=== PATIENT | male | born 1950 | race Caucasian/White ===

== ENCOUNTER 2016-11-06 16:28 | Inpatient (IN) ==
[2016-11-06] MEDS ORDERED: 0.9 % Sodium Chloride 1,000 ML IVC ONE ×2 (16:34→17:49)
[2016-11-06] MEDS ORDERED: Ondansetron 4 MG/2 ML VIAL IVP ONE (16:34)
[2016-11-06] MEDS ORDERED: 0.9 % Sodium Chloride 1,000 ML ONE (16:36)
[2016-11-06 17:27] LABS: Basophils % 0.2 %; Eosinophils # 0.1 K/mcL (0.0-0.6); Eosinophils % 0.3 %; Hemoglobin 12.9 g/dL (12.9-16.9); Immature Granulocytes % 0.6 % (0-4); Lymphocytes # 1.2 K/mcL (0.6-4.6); Mean Corpuscular HGB Conc 32.3 g/dL (31.6-35.5); Mean Corpuscular Hemoglobin 30.3 pg (28.0-33.3); Mean Corpuscular Volume 93.9 fL (83.0-100.0); Mean Platelet Volume 9.6 fL (9.4-12.4); Monocytes # 1.7 K/mcL (0.0-1.3); Monocytes % 8.7 %; Neutrophils # 16.2 K/mcL (1.6-8.9); Platelet Count 345 K/mcL (140-400); Red Blood Count 4.26 M/mcL (4.19-5.50); Red Cell Distribution Width 16.1 % (11.5-14.5); Segmented Neutrophils % 84.2 %
[2016-11-06 17:47] LABS: Albumin 2.7 g/dL (3.5-5.0); Albumin/Globulin Ratio 0.7 (1.1-2.2); Bilirubin,Direct 1.4 mg/dL (0.0-0.5); Bilirubin,Indirect 0.6 mg/dL (0.0-1.2); Calcium 10.6 mg/dL (8.6-10.8); Potassium 6.4 mEq/L (3.5-4.5); Total Protein 6.7 g/dL (6.0-8.3)
[2016-11-06] MEDS ORDERED: Calcium Gluconate 1,000 MG in D5% in Water 100 ML IVPB ONE (18:09)
[2016-11-06 18:28] LABS: INR 1.1; Prothrombin Time 12.2 Seconds (9.4-12.1)
[2016-11-06 18:30] LABS: Activated Partial Thrombo Time 27.3 Seconds (26.0-36.0)
[2016-11-06] MEDS: Ertapenem 1,000 MG in 0.9 % Sodium Chloride Mini Bag 100 ML IVPB SCH (18:42)
[2016-11-06] MEDS ORDERED: Ipratropium/Albuterol Neb 3 ML IH ONE (18:59)
[2016-11-06] MEDS ORDERED: methylPREDNISolone 125 MG/2 ML VIAL IVP ONE (18:59)
--- NOTE | 2016-11-06 19:12 | Emergency Department Note ---
Disposition Clinical Impression: Lung nodules, Liver lesion, Acute kidney injury, Hyperkalemia, Hypercalcemia Abdominal pain Qualifiers: Abdominal location: generalized Qualified Code(s): R10.84 - Generalized abdominal pain Disposition: Admitted As Inpatient Condition: Fair [facility] Provider[facility] - Forms: ED Satisfaction Letter, Work/School Release Time of Disposition: 20:37 Abdominal Pain HPI - General Chief Complaint: ED Abdominal Pain Stated Complaint: abdominal pain Time Seen by Provider: 11/06/16 16:34 Source: patient, EMS Mode of arrival: ambulatory Limitations: no limitations Nursing Notes Reviewed: Yes Vital Signs Reviewed: Yes - History of Present Illness HPI Narrative: Patient presents emergency room from the [facility] for evaluation of abdominal pain. You are seeing another facility and they are concerned because he is describing visual hallucinations and abdominal discomfort over the last 2- 3 days. Denied any other issues prior to transport. Pt Subjective Complaint: abdominal pain Onset (ago): day(s) Consistency: constant Location: periumbilical Pain Severity: mild Pain Scale: 0 Quality: cramping, stabbing, aching Radiation: none Migration to: no migration Improves with: nothing Worsens with: movement Context: history of similar episodes Associated symptoms: Reports: denies other symptoms Treatments prior to arrival: none - Related Data Home Medications Medication Instructions Recorded Confirmed Multivitamin [Multi-Day Vitamins] 1 each PO DAILY 03/22/15 11/06/16 Omeprazole [PriLOSEC] 20 mg PO BIDAC 03/22/15 11/06/16 Quetiapine Fumarate [Seroquel Xr] 150 mg PO HS 03/22/15 11/06/16 Alendronate Sodium [Fosamax] 70 mg PO QWEEK 10/30/16 11/06/16 Calcium Carbonate [Calcium] 600 mg PO DAILY 10/30/16 11/06/16 Cholecalciferol (Vitamin D3) 2,000 unit PO DAILY 10/30/16 11/06/16 [Vitamin D] Dicyclomine [Bentyl] 20 mg PO QID 10/30/16 11/06/16 HYDROcodone/Acet 5/325 mg [[place] 1.5 tab PO TID PRN 10/30/16 11/06/16 5-325 mg] Lisinopril [Zestril] 20 mg PO DAILY 10/30/16 11/06/16 Loratadine [Claritin] 10 mg PO DAILY 10/30/16 11/06/16 Magnesium Oxide [Magnesium] 400 mg PO DAILY 10/30/16 11/06/16 Metoprolol Succinate 50 mg PO DAILY 10/30/16 11/06/16 Montelukast [Singulair] 10 mg PO DAILY 10/30/16 11/06/16 Ondansetron HCl 8 mg PO TID PRN 10/30/16 11/06/16 Pravastatin Sodium [Pravachol] 20 mg PO DAILY 10/30/16 11/06/16 Theophylline Anhydrous [Henri-24] 100 mg PO DAILY 10/30/16 11/06/16 Vitamin E 400 unit PO TID 10/30/16 11/06/16 predniSONE [PredniSONE] 10 mg PO DAILY 10/30/16 11/06/16 Amoxicillin/Clavulanate [Augmentin] 875 mg PO BIDWM 11/06/16 11/06/16 Apoaequorin 10 mg PO DAILY 11/06/16 Budesonide/Formoterol 160/4.5 2 puff IH BIDR 11/06/16 11/06/16 [Symbicort 160/4.5] Gabapentin [Neurontin] 500 mg PO QID 11/06/16 11/06/16 GuaiFENesin/Dextromethorphan 10 ml PO Q4H PRN 11/06/16 11/06/16 [Tussin Dm Syrup] Guaifenesin [Tab Tussin] 400 mg PO Q12H PRN 11/06/16 11/06/16 Lactose-Reduced Food [Ensure Plus] 1 - 2 bottle PO BID 11/06/16 11/06/16 Levalbuterol Neb [Xopenex Neb] 1 vial IH Q6H PRN 11/06/16 11/06/16 Levalbuterol [Xopenex INH] 2 puff IH Q6H PRN 11/06/16 11/06/16 Lidocaine 4% CRM (LMX) [Lmx 4] 1 appl TP BID 11/06/16 11/06/16 Nicotine Polacrilex [Nicotine 2 mg BC BID PRN 11/06/16 11/06/16 Lozenge] Potassium Gluconate [Potassium] 400 mg PO DAILY 11/06/16 11/06/16 Tiotropium [Spiriva] 1 puff IH QAM 11/06/16 11/06/16 Previous Rx's Medication Instructions Recorded Doxycycline 100 mg PO BID #20 capsule 11/01/16 Allergies Allergy/AdvReac Type Severity Reaction Status Date / Time ampicillin Allergy Hives Verified 11/06/16 19:02 rosuvastatin [From Crestor] AdvReac Diarrhea Verified 11/06/16 19:02 [id number] Reductase AdvReac Diarrhea Verified 11/06/16 19:02 Inhibitor [Statins] All systems ED: reviewed and negative except as stated. Review of Systems: As Per HPI Constitutional: Reports: weakness. Denies: fever, chills Cardiovascular: Denies: chest pain, palpitations, dyspnea on exertion, orthopnea , edema Respiratory: Denies: cough, dyspnea, wheezes, hemoptysis Gastrointestinal: Reports: abdominal pain, nausea. Denies: vomiting, diarrhea, constipation Genitourinary: Denies: urgency, dysuria, frequency Musculoskeletal: Reports: back pain. Denies: neck pain Neurological: Denies: headache Psychiatric: Denies: anxiety, depression, suicidal thoughts, homicidal thoughts , auditory hallucinations, visual hallucinations Abdominal Pain PMH - Past Medical History Medical history: Reports: COPD, hyperlipidemia, hypertension Male Surgical History: Reports: herniorrhaphy Psychiatric history: Reports: no psych history - Social History Smoking status: Former smoker Alcohol use: Reports: none Drug use: Reports: none Physical Exam - General Limitations: no limitations General appearance: alert, in no apparent distress - Head Head exam: atraumatic, normocephalic, normal inspection - ENT ENT exam: normal exam, normal oropharynx, mucous membranes moist - Neck Neck exam: Present: normal inspection, full ROM, trachea midline - Chest Chest inspection: Present: normal inspection, symmetric chest wall rise - Respiratory Respiratory exam: Present: normal lung sounds bilaterally. Absent: respiratory distress, wheezes, stridor, accessory muscle use - Cardiovascular Cardiovascular exam: Present: normal rhythm, tachycardia. Absent: irregular rhythm, normal heart sounds - Abdominal Exam Abdominal exam: Present: soft, tenderness, normal bowel sounds. Absent: distention, guarding, rebound, rigidity, Stringer's sign, Rovsing's sign, tenderness at McBurney's Point, pulsatile mass, hernia - Extremities Exam Extremities exam: Present: normal inspection, full ROM, normal capillary refill. Absent: tenderness, pedal edema, joint swelling - Back Exam Back exam: Present: normal inspection, full ROM. Absent: tenderness - Neurological Exam Neurological exam: Present: alert, oriented X3, CN II-XII intact, normal gait - Psychiatric Psychiatric exam: Present: normal affect, normal mood. Absent: depressed, homicidal ideation, suicidal ideation - Skin Skin exam: Present: warm, dry, intact, normal color Course Course Narrative: Patient seen and examined the time arrival. See history of present illness. 66 -year-old male presents from [facility] for evaluation of abdominal pain and visual hallucinations. Patient had liver biopsy performed 7 days ago secondary to liver metastases. Unknown primary cancer based on history from EMS. On arrival here patient is mentating appropriately answering questions showing no acute signs of distress. He says that his abdomen hurts. He does have a history of an aortic aneurysm. Immediate bedside ultrasound was completed by myself showing stable aneurysm presentation at 4.3 cm throughout the abdominal wall. 2 different views were completed. Physical exam is otherwise benign. Head is atraumatic pupils are equal and reactive to light. He has decreased breath sounds bilaterally in the lower lungs. Heart is tachycardic but no murmurs are noted. Abdomen is soft but there is tenderness diffusely across the abdominal wall in the periumbilical region. Bowel sounds are noted in all 4 quadrants. He has no specific peritoneal-like symptoms guarding or rigidity. No CVA tenderness. No tenderness to the cervical thoracic or lumbar spine. He moves all 4 extremities with purpose is no acute signs of neurovascular decompensation or signs of ataxia or strokelike symptoms. Patient is concerning for infectious etiology secondary to the recent biopsy for antibiotic regimen for his known pneumonia. Patient is also concerning for cancer history and progression of lung metastases. Full workup to be completed including CTs of his chest and abdomen. Labs including blood cultures CBC chemistry urinalysis magnesium phosphorus to be over this time. Full infectious as well as cardiac evaluation to be completed. EKG, CT of the chest abdomen to be completed. His positional mostly banished the hospital - Reevaluation(s) Reevaluation #1: Multiple lab derangements coming back including elevated white blood cell count , potassium, calcium were all elevated. She also has newly found kidney dysfunction with creatinine of 2.34. Patient is concerning for multiple issues including infection sepsis end-stage renal disease metastatic liver disease with multiple liver function testing abnormalities. CT imaging of the abdomen and chest showed possible right lower lobe pneumonia or metastatic effusion or lesion. He also has metastatic disease in the right upper quadrant and the liver. Stable postbiopsy presentation this time. No other obstructive pathology or issues noted. Patient started on Invanz and concern for intra- abdominal pathology and then vancomycin added on at the request of the hospitalist. Patient was given Kayexalate and calcium gluconate for cardiac availability and stabilization secondary to hyperkalemia. Otherwise his EKG was reviewed showing sinus rhythm and no acute widening of the QRS or T-wave abnormalities. Patient's heart rate has been persistently tachycardic. We are unable to do an angiography study secondary to his kidney function. V/Q evaluation potential will be completed in the hospital setting. Due to the presentation symptoms medical intervention and medical history were discussed with the nurse practitioner Mali Hernadez. A review the presentation with her other recommendations from her at this time. Dr. Marques evaluated the patient personally in the emergency room. Multiple concerns from her noted at this time. Patient is critically ill we do not have a CODE STATUS. Otherwise he had no other recommendations. Patient is otherwise stable down here except for tachycardia. The rest of the medical management will be completed on the floor. Appreciate the hospitalist group evaluated the patient in the emergency room and helping with intervention. Patient to be admitted to hospitalist at this time her disposition and treatment course Time: 20:33 Vital Signs Temperature 98.9 F 11/06/16 16:30 Pulse Rate 129 11/06/16 16:30 Respiratory Rate 16 11/06/16 16:30 Blood Pressure 99/74 11/06/16 16:30 O2 Sat by Pulse Oximetry 97 11/06/16 16:30 Temperature 98.9 F 11/06/16 16:30 Pulse Rate 120 11/06/16 18:58 Respiratory Rate 18 11/06/16 18:58 Blood Pressure 122/63 11/06/16 18:58 O2 Sat by Pulse Oximetry 95 11/06/16 18:58 Oxygen Delivery Oxygen Delivery Nasal Cannula Abdominal Pain - MDM Narrative Medical decision making narrative: Abdominal pain, liver metastases, pneumonia, acute kidney insufficiency, dehydration, hyperkalemia, hypercalcemia - Medical Records Medical records reviewed: Yes I reviewed the patient's medical records. - Lab Data Lab results reviewed: Yes I reviewed the patient's lab results. Result diagrams: 11/06/16 17:15 11/06/16 17:15 Lab Results 11/06/16 11/06/16 11/06/16 Range/Units 17:15 17:15 17:15 WBC 19.2 H (4.3-11.1) K/mcL RBC 4.26 (4.19-5.50) M/mcL Hgb 12.9 (12.9-16.9) g/dL Hct 40.0 (37.5-50.1) % MCV 93.9 (83.0-100.0) fL MCH 30.3 (28.0-33.3) pg MCHC 32.3 (31.6-35.5) g/dL RDW 16.1 H (11.5-14.5) % Plt Count 345 (140-400) K/mcL MPV 9.6 (9.4-12.4) fL Immature Gran % 0.6 (0-4) % Seg Neutrophils % 84.2 % Lymphocytes % 6.0 % Monocytes % 8.7 % Eosinophils % 0.3 % Basophils % 0.2 % Neutrophils # 16.2 H (1.6-8.9) K/mcL Lymphocytes # 1.2 (0.6-4.6) K/mcL Monocytes # 1.7 H (0.0-1.3) K/mcL Eosinophils # 0.1 (0.0-0.6) K/mcL Basophils # 0.0 (0.0-0.2) K/mcL PT (9.4-12.1) Seconds INR APTT (26.0-36.0) Seconds Sodium 135 L (136-145) mEq/L Potassium 6.4 H (3.5-4.5) mEq/L Chloride 98 (98-109) mEq/L Carbon Dioxide 24 (19-29) mEq/L BUN 64 H (8-26) mg/dL Creatinine 2.36 H (0.72-1.25) mg/dL Est GFR ( Amer) 34 L (> 60) Est GFR (Non-Af Amer) 28 L (> 60) BUN/Creatinine Ratio 27 H (6-26) Glucose 57 L (70-99) mg/dL Calculated Osmolality 296 (280-300) Lactic Acid 2.7 H (0.5-2.2) mmol/L Calcium 10.6 (8.6-10.8) mg/dL Total Bilirubin 2.0 H (0.2-1.2) mg/dL Direct Bilirubin 1.4 H (0.0-0.5) mg/dL Indirect Bilirubin 0.6 (0.0-1.2) mg/dL AST 226 H (5-34) Units/L ALT 133 H (0-55) Units/L Alkaline Phosphatase 570 H (38-126) Units/L Creatine Kinase (30-200) Units/L Serum Total Protein 6.7 (6.0-8.3) g/dL Albumin 2.7 L (3.5-5.0) g/dL Globulin 4.0 H (2.4-3.5) g/dL Albumin/Globulin Ratio 0.7 L (1.1-2.2) Lipase 27 (8-78) Units/L Specimen Rejected Blood Type Antibody Screen 11/06/16 11/06/16 11/06/16 Range/Units 17:15 17:15 18:06 WBC (4.3-11.1) K/mcL RBC (4.19-5.50) M/mcL Hgb (12.9-16.9) g/dL Hct (37.5-50.1) % MCV (83.0-100.0) fL MCH (28.0-33.3) pg MCHC (31.6-35.5) g/dL RDW (11.5-14.5) % Plt Count (140-400) K/mcL MPV (9.4-12.4) fL Immature Gran % (0-4) % Seg Neutrophils % % Lymphocytes % % Monocytes % % Eosinophils % % Basophils % % Neutrophils # (1.6-8.9) K/mcL Lymphocytes # (0.6-4.6) K/mcL Monocytes # (0.0-1.3) K/mcL Eosinophils # (0.0-0.6) K/mcL Basophils # (0.0-0.2) K/mcL PT 12.2 H (9.4-12.1) Seconds INR 1.1 APTT 27.3 (26.0-36.0) Seconds Sodium (136-145) mEq/L Potassium (3.5-4.5) mEq/L Chloride (98-109) mEq/L Carbon Dioxide (19-29) mEq/L BUN (8-26) mg/dL Creatinine (0.72-1.25) mg/dL Est GFR ( Amer) (> 60) Est GFR (Non-Af Amer) (> 60) BUN/Creatinine Ratio (6-26) Glucose (70-99) mg/dL Calculated Osmolality (280-300) Lactic Acid (0.5-2.2) mmol/L Calcium (8.6-10.8) mg/dL Total Bilirubin (0.2-1.2) mg/dL Direct Bilirubin (0.0-0.5) mg/dL Indirect Bilirubin (0.0-1.2) mg/dL AST (5-34) Units/L ALT (0-55) Units/L Alkaline Phosphatase (38-126) Units/L Creatine Kinase (30-200) Units/L Serum Total Protein (6.0-8.3) g/dL Albumin (3.5-5.0) g/dL Globulin (2.4-3.5) g/dL Albumin/Globulin Ratio (1.1-2.2) Lipase (8-78) Units/L Specimen Rejected Clotted Blood Type A POSITIVE Antibody Screen NEGATIVE 11/06/16 Range/Units 18:06 WBC (4.3-11.1) K/mcL RBC (4.19-5.50) M/mcL Hgb (12.9-16.9) g/dL Hct (37.5-50.1) % MCV (83.0-100.0) fL MCH (28.0-33.3) pg MCHC (31.6-35.5) g/dL RDW (11.5-14.5) % Plt Count (140-400) K/mcL MPV (9.4-12.4) fL Immature Gran % (0-4) % Seg Neutrophils % % Lymphocytes % % Monocytes % % Eosinophils % % Basophils % % Neutrophils # (1.6-8.9) K/mcL Lymphocytes # (0.6-4.6) K/mcL Monocytes # (0.0-1.3) K/mcL Eosinophils # (0.0-0.6) K/mcL Basophils # (0.0-0.2) K/mcL PT (9.4-12.1) Seconds INR APTT (26.0-36.0) Seconds Sodium (136-145) mEq/L Potassium (3.5-4.5) mEq/L Chloride (98-109) mEq/L Carbon Dioxide (19-29) mEq/L BUN (8-26) mg/dL Creatinine (0.72-1.25) mg/dL Est GFR ( Amer) (> 60) Est GFR (Non-Af Amer) (> 60) BUN/Creatinine Ratio (6-26) Glucose (70-99) mg/dL Calculated Osmolality (280-300) Lactic Acid (0.5-2.2) mmol/L Calcium (8.6-10.8) mg/dL Total Bilirubin (0.2-1.2) mg/dL Direct Bilirubin (0.0-0.5) mg/dL Indirect Bilirubin (0.0-1.2) mg/dL AST (5-34) Units/L ALT (0-55) Units/L Alkaline Phosphatase (38-126) Units/L Creatine Kinase 468 H (30-200) Units/L Serum Total Protein (6.0-8.3) g/dL Albumin (3.5-5.0) g/dL Globulin (2.4-3.5) g/dL Albumin/Globulin Ratio (1.1-2.2) Lipase (8-78) Units/L Specimen Rejected Blood Type Antibody Screen - Radiology Data Radiology results reviewed: Yes I reviewed the patient's radiology results. CT of the chest and abdomen reviewed see radiologist read. - EKG Data EKG attestation: Yes I reviewed and interpreted this EKG. EKG shows normal: sinus rhythm, axis, intervals, QRS complexes, ST-T waves Rate: tachycardia Rhythm: NSR [place]/QRS: RBBB When compared to previous EKG there are: no significant changes Interpretation: no acute changes, unchanged when compared to prior tracing (date ) Critical Care Time Critical Care Time: Yes Total Critical Care Time: 45 Attestation: Critical care performed: Time is exclusive of separately billable procedures. Time includes: direct patient care, patient reassessment, coordination of patient care, interpretation of data (laboratory data, radiology data, and respiratory data), review of patient's medical records, medical consultation and documentation of patient care. Procedures included in critical care time: Procedures excluded from critical care time:
[2016-11-06] MEDS ORDERED: Vancomycin 500 MG in D5% in Water (Mini-Bag+) 100 ML IVPB STA (20:20)
--- NOTE | 2016-11-06 20:44 | Event Note ---
Date of Encounter: 11/06/16 Time of Encounter: 20:36 I examined this patient and my medical decision-making was reviewed with the Resident Physician, Dr. Nicholas Espinoza. I agree with the documented findings, disposition and treatment plan as described except to the extent set forth below. I have independently obtained history and examined the patient and my findings are summarized below: The patient presented to the hospital for evaluation of abdominal pain. He describes it as sharp, located in the right upper quadrant, 7/10 in intensity, started 3 days ago, worse with pressing on his abdomen, better with rest. Associated with nausea and nonbloody vomiting. Family history is pertinent for a history of coronary artery disease in the patient's brother and cancer in the patient's mother Social history: Patient is a long time smoker 30 cigarettes a day. Review of systems: Pertinent positive: Shortness of breath, cough productive of yellow and brown sputum, visual hallucinations, mild, dull chest pain, chronic back pain, recent episode of rectal bleed. Pertinent negatives: Fever, hematemesis, melena, urinary changes. Physical exam: Awake alert oriented 3. Heart exam reveals tachycardic S1 and S2 with no murmurs. Lungs auscultation reveals bilateral expiratory wheezes and right lower lobe rales. Abdomen is soft and tender to palpation in the right upper quadrant with voluntary guarding. No rebound tenderness. Laboratory studies: Potassium 6.4, creatinine 2.36, lactic acid 2.7. White blood cell count 19. Imaging studies: CT of the abdomen and pelvis reveals findings concerning for liver metastases, no evidence of acute processes. Plan: Patient appears to have pneumonia not responding to outpatient antibiotic treatment with Augmentin. 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 We will admit patient to the hospital and treat him with cefepime and vancomycin. For hyperkalemia he received IV fluids,, calcium gluconate and Kayexalate. We will follow potassium level in 4 hours. For severe sepsis we will follow up cultures, we will treat with IV fluids and antibiotics as above, follow-up lactic acid of 4 hours.
[2016-11-06] MEDS ORDERED: Vancomycin 750 MG in D5% in Water 250 ML IVPB SCH (22:00)
[2016-11-06] MEDS ORDERED: Ondansetron ODT 4 MG TAB.RAPDIS PO PRN (22:06)
--- NOTE | 2016-11-06 22:37 | Internal Med History&Physical ---
Date of Encounter: 11/06/16 Time of Encounter: 22:17 Assessment and Plan (1) Abdominal pain Current visit: Yes Status: Acute Patient presents with abdominal pain localized to the right upper quadrant and epigastric regions. As noted progressively getting worse over the past 3-5 days. This is been associated with nausea, vomiting. CT abdomen/pelvis: IMPRESSION: 1. No acute findings within the abdomen or pelvis. Stable infrarenal aortic aneurysm measuring 4.6 cm with no evidence of acute hemorrhage. 2. Diffuse hepatic metastatic disease. No unexpected findings following recent liver biopsy. 3. Right lower lobe infiltrate concerning for pneumonia. 4. Stable L1, L3 and L4 compression fractures. No acute osseous findings. Significant laboratory findings: The CBC of 19.2, neutrophil count of 16.2, elevated creatinine and diminished GFR, glucose of 57, lactic acid 2.7, corrected calcium is 11.6, transaminitis, elevated alkaline phosphate at 570 and creatinine kinase of 468. - Mr. Sanchez has known liver metastatic disease with Liver, biopsy: Positive for carcinoma with neuroendocrine. He was evaluated by Dr. Butler and had a bronchoscopy around 02/08/2015. It showed benign-looking narrowing in the bronchus mainly left upper lobe. Biopsy of the left upper lobe area showed atypical squamous cells and biopsy showed dysplastic squamous cells. - I suspect his abdominal pain may be related to hypercalcemia with nausea and vomiting resulting in dehydration and lactic acidosis. The concerning factors of hyperkalemia, hypercalcemia and known cancer but the risk for tumor lysis syndrome but his clinical picture does not show acute distress. He was also treated for pneumonia [facility] but continues to have a elevated WBC of 19.2 and a left shift. As he continues to not do well it appears he may have failed outpatient treatment for pneumonia with a chest CT demonstrating a new masslike right lower lobe infiltrate favoring infectious or inflammatory findings. Plan: - Antibiotic coverage with cefepime and vancomycin as the patient has a history of MRSA. - He has received Kayexalate and calcium gluconate for hyper kalemia and recheck a potassium in 4 hours. - He is receiving normal saline at 125 mL's per hour for dehydration. - We will hold patient's vitamin D and oral calcium with his hypercalcemia. Elevated calcium is likely related to his cancer but may also be partially dehydration. - Blood cultures, urine cultures - Repeat lactic acid in one hour - Transaminitis and elevated alkaline phosphate likely secondary to diffuse liver metastatic prostatic disease. We will continue to monitor. Will hold off on patient's statin medication. Qualifiers: Abdominal location: generalized Qualified Code(s): R10.84 - Generalized abdominal pain (2) Pneumonia Current visit: Yes Status: Acute Patient recently treated for pneumonia in the outpatient setting from the [facility]. Oral antibiotics of azithromycin and doxycycline palpation. Appears he may have failed outpatient therapy as he continues to be declining with weakness, nausea vomiting. Patient meets sepsis criteria with a new right lower lobe and filtration seen on chest CT with associated elevated WBC count left shift, tachycardia and acute kidney injury. Continue antibiotic coverage with cefepime and vancomycin renally dosed. Qualifiers: Qualified Code(s): J18.9 - Pneumonia, unspecified organism (3) Lactic acidosis Current visit: Yes Status: Acute Likely secondary to dehydration and recent nausea and vomiting. - Providing normal saline rehydration and we will recheck lactic acid level. - There is a reduced morbidity and mortality with reducing lactic acid below 2.0 (4) Acute kidney injury Current visit: Yes Status: Acute Acute kidney injury in the setting of dehydration and nausea and vomiting. The patient appears to be dehydrated on clinical examination. This is also likely contributing to his hyperkalemia. Plan: - Continue normal saline rehydration - Monitor renal function with a.m. labs - Avoid nephrotoxic medications and renally dose antibiotics (5) Hypercalcemia Current visit: Yes Status: Acute As discussed above. (6) Hyperkalemia Current visit: Yes Status: Acute As discussed above. (7) Liver lesion Current visit: Yes Status: Acute As discussed above. (8) Lung nodules Current visit: Yes Status: Acute As discussed above. Chest CT: IMPRESSION: 1. New masslike right lower lobe infiltrate, favored to be infectious or inflammatory. There is severe emphysema and malignancy cannot be excluded. A follow-up chest CT in 3 months is recommended to document improvement/resolution. 2. Stable 1.4 cm left upper lung nodular density when compared with studies from 2017. This was previously described as chronic mucous plugging. However, this finding is increased from 2016. Continued surveillance of this lesion on subsequent chest CTs is recommended. 3. Moderate inferior endplate fracture of L1, stable from the previous examination in October, but new since August 2016. (9) DVT prophylaxis Current visit: Yes Status: Acute Lovenox SQ Internal Medicine - H&P: HPI Chief complaint: abdominal pain Admitted From: Emergency Dept Plans for Post Hospital Care: Home History of present illness: Mr. Vega is a 66 year old male with a past medical history of emphysema, coronary artery disease, recent cancer diagnosis, HTN admitted with abdominal pain. He states that he started developing abdominal pain 5 days ago which has slowly gotten worse over the past several days. He describes the pain as sharp , mainly localized to the right upper quadrant with some pain in the midepigastric region. His pain intensity is 7 out of 10. He describes the worst of it started 3 days ago but he did have some minor epigastric pain for 2 days prior. The pain is exacerbated with movements and abdominal pressure. It improves with rest. He had associated nausea and vomiting over the last several days with yesterday's the last episode of vomiting was bilious in color. He also states that for the similar length of time he is progressively gotten weaker, he describes his gait is unsteady and is unable to ambulate or walk. He said this has been getting worse over the last couple of days he has felt drowsy. He has not been feeling well and his appetite has diminished. Not even eat today. This is very concerning to him. He mentions that he had a recent biopsy in his abdomen of a mass. He was told he has liver nodules but is unsure if it is cancer. She feels that it is cancer. He mentions that he was recently prescribed antibiotics at the [facility] for pneumonia and has been taking them as prescribed. He takes his medications as prescribed and has been taking oral calcium. He denies any fevers, chills, sweating, blurry vision, shortness of breath outside of his regular. Diarrhea or constipation, chest pain or palpitations, change in urination or bowel functions. She has a history of a recent vertebral fracture has caused him chronic back pain for which she is taking pain medications. He is a [place] that and was exposed to agent orange in the past. Past Med Surg Social Fam HX - Past Medical History Medical history: COPD, hyperlipidemia, hypertension Psychiatric history: no psych history - Social History Smoking Status: Former smoker Smokeless Tobacco Status: Yes Alcohol use: none Drug use: none - Family History Mother Living Status: Age at : 74 Internal Medicine - H&P: Meds Multivitamin [Multi-Day Vitamins] 1 each PO DAILY 03/22/15 [History] Omeprazole [PriLOSEC] 20 mg PO BIDAC 03/22/15 [History] Quetiapine Fumarate [Seroquel Xr] 150 mg PO HS 03/22/15 [History] Alendronate Sodium [Fosamax] 70 mg PO QWEEK 10/30/16 [History] Calcium Carbonate [Calcium] 600 mg PO DAILY 10/30/16 [History] Cholecalciferol (Vitamin D3) [Vitamin D] 2,000 unit PO DAILY 10/30/16 [History] Dicyclomine [Bentyl] 20 mg PO QID 10/30/16 [History] HYDROcodone/Acet 5/325 mg [Empire 5-325 mg] 1.5 tab PO TID PRN 10/30/16 [History] Lisinopril [Zestril] 20 mg PO DAILY 10/30/16 [History] Loratadine [Claritin] 10 mg PO DAILY 10/30/16 [History] Magnesium Oxide [Magnesium] 400 mg PO DAILY 10/30/16 [History] Metoprolol Succinate 50 mg PO DAILY 10/30/16 [History] Montelukast [Singulair] 10 mg PO DAILY 10/30/16 [History] Ondansetron HCl 8 mg PO TID PRN 10/30/16 [History] Pravastatin Sodium [Pravachol] 20 mg PO DAILY 10/30/16 [History] Theophylline Anhydrous [Henri-24] 100 mg PO DAILY 10/30/16 [History] Vitamin E 400 unit PO TID 10/30/16 [History] predniSONE [PredniSONE] 10 mg PO DAILY 10/30/16 [History] Doxycycline 100 mg PO BID #20 capsule 11/01/16 [Rx] Amoxicillin/Clavulanate [Augmentin] 875 mg PO BIDWM 11/06/16 [History] Apoaequorin 10 mg PO DAILY 11/06/16 [History] Budesonide/Formoterol 160/4.5 [Symbicort 160/4.5] 2 puff IH BIDR 11/06/16 [ History] Gabapentin [Neurontin] 500 mg PO QID 11/06/16 [History] GuaiFENesin/Dextromethorphan [Tussin Dm Syrup] 10 ml PO Q4H PRN 11/06/16 [ History] Guaifenesin [Tab Tussin] 400 mg PO Q12H PRN 11/06/16 [History] Lactose-Reduced Food [Ensure Plus] 1 - 2 bottle PO BID 11/06/16 [History] Levalbuterol Neb [Xopenex Neb] 1 vial IH Q6H PRN 11/06/16 [History] Levalbuterol [Xopenex INH] 2 puff IH Q6H PRN 11/06/16 [History] Lidocaine 4% CRM (LMX) [Lmx 4] 1 appl TP BID 11/06/16 [History] Nicotine Polacrilex [Nicotine Lozenge] 2 mg BC BID PRN 11/06/16 [History] Potassium Gluconate [Potassium] 400 mg PO DAILY 11/06/16 [History] Tiotropium [Spiriva] 1 puff IH QAM 11/06/16 [History] Allergies ampicillin Allergy (Verified 11/06/16 19:02) Hives rosuvastatin [From Crestor] Adverse Reaction (Verified 11/06/16 19:02) Diarrhea Ptdzgfi-Loe-Mst Reductase Inhibitor [Statins] Adverse Reaction (Verified 19:02) Diarrhea All Systems PM: A 10-system review of systems was performed and is negative for pertinent findings except as documented above in the HPI. - Constitutional Constitutional: fatigue, malaise, weakness, no chills, no fever(s), no night sweats - EENT Eyes: no change in vision, no discharge, no pain, no photophobia Ears: no ear discharge, no ear pain, no tinnitus Nose, mouth and throat: no dysphagia, no nasal discharge, no neck pain, no sore throat - Cardiovascular Cardiovascular ROS IM: no chest pain, no diaphoresis, no dyspnea, no lightheadedness, no palpitations, no syncope - Respiratory Respiratory: dyspnea, wheezing, no cough, no excessive phlegm production - Gastrointestinal Gastrointestinal: abdominal pain, nausea, vomiting, no diarrhea, no hematemesis , no hematochezia, no melena - Musculoskeletal Musculoskeletal ROS IM: back pain, muscle weakness, no numbness, no tingling - Integumentary Integumentary IM: no rash, no unusual bruising - Neurological Neurological ROS: abnormal gait, no confusion, no convulsions, no focal weakness , no numbness, no tingling, no tremor(s) - Hematologic/Lymphatic Hematologic/Lymphatic: no easy bruising - Constitutional Vitals: Temp Pulse Resp BP Pulse Ox 98.7 F 114 18 135/76 96 11/06/16 21:46 11/06/16 21:46 11/06/16 21:46 11/06/16 21:46 11/06/16 21:46 General appearance: Present: cachectic, cooperative, A&O X 3, pleasant, no acute distress, underweight - Head Head exam: Present: atraumatic, normocephalic - Eye Eye exam: Present: PERRL, conjuntiva pink, sclera anicteric Pupils: Present: PERRL - ENT ENT exam: Present: mucous membranes dry - Neck Neck exam general surgery: Present: supple, trachea midline. Absent: lymphadenopathy - Respiratory Respiratory exam: Present: decreased breath sounds, prolonged expiratory phase, wheezes. Absent: chest wall tenderness, respiratory distress - Cardiovascular Cardiovascular exam: Present: RRR - GI/Abdominal GI/Abdominal exam: Present: distended, hepatomegaly, normal bowel sounds, soft, tenderness (To palpation of the epigastric and right upper quadrant.). Absent: firm, hernia, hyperactive bowel sounds, rebound - Extremities Exam Extremities exam: Present: warm, radial pulses palpable and symetrical. Absent : calf tenderness, cyanotic, pedal edema - Neurological Exam Neurological exam: Present: CN II-XII intact, oriented X3, no focal deficits. Absent: pronater drift, facial droop, speech deficit - Psychiatric Psychiatric exam: Present: normal affect, normal mood Internal Med - H&P Results - Labs CBC & Chem 7: 11/06/16 17:15 11/06/16 17:15
[2016-11-06] MEDS: *HR* HYDROcodone/Acet 5/325 mg TABLET PO PRN (23:33)
[2016-11-07 00:36] LABS: Bilirubin,Urine Negative (Negative); Blood,Urine Negative (Negative); Clarity,Urine Clear (Clear); Color,Urine Yellow (Yellow); Glucose,Urine (UA) Normal (Normal); Ketones,Urine 15 mg/dL (Negative); Leukocyte Esterase,Urine Negative (Negative); Nitrite,Urine Negative (Negative); Protein,Urine 30 mg/dL (Neg-Trace); Specific Gravity,Urine 1.021 (1.010-1.025); Urobilinogen,Urine Normal (Normal)
[2016-11-07 00:37] LABS: Hyaline Casts,Urine None Seen per lpf (None-Few); RBC,Urine 0-3 per hpf (0-3); Squamous Epithelial Cell,Urine Few per lpf (None-Few); WBC,Urine 0-3 per hpf (0-3)
[2016-11-07 00:50] LABS: Bacteria,Urine Few per hpf (None-Few)
[2016-11-07] MEDS: Levalbuterol 1 PUFF INHALER IH SCH ×3 (03:47→16:21)
[2016-11-07] MEDS: Cefepime HCl 2,000 MG in D5% in Water (Mini-Bag+) 100 ML IVPB SCH ×2 (06:40→17:16)
[2016-11-07] MEDS: *HR* Enoxaparin 30 MG/0.3 ML SYRINGE SQ SCH (06:46)
[2016-11-07] MEDS: *HR* HYDROcodone/Acet 5/325 mg TABLET PO PRN ×3 (06:51→21:04)
[2016-11-07] MEDS ORDERED: *HR* Dextrose 50 % in Water (Syg) 50 ML SYRINGE IVP PRN (08:30)
[2016-11-07] MEDS: Gabapentin 100 MG CAPSULE PO SCH ×4 (08:37→21:05)
[2016-11-07] MEDS: Metoprolol XL (24 HR) Succ 50 MG TAB.ER.24H PO SCH (08:38)
[2016-11-07] MEDS: predniSONE 10 MG TABLET PO SCH (08:39)
[2016-11-07] MEDS: Ertapenem 1,000 MG in 0.9 % Sodium Chloride Mini Bag 100 ML IVPB SCH (08:39)
[2016-11-07] MEDS ORDERED: LACTOSE REDUCED FOOD PO SCH (09:00)
--- NOTE | 2016-11-07 09:34 | Event Note ---
Date of Encounter: 11/07/16 Time of Encounter: 09:30 Palliative received consult on this pt - however, his biopsy results from a few days ago have not been revealed or discussed with him. Oncology consult has been ordered. D/W Dr. Eric - will hold on consultation until oncology has had a chance to see/discuss diagnosis and treatment options with pt.
[2016-11-07] MEDS ORDERED: Vancomycin 1 EACH in D5% in Water 250 ML IVPB PRN (09:43)
[2016-11-07] MEDS: Lidocaine 4% CREAM (LMX) 5 GM TP SCH (09:57)
--- NOTE | 2016-11-07 10:28 | Internal Med Progress Note ---
<Nirmal Ingram - Last Filed: 11/07/16 15:32> Date of Encounter: 11/07/16 Time of Encounter: 10:27 - Assessment and plan (1) Liver carcinoma Current Visit: Yes Status: Acute Assessment and plan: 11/02/16 Liver, biopsy: Positive for carcinoma with neuroendocrine features Oncology consulted, patient was scheduled for a PET scan prior to admission (2) Abdominal pain Current Visit: Yes Status: Acute Assessment and plan: Sharp abdominal pain localized to the right upper quadrant and epigastric region likely related to hepatic carcinoma CT abdomen and pelvis reveals Diffuse hepatic metastatic disease. Qualifiers: Abdominal location: generalized Qualified Code(s): R10.84 - Generalized abdominal pain (3) Pneumonia Current Visit: Yes Status: Acute Assessment and plan: CT chest shows Right lower lobe infiltrate concerning for pneumonia. elevated WBC of 19.2 and a left shift, repeat lactic acid 1.9 Continue antibiotic coverage with cefepime and vancomycin (Day 1) Qualifiers: Qualified Code(s): J18.9 - Pneumonia, unspecified organism (4) Acute kidney injury Current Visit: Yes Status: Acute Assessment and plan: Prerenal JEWEL secondary to dehydration. Continue IV fluids at 125 mL/h (5) COPD without exacerbation Current Visit: Yes Status: Chronic Assessment and plan: Patient wears baseline 2 L supplemental oxygen via nasal cannula at home Received Solu-Medrol and 25 mg IV in ED, Continue home prednisone 10 mg by mouth daily Continue cefepime and vancomycin (day 1) Continue duo nebs as scheduled (6) Hyperkalemia Current Visit: Yes Status: Acute Assessment and plan: Improved. Continue Kayexalate, albuterol, and repeat CMP in a.m. (7) Hypercalcemia Current Visit: Yes Status: Acute Assessment and plan: Corrected calcium is 11.6 We will hold patient's vitamin D and oral calcium with his hypercalcemia. Elevated calcium is likely related to his cancer (8) Lung nodules Current Visit: Yes Status: Acute Assessment and plan: CT chest revealed lower lobe infiltrate with masslike appearance which could be malignant infiltrate. He was evaluated by Dr. Butler and had a bronchoscopy around 02/08/2015. It showed benign-looking narrowing in the bronchus mainly left upper lobe. Biopsy of the left upper lobe area showed atypical squamous cells and biopsy showed dysplastic squamous cells. (9) DVT prophylaxis Current Visit: Yes Status: Acute Assessment and plan: Gissel Patient seen and examined, plan discussed with and agreed upon with Dr. Eric - Subjective Interval history: The resting comfortably in bed. He reports no abdominal pain worse with movement and palpation. He reports good appetite. Awaiting oncology recommendations - Constitutional Vitals: Temp Pulse Resp BP Pulse Ox 97.5 F L 59 20 122/77 96 11/07/16 07:01 11/07/16 07:01 11/07/16 07:01 11/07/16 07:01 11/07/16 08:58 General appearance: Present: cachectic, cooperative, A&O X 3, pleasant, no acute distress, underweight, answers questions appropriately - Head Head exam: Present: atraumatic, normocephalic - Eye Eye exam: Present: PERRL, conjuntiva pink, sclera anicteric. Absent: scleral icterus Pupils: Present: PERRL - ENT ENT exam: Present: mucous membranes dry, normal oropharynx - Neck Neck exam general surgery: Present: supple, trachea midline. Absent: lymphadenopathy - Respiratory Respiratory exam: Present: decreased breath sounds, prolonged expiratory phase, wheezes. Absent: accessory muscle use, rales, respiratory distress, rhonchi - Cardiovascular Cardiovascular exam: Present: RRR, +S1, +S2. Absent: diastolic murmur, gallop, rubs, systolic murmur - GI/Abdominal GI/Abdominal exam: Present: distended, firm, guarding (Involuntary), hepatomegaly, normal bowel sounds, tenderness, no peritoneal signs. Absent: soft Additional comments: Right upper quadrant - Extremities Exam Extremities exam: Present: warm, radial pulses palpable and symetrical. Absent : calf tenderness, cyanotic, pedal edema - Neurological Exam Neurological exam: Present: CN II-XII intact, oriented X3, no focal deficits. Absent: pronater drift, facial droop, speech deficit - Psychiatric Psychiatric exam: Present: normal affect, normal mood - Skin Skin exam: Present: dry, intact, warm Internal Medicine: Result - Labs CBC & Chem 7: 11/06/16 17:15 11/07/16 04:08 - ABG Interpretation ABG results: PT/INR, D-dimer PT 12.2 Seconds (9.4-12.1) H 11/06/16 18:06 Consult Discharge Plan - Plan [facility]: [facility] Care Provider[facility] - <[facility] - Last Filed: 11/07/16 18:38> Date of Encounter: 11/07/16 - Constitutional Vitals: Temp Pulse Resp BP Pulse Ox 98.0 F 94 18 126/75 98 11/07/16 15:10 11/07/16 15:10 11/07/16 16:18 11/07/16 15:10 11/07/16 16:18 Internal Medicine: Result - Labs CBC & Chem 7: 11/06/16 17:15 11/07/16 04:08 - ABG Interpretation ABG results: PT/INR, D-dimer PT 12.2 Seconds (9.4-12.1) H 11/06/16 18:06 - Attending Attestation I examined this patient and my medical decision-making was reviewed with the Resident Physician. I agree with the documented findings, disposition and treatment plan as described except to the extent set forth below. Spoke to Dr Robles ( Oncology) agreed to see patient. will follow oncology recommendations.
[2016-11-07] MEDS: Budesonide/Formoterol 160/4.5 MDI IH SCH ×2 (10:52→23:13)
[2016-11-07] MEDS: Tiotropium 18 MCG inhalation IH SCH (10:53)
[2016-11-07] MEDS: 0.9 % Sodium Chloride 1,000 ML IVC SCH (12:36)
--- NOTE | 2016-11-07 13:54 | Electrocardiograph Report ---
[address] [address] Test Date: 2016-11-06 Pat Name: Nicholas Vega Department: [id number] Room: 2A Gender: M Blowing Weasand: TIA : 1950 Requested By: Donovan Sagastume Order Number: [id number] Reading MD: Antwan Reese MD Measurements Intervals [place] Rate: 124 P: 76 MN: 125 QRS: 75 QRSD: 100 T: 64 QT: 305 QTc: 379 Interpretive Statements SINUS TACHYCARDIA INCOMPLETE RIGHT BUNDLE BRANCH BLOCK Electronically Signed On 11-07-2016 13:53:07 EDT by Antwan Reese MD
[2016-11-07] MEDS ORDERED: Vancomycin 750 MG in D5% in Water 250 ML IVPB ONE (14:59)
[2016-11-07] MEDS: Ipratropium/Albuterol Neb 3 ML IH PRN ×2 (16:18→23:12)
--- NOTE | 2016-11-07 20:33 | Oncology Inp Consult Note ---
Date of Encounter: 11/07/16 Time of Encounter: 20:31 Assessment and Plan (1) Metastatic malignant neuroendocrine tumor to liver Status: Acute Assessment and plan: multiple liver metastasis with hepatomegaly. Elevated liver enzymes and alkaline phosphatase He is also going in for acute renal failure. This tumor is aggressive and behaving clinically like small cell carcinoma. Would consider palliative chemotherapy with carboplatin AUC 5 day one and etoposide 60 mg/m day 1-3. We will repeat cycle every 21 days for maximum of 6 cycles We will start cycle 1 and a slightly lower dose and for 2 days He is at high risk for tumor lysis syndrome. Potassium already high at 5.8. Monitor phosphorus as well. Start Allopurinol 200 mg by mouth at bedtime - Data of Consult Patient: known to practice within the last 3 years Requesting Physician: Moses Eric MD Primary Care Provider: PCP [place] - Consult Narrative History of present illness: Mr. Vega is a 66 year old male admitted with increasing abdominal pain. He has hepatomegaly from the AST ALT and alkaline phosphatase elevated to 500 range. Acute renal insufficiency. Creatinine 2.36. His creatinine was normal in June 2016 oncological history Bilateral lung nodules. He also has increased shortness of breath. He was evaluated by Dr. Butler and had a bronchoscopy around 02/08/2015. It showed benign-looking narrowing in the bronchus mainly left upper lobe. Biopsy of the left upper lobe area showed atypical squamous cells and biopsy showed dysplastic squamous cells. A PET scan on 03/30/2015 showed left hilar lymph node metabolically active and few mediastinal lymph nodes. Discussed at the tumor board. Another bronchoscopy 05/10/2015 showed left upper lobe endobronchial lesion atypical squamous cells suggesting at least carcinoma in situ. No invasive carcinoma per pathology. FNA on the bilateral hilar lymph node and subcarinal negative for malignancy. Evaluated by Dr. Holcomb. Radiation was not an option as he had PET activity in both left hilum and right hilar lymph nodes. He also had a videoconference with the thoracic surgery [facility] and they compared the CAT scan from 05/18/2015. They recommended conservative management with repeat CAT scan. CTA chest on 04/21/16 shows no evidence of PE Chronic mucous plugging in the left upper lobe. No mention of any lung nodules. Mediastinal lymph node fairly stable including the precarinal lymph node. CAT scan showed possible thrombus in the right internal jugular vein he had bedside Doppler which showed the vessel is compressible and bilateral flow the emergency room and it was decided not to anticoagulate him. He denied taking aspirin CT chest 08/19/2016 at a [facility] showed multiple liver lesions which were new compared to 03/15/2016. Also showed 1.1 cm nodular density left suprahilar region. 3 mm pulmonary nodule right lower lobe was new as well. This was followed by CT abdomen and pelvis August 20, 2016 showed numerous low- density hepatic lesions measuring up to 2.1 cm area of another CT abdomen and pelvis to 2 liver lesions Pathology Liver biopsy 11/02/2016 showed high-grade neuroendocrine carcinoma likely lung origin. I spoke with the pathologist Dr. Louise today. TTF-1 focally positive and CK 7 positive. Ki-67 is high around 80%. This is clinically behaving like small cell carcinoma Past medical history COPD Anemia and he received 3 and infusions last month. Rest of CBC unremarkable. 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 mild anemia hemoglobin 12.3 in March 2015. Rest of CBC unremarkable ECHO results from 05/03/15, LVEF 65-70%. stress test on 08/02/15 shows EF-71% otherwise negative Past surgical history Hernia surgery both sides 2008 Endoscopies September 2014 Allergies Statins which causes diarrhea. Family history Mother of lung cancer and she smoked. Mother and brother had heart disease. Personal history Smoked 2 packs per day for 52 years. Quit 2 years ago around 2012 No alcohol No drug abuse Retired Has 10 cats and 3 dogs The rash but lives with girlfriend in [place] area Past Med Surg Social Fam HX - Past Medical History Medical history: COPD, hyperlipidemia, hypertension Psychiatric history: no psych history - Social History Smoking Status: Former smoker Smokeless Tobacco Status: Yes Alcohol use: none Drug use: none - Family History Mother Living Status: Age at : 75 Medications and Allergies Multivitamin [Multi-Day Vitamins] 1 each PO DAILY 03/22/15 [History] Omeprazole [PriLOSEC] 20 mg PO BIDAC 03/22/15 [History] Quetiapine Fumarate [Seroquel Xr] 150 mg PO HS 03/22/15 [History] Alendronate Sodium [Fosamax] 70 mg PO QWEEK 10/30/16 [History] Calcium Carbonate [Calcium] 600 mg PO DAILY 10/30/16 [History] Cholecalciferol (Vitamin D3) [Vitamin D] 2,000 unit PO DAILY 10/30/16 [History] Dicyclomine [Bentyl] 20 mg PO QID 10/30/16 [History] HYDROcodone/Acet 5/325 mg [[place] 5-325 mg] 1.5 tab PO TID PRN 10/30/16 [History] Lisinopril [Zestril] 20 mg PO DAILY 10/30/16 [History] Loratadine [Claritin] 10 mg PO DAILY 10/30/16 [History] Magnesium Oxide [Magnesium] 400 mg PO DAILY 10/30/16 [History] Metoprolol Succinate 50 mg PO DAILY 10/30/16 [History] Montelukast [Singulair] 10 mg PO DAILY 10/30/16 [History] Ondansetron HCl 8 mg PO TID PRN 10/30/16 [History] Pravastatin Sodium [Pravachol] 20 mg PO DAILY 10/30/16 [History] Theophylline Anhydrous [Henri-24] 100 mg PO DAILY 10/30/16 [History] Vitamin E 400 unit PO TID 10/30/16 [History] predniSONE [PredniSONE] 10 mg PO DAILY 10/30/16 [History] Doxycycline 100 mg PO BID #20 capsule 11/01/16 [Rx] Amoxicillin/Clavulanate [Augmentin] 875 mg PO BIDWM 11/06/16 [History] Apoaequorin 10 mg PO DAILY 11/06/16 [History] Budesonide/Formoterol 160/4.5 [Symbicort 160/4.5] 2 puff IH BIDR 11/06/16 [ History] Gabapentin [Neurontin] 500 mg PO QID 11/06/16 [History] GuaiFENesin/Dextromethorphan [Tussin Dm Syrup] 10 ml PO Q4H PRN 11/06/16 [ History] Guaifenesin [Tab Tussin] 400 mg PO Q12H PRN 11/06/16 [History] Lactose-Reduced Food [Ensure Plus] 1 - 2 bottle PO BID 11/06/16 [History] Levalbuterol Neb [Xopenex Neb] 1 vial IH Q6H PRN 11/06/16 [History] Levalbuterol [Xopenex INH] 2 puff IH Q6H PRN 11/06/16 [History] Lidocaine 4% CRM (LMX) [Lmx 4] 1 appl TP BID 11/06/16 [History] Nicotine Polacrilex [Nicotine Lozenge] 2 mg BC BID PRN 11/06/16 [History] Potassium Gluconate [Potassium] 400 mg PO DAILY 11/06/16 [History] Tiotropium [Spiriva] 1 puff IH QAM 11/06/16 [History] Allergies ampicillin Allergy (Verified 11/06/16 19:02) Hives rosuvastatin [From Crestor] Adverse Reaction (Verified 11/06/16 19:02) Diarrhea Wbaddaz-Nja-Bmj Reductase Inhibitor [Statins] Adverse Reaction (Verified 19:02) Diarrhea Oncology - Exam - Constitutional Vitals: Temp Pulse Resp BP Pulse Ox 98.0 F 94 18 126/75 98 11/07/16 15:10 11/07/16 15:10 11/07/16 16:18 11/07/16 15:10 11/07/16 16:18 Consult Discharge Plan - Plan [facility]errals: [facility] [Primary Care Provider[facility] -
[2016-11-08] MEDS ORDERED: Prochlorperazine 10 MG/2 ML VIAL IV PRN
[2016-11-08] MEDS ORDERED: *HR* LORazepam 2 MG/ML VIAL IV PRN
[2016-11-08] MEDS ORDERED: Fosaprepitant Dimeglumine 150 MG in 0.9 % Sodium Chloride 250 ML IV SCH
[2016-11-08] MEDS ORDERED: Famotidine 20 MG/2 ML VIAL IV PRN
[2016-11-08] MEDS ORDERED: Furosemide 20 MG/2 ML VIAL IVP PRN
[2016-11-08] MEDS ORDERED: MAGNESIUM SULFATE IV SCH
[2016-11-08] MEDS ORDERED: 0.9 % Sodium Chloride w KCl 20 MEQ/1,000 ML MLS IVC ONE
[2016-11-08] MEDS ORDERED: ETOPOSIDE IV SCH
[2016-11-08] MEDS ORDERED: Dexamethasone 10 MG/ML VIAL IV PRN
[2016-11-08] MEDS ORDERED: CISPLATIN IV SCH
[2016-11-08] MEDS ORDERED: SODIUM CHLORIDE 0.9% IV SCH ×2
[2016-11-08] MEDS ORDERED: Dexamethasone 10 MG/ML VIAL IV ONE
[2016-11-08] MEDS: Levalbuterol 1 PUFF INHALER IH SCH ×5 (00:47→22:35)
[2016-11-08] MEDS: Lidocaine 4% CREAM (LMX) 5 GM TP SCH ×3 (03:28→21:53)
[2016-11-08] MEDS: Ipratropium/Albuterol Neb 3 ML IH PRN ×4 (04:20→22:32)
[2016-11-08 05:45] LABS: Basophils % 0.1 %; Eosinophils % 0.2 %; Hematocrit 33.9 % (37.5-50.1); Immature Granulocytes % 0.7 % (0-4); Lymphocytes # 1.3 K/mcL (0.6-4.6); Mean Corpuscular HGB Conc 32.2 g/dL (31.6-35.5); Mean Corpuscular Hemoglobin 29.5 pg (28.0-33.3); Mean Corpuscular Volume 91.6 fL (83.0-100.0); Monocytes # 1.2 K/mcL (0.0-1.3); Neutrophils # 10.6 K/mcL (1.6-8.9); Platelet Count 302 K/mcL (140-400); Red Cell Distribution Width 16.2 % (11.5-14.5)
[2016-11-08 05:56] LABS: Alanine Aminotransferase 135 Units/L (0-55); Albumin 2.3 g/dL (3.5-5.0); Albumin/Globulin Ratio 0.7 (1.1-2.2); Alkaline Phosphatase 574 Units/L (38-126); Aspartate Amino Transferase 244 Units/L (5-34); BUN/Creatinine Ratio 27 (6-26); Calcium 9.5 mg/dL (8.6-10.8); Carbon Dioxide 28 mEq/L (19-29); Chloride 104 mEq/L (98-109); Globulin 3.5 g/dL (2.4-3.5); Glucose 64 mg/dL (70-99); Osmolality,Calculated 287 (280-300); Potassium 4.8 mEq/L (3.5-4.5); Sodium 138 mEq/L (136-145); Total Protein 5.8 g/dL (6.0-8.3); eGFR For African Americans > 60 (> 60); eGFR For Non-African Americans > 60 (> 60)
[2016-11-08 05:57] LABS: Blood Urea Nitrogen 21 mg/dL (8-26)
[2016-11-08 05:58] LABS: Hemoglobin 10.9 g/dL (12.9-16.9)
[2016-11-08] MEDS: Cefepime HCl 2,000 MG in D5% in Water (Mini-Bag+) 100 ML IVPB SCH ×2 (07:38→19:31)
[2016-11-08] MEDS: 0.9 % Sodium Chloride 1,000 ML IVC SCH ×2 (07:38→20:40)
[2016-11-08] MEDS: *HR* Enoxaparin 30 MG/0.3 ML SYRINGE SQ SCH (07:39)
[2016-11-08] MEDS: *HR* HYDROcodone/Acet 5/325 mg TABLET PO PRN ×3 (07:42→20:20)
[2016-11-08] MEDS: Metoprolol XL (24 HR) Succ 50 MG TAB.ER.24H PO SCH (08:01)
[2016-11-08] MEDS: predniSONE 10 MG TABLET PO SCH (08:02)
[2016-11-08] MEDS: Gabapentin 100 MG CAPSULE PO SCH ×4 (08:02→21:52)
--- NOTE | 2016-11-08 08:15 | Internal Med Progress Note ---
<Nirmal Ingram - Last Filed: 11/08/16 10:23> Date of Encounter: 11/08/16 Time of Encounter: 08:15 - Assessment and plan (1) Metastatic malignant neuroendocrine tumor to liver Current Visit: Yes Status: Acute Assessment and plan: 11/02/16 Liver, biopsy: Positive for carcinoma with neuroendocrine features Patient was scheduled for a PET scan prior to admission Multiple liver metastasis with hepatomegaly. Elevated liver enzymes and alkaline phosphatase This tumor is aggressive and behaving clinically like small cell carcinoma. Started palliative chemotherapy or oncology recommendations He is at high risk for tumor lysis syndrome. Potassium 4.7. Monitor phosphorus. Started Allopurinol 200 mg by mouth at bedtime Oncology following (2) Abdominal pain Current Visit: Yes Status: Acute Assessment and plan: Sharp abdominal pain localized to the right upper quadrant and epigastric region likely related to hepatic carcinoma CT abdomen and pelvis reveals Diffuse hepatic metastatic disease. Continue analgesics as needed. Qualifiers: Abdominal location: generalized Qualified Code(s): R10.84 - Generalized abdominal pain (3) Pneumonia Current Visit: Yes Status: Acute Assessment and plan: CT chest shows Right lower lobe infiltrate concerning for pneumonia. elevated WBC of 12.4 and a left shift Continue antibiotic coverage with cefepime and vancomycin (Day 2) Qualifiers: Pneumonia type: due to unspecified organism Laterality: right Lung location: lower lobe of lung Qualified Code(s): J18.1 - Lobar pneumonia, unspecified organism (4) Acute kidney injury Current Visit: Yes Status: Resolved Assessment and plan: Prerenal JEWEL secondary to dehydration. Continue IV fluids at 75 mL/h (5) COPD without exacerbation Current Visit: Yes Status: Chronic Assessment and plan: Patient wears baseline 2 L supplemental oxygen via nasal cannula at home Received Solu-Medrol and 25 mg IV in ED, Continue home prednisone 10 mg by mouth daily Continue cefepime and vancomycin (day 2) Continue duo nebs as scheduled (6) Hyperkalemia Current Visit: Yes Status: Acute Assessment and plan: Improved. He is at high risk for tumor lysis syndrome. Continue to monitor (7) Hypercalcemia Current Visit: Yes Status: Acute Assessment and plan: Corrected calcium is 11.2 We will hold patient's vitamin D and oral calcium with his hypercalcemia. Elevated calcium is likely related to his cancer (8) Lung nodules Current Visit: Yes Status: Acute Assessment and plan: CT chest revealed lower lobe infiltrate with masslike appearance which could be malignant infiltrate. He was evaluated by Dr. Butler and had a bronchoscopy around 02/08/2015. It showed benign-looking narrowing in the bronchus mainly left upper lobe. Biopsy of the left upper lobe area showed atypical squamous cells and biopsy showed dysplastic squamous cells. Thoracic surgery [facility] recommended conservative management with repeat CAT scan. Oncology following (9) Hypomagnesemia Current Visit: Yes Status: Acute Assessment and plan: Supplement magnesium. Continue to monitor (10) DVT prophylaxis Current Visit: Yes Status: Acute Assessment and plan: Lovenox Patient seen and examined, plan discussed with and agreed upon with Dr. Eric - Subjective Interval history: The resting comfortably in bed. He reports no abdominal pain and good appetite. He received first dose of the chemotherapy yesterday. Patient is in good spirits reports his girlfriend will arrive shortly. He requests not contacting his children at this time. Awaiting palliative care consultation. - Constitutional Vitals: Temp Pulse Resp BP Pulse Ox 97.3 F L 121 17 124/73 97 11/08/16 07:02 11/08/16 07:02 11/08/16 07:02 11/08/16 07:02 11/08/16 07:02 General appearance: Present: cachectic, cooperative, A&O X 3, pleasant, no acute distress, underweight, answers questions appropriately - Head Head exam: Present: atraumatic, normocephalic - Eye Eye exam: Present: PERRL, conjuntiva pink, sclera anicteric Pupils: Present: PERRL - ENT ENT exam: Present: mucous membranes moist, normal oropharynx - Neck Neck exam general surgery: Present: supple, trachea midline. Absent: lymphadenopathy - Respiratory Respiratory exam: Present: CTAB. Absent: accessory muscle use, rales, rhonchi, wheezes - Cardiovascular Cardiovascular exam: Present: RRR, +S1, +S2. Absent: diastolic murmur, gallop, rubs, systolic murmur - GI/Abdominal GI/Abdominal exam: Present: distended, firm, guarding, hepatomegaly, normal bowel sounds, tenderness, no peritoneal signs - Extremities Exam Extremities exam: Present: warm, radial pulses palpable and symetrical. Absent : calf tenderness, cyanotic, pedal edema - Neurological Exam Neurological exam: Present: CN II-XII intact, oriented X3, no focal deficits. Absent: pronater drift, facial droop, speech deficit - Psychiatric Psychiatric exam: Present: normal affect, normal mood - Skin Skin exam: Present: dry, intact, warm Internal Medicine: Result - Labs CBC & Chem 7: 11/08/16 09:19 11/08/16 09:19 Labs: Short CBC 11/08/16 Range/Units 04:51 WBC 13.2 H (4.3-11.1) K/mcL Hgb 10.9 L D (12.9-16.9) g/dL Hct 33.9 L (37.5-50.1) % Plt Count 302 (140-400) K/mcL Neutrophils # 10.6 H (1.6-8.9) K/mcL BMP 11/08/16 04:51 Sodium 138 Potassium 4.8 H D Chloride 104 Carbon Dioxide 28 BUN 21 D Creatinine 0.79 D Glucose 64 L Calcium 9.5 Liver Function 11/08/16 Range/Units 04:51 Total Bilirubin 2.0 H (0.2-1.2) mg/dL AST 244 H (5-34) Units/L ALT 135 H (0-55) Units/L Alkaline Phosphatase 574 H (38-126) Units/L Albumin 2.3 L (3.5-5.0) g/dL - ABG Interpretation ABG results: PT/INR, D-dimer PT 12.2 Seconds (9.4-12.1) H 11/06/16 18:06 Consult Discharge Plan - Plan [facility]errals: [facility] [Primary Care Provider[facility] - <Moses Eric P - Last Filed: 11/08/16 18:22> Date of Encounter: 11/08/16 - Constitutional Vitals: Temp Pulse Resp BP Pulse Ox 97.5 F L 92 13 115/70 97 11/08/16 16:25 11/08/16 16:25 11/08/16 16:25 11/08/16 16:25 11/08/16 16:25 Internal Medicine: Result - Labs CBC & Chem 7: 11/08/16 09:19 11/08/16 09:19 Labs: Short CBC 11/08/16 11/08/16 Range/Units 04:51 09:19 WBC 13.2 H 12.4 H (4.3-11.1) K/mcL Hgb 10.9 L D 11.8 L (12.9-16.9) g/dL Hct 33.9 L 36.7 L (37.5-50.1) % Plt Count 302 297 (140-400) K/mcL Neutrophils # 10.6 H 10.3 H (1.6-8.9) K/mcL BMP 11/08/16 11/08/16 04:51 09:19 Sodium 138 136 Potassium 4.8 H D 4.7 H Chloride 104 104 Carbon Dioxide 28 24 BUN 21 D 22 Creatinine 0.79 D 0.86 Glucose 64 L 82 Calcium 9.5 9.8 Liver Function 11/08/16 11/08/16 Range/Units 04:51 09:19 Total Bilirubin 2.0 H 2.2 H (0.2-1.2) mg/dL AST 244 H 246 H (5-34) Units/L ALT 135 H 141 H (0-55) Units/L Alkaline Phosphatase 574 H 596 H (38-126) Units/L Albumin 2.3 L 2.3 L (3.5-5.0) g/dL - ABG Interpretation ABG results: PT/INR, D-dimer PT 12.2 Seconds (9.4-12.1) H 11/06/16 18:06 - Attending Attestation I examined this patient and my medical decision-making was reviewed with the Resident Physician. I agree with the documented findings, disposition and treatment plan as described except to the extent set forth below. oncology input appreciated.
[2016-11-08] MEDS ORDERED: SODIUM CHLORIDE 0.9% IVPB ONE (08:35)
[2016-11-08] MEDS ORDERED: RASBURICASE IVPB ONE (08:35)
[2016-11-08 08:41] LABS: Uric Acid 8.4 mg/dL (3.5-7.2)
[2016-11-08 08:45] LABS: Lactate Dehydrogenase > 3325 Units/L (159-327)
[2016-11-08 09:42] LABS: Basophils % 0.1 %; Eosinophils # 0.1 K/mcL (0.0-0.6); Eosinophils % 0.6 %; Hematocrit 36.7 % (37.5-50.1); Hemoglobin 11.8 g/dL (12.9-16.9); Immature Granulocytes % 0.4 % (0-4); Lymphocytes # 0.9 K/mcL (0.6-4.6); Lymphocytes % 7.2 %; Mean Corpuscular HGB Conc 32.2 g/dL (31.6-35.5); Mean Corpuscular Hemoglobin 30.3 pg (28.0-33.3); Mean Corpuscular Volume 94.1 fL (83.0-100.0); Mean Platelet Volume 9.6 fL (9.4-12.4); Monocytes # 1.1 K/mcL (0.0-1.3); Monocytes % 8.7 %; Neutrophils # 10.3 K/mcL (1.6-8.9); Platelet Count 297 K/mcL (140-400); Red Cell Distribution Width 16.4 % (11.5-14.5)
[2016-11-08 09:58] LABS: Alanine Aminotransferase 141 Units/L (0-55); Albumin 2.3 g/dL (3.5-5.0); Alkaline Phosphatase 596 Units/L (38-126); Aspartate Amino Transferase 246 Units/L (5-34); BUN/Creatinine Ratio 26 (6-26); Bilirubin,Total 2.2 mg/dL (0.2-1.2); Blood Urea Nitrogen 22 mg/dL (8-26); Calcium 9.8 mg/dL (8.6-10.8); Carbon Dioxide 24 mEq/L (19-29); Chloride 104 mEq/L (98-109); Glucose 82 mg/dL (70-99); Magnesium 1.3 mg/dL (1.6-2.6); Osmolality,Calculated 284 (280-300); Potassium 4.7 mEq/L (3.5-4.5); Sodium 136 mEq/L (136-145); Total Protein 6.2 g/dL (6.0-8.3); eGFR For African Americans > 60 (> 60); eGFR For Non-African Americans > 60 (> 60)
[2016-11-08 09:59] LABS: Albumin/Globulin Ratio 0.6 (1.1-2.2); Globulin 3.9 g/dL (2.4-3.5)
[2016-11-08] MEDS ORDERED: Vancomycin 1,000 MG in D5% in Water 250 ML IVPB ONE (10:20)
[2016-11-08] MEDS ORDERED: Magnesium Sulfate 2 GM in D5% in Water 100 ML IVPB ONE (10:24)
[2016-11-08] MEDS: Budesonide/Formoterol 160/4.5 MDI IH SCH ×2 (10:43→22:33)
[2016-11-08] MEDS: Tiotropium 18 MCG inhalation IH SCH (10:45)
[2016-11-08] MEDS ORDERED: 0.9 % Sodium Chloride 1,000 ML IVC SCH ×2 (10:45→11:15)
--- NOTE | 2016-11-08 11:40 | Palliative - Consult Note ---
Date of Encounter: 11/08/16 Time of Encounter: 11:30 - Assessment and Plan (1) Cancer associated pain Current Visit: Yes Status: Acute Assessment and plan: Currently utilizing [place], and he has been using at home prior to admission as well. Utilized x4 last 24 hours. States this has been effective and he is satisfied with his pain control at this time. Monitor (2) Nausea & vomiting Current Visit: Yes Status: Acute Assessment and plan: Has improved since admission - has not required antiemetics. Was NPO until yesterday afternoon, and now has been tolerating diet. Eating approx 50% of meals. MOnitor - Coin Teller in following and will be adding supplement Qualifiers: Vomiting type: unspecified Vomiting Intractability: unspecified Qualified Code(s): R11.2 - Nausea with vomiting, unspecified (3) Counseling regarding advanced care planning and goals of care Current Visit: Yes Status: Acute Assessment and plan: Met with pt and S/O Joana. Patient has already completed advanced directives through the [place] and these are on his record. Joana is the durable power of criminal defense attorney for healthcare. Patient states his goal is to pursue chemotherapy in hopes of slowing cancer down and spend quality time with Joana . He understands that his cancer is not curable. Discussed code status - pt will be discussing with Joana and will re-visit tomorrow after they have had some time to process information. (4) Metastatic malignant neuroendocrine tumor to liver Current Visit: Yes Status: Acute Palliative-CN HPI - Data of Consult Consult date: 11/08/16 Requesting Physician: Moses Eric MD Primary Care Provider: PCP [place] - Consult Narrative History of present illness: Mr. Vega is a 66 year old male who was admitted with abd pain, nausea, and increasing weakness/decreased intake at home. He was recently diagnosed with neuroendocrine cancer by liver biopsy last week. Has history of lung nodules that has been monitored since 2015. [facility] and has 60% service connected disability. Oncology (Dr. Su) saw pt yesterday for follow up with biopsy results and informed pt of diagnosis and treatment options. Patient elected to begin chemotherapy here, and he will be monitored closely as he is high risk for tumor lysis syndrome. He had electrolyte abnormalities upon admission with hyperkalemia, and JEWEL. These are improving with treatment. He has h/o COPD and is on home oxygen[facility]bs [facility]. At the time of my visit, he is very pleasant, awake and oriented. Joana, his significant other/HCPOA) is at bedside. He appears in no distress - drinking coffee. States he feels much better than on admission, and pain and nausea are decreased from time of arrival. CC: Moses Eric MD Past Med Surg Social Fam HX - Past Medical History Medical history: COPD, hyperlipidemia, hypertension Psychiatric history: no psych history - Social History Smoking Status: Former smoker Smokeless Tobacco Status: Yes Alcohol use: none Drug use: none - Family History Mother Living Status: Age at : 75 Medications and Allergies Multivitamin [Multi-Day Vitamins] 1 each PO DAILY 03/22/15 [History] Omeprazole [PriLOSEC] 20 mg PO BIDAC 03/22/15 [History] Quetiapine Fumarate [Seroquel Xr] 150 mg PO HS 03/22/15 [History] Alendronate Sodium [Fosamax] 70 mg PO QWEEK 10/30/16 [History] Calcium Carbonate [Calcium] 600 mg PO DAILY 10/30/16 [History] Cholecalciferol (Vitamin D3) [Vitamin D] 2,000 unit PO DAILY 10/30/16 [History] Dicyclomine [Bentyl] 20 mg PO QID 10/30/16 [History] HYDROcodone/Acet 5/325 mg [[place] 5-325 mg] 1.5 tab PO TID PRN 10/30/16 [History] Lisinopril [Zestril] 20 mg PO DAILY 10/30/16 [History] Loratadine [Claritin] 10 mg PO DAILY 10/30/16 [History] Magnesium Oxide [Magnesium] 400 mg PO DAILY 10/30/16 [History] Metoprolol Succinate 50 mg PO DAILY 10/30/16 [History] Montelukast [Singulair] 10 mg PO DAILY 10/30/16 [History] Ondansetron HCl 8 mg PO TID PRN 10/30/16 [History] Pravastatin Sodium [Pravachol] 20 mg PO DAILY 10/30/16 [History] Theophylline Anhydrous [Henri-24] 100 mg PO DAILY 10/30/16 [History] Vitamin E 400 unit PO TID 10/30/16 [History] predniSONE [PredniSONE] 10 mg PO DAILY 10/30/16 [History] Doxycycline 100 mg PO BID #20 capsule 11/01/16 [Rx] Amoxicillin/Clavulanate [Augmentin] 875 mg PO BIDWM 11/06/16 [History] Apoaequorin 10 mg PO DAILY 11/06/16 [History] Budesonide/Formoterol 160/4.5 [Symbicort 160/4.5] 2 puff IH BIDR 11/06/16 [ History] Gabapentin [Neurontin] 500 mg PO QID 11/06/16 [History] GuaiFENesin/Dextromethorphan [Tussin Dm Syrup] 10 ml PO Q4H PRN 11/06/16 [ History] Guaifenesin [Tab Tussin] 400 mg PO Q12H PRN 11/06/16 [History] Lactose-Reduced Food [Ensure Plus] 1 - 2 bottle PO BID 11/06/16 [History] Levalbuterol Neb [Xopenex Neb] 1 vial IH Q6H PRN 11/06/16 [History] Levalbuterol [Xopenex INH] 2 puff IH Q6H PRN 11/06/16 [History] Lidocaine 4% CRM (LMX) [Lmx 4] 1 appl TP BID 11/06/16 [History] Nicotine Polacrilex [Nicotine Lozenge] 2 mg BC BID PRN 11/06/16 [History] Potassium Gluconate [Potassium] 400 mg PO DAILY 11/06/16 [History] Tiotropium [Spiriva] 1 puff IH QAM 11/06/16 [History] Allergies ampicillin Allergy (Verified 11/06/16 19:02) Hives rosuvastatin [From Crestor] Adverse Reaction (Verified 11/06/16 19:02) Diarrhea Cqwzkzp-Nuw-Urf Reductase Inhibitor [Statins] Adverse Reaction (Verified 19:02) Diarrhea All systems: reviewed and no additional remarkable complaints except as stated ( RLQ tenderness, shortness of breath with exertion, occasional nausea, generalized weakness) Palliative Care-Exam - Constitutional Vitals: Temp Pulse Resp BP Pulse Ox 97.5 F L 96 18 108/72 98 11/08/16 10:34 11/08/16 10:34 11/08/16 10:42 11/08/16 10:34 11/08/16 10:42 General appearance: Present: thin - Head Head Exam: Present: normal inspection - Expanded Respiratory Exam Location: rales: Left, Right, Lower - Cardiovascular Cardiovascular exam: Present: +S1, +S2 - GI/Abdominal Exam GI/Abdominal exam: Present: normal bowel sounds, soft additional comments: tenderness to palpation RLQ - Extremities Exam Extremities exam: Present: normal capillary refill, normal inspection - Neurological Exam Neurological exam: Present: alert, oriented X3, strengths equal and symetr throughout - Skin Skin exam: Present: dry, pallor Internal Medicine - CN: Reslt - Labs CBC & Chem 7: 11/08/16 09:19 11/08/16 09:19 Labs: Short CBC 11/08/16 11/08/16 Range/Units 04:51 09:19 WBC 13.2 H 12.4 H (4.3-11.1) K/mcL Hgb 10.9 L D 11.8 L (12.9-16.9) g/dL Hct 33.9 L 36.7 L (37.5-50.1) % Plt Count 302 297 (140-400) K/mcL Neutrophils # 10.6 H 10.3 H (1.6-8.9) K/mcL BMP 11/08/16 11/08/16 04:51 09:19 Sodium 138 136 Potassium 4.8 H D 4.7 H Chloride 104 104 Carbon Dioxide 28 24 BUN 21 D 22 Creatinine 0.79 D 0.86 Glucose 64 L 82 Calcium 9.5 9.8 Liver Function 11/08/16 11/08/16 Range/Units 04:51 09:19 Total Bilirubin 2.0 H 2.2 H (0.2-1.2) mg/dL AST 244 H 246 H (5-34) Units/L ALT 135 H 141 H (0-55) Units/L Alkaline Phosphatase 574 H 596 H (38-126) Units/L Albumin 2.3 L 2.3 L (3.5-5.0) g/dL - ABG Interpretation ABG results: PT/INR, D-dimer PT 12.2 Seconds (9.4-12.1) H 11/06/16 18:06 Consult Discharge Plan - Plan [facility]errals: [facility] [Primary Care Provider[facility] - Palliative Quality Palliative Quality: Screen for Code Status: Yes, Screen for Goals of Care: Yes, Screen for Pain: Yes, If Pain Regimen Started, Initiate Bowel Regimen: NA ( Kayexelate inducing diarrhea), Screen for Nausea/Vomitting: Yes
[2016-11-08] MEDS ORDERED: Vancomycin 750 MG in D5% in Water 250 ML IVPB ONE (11:56)
--- NOTE | 2016-11-08 18:08 | Oncology Inp Progress Note ---
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 Elevated liver enzymes and alkaline phosphatase Renal function normalized with hydration and we will continue that Cycle 1 chemotherapy with cisplatin and etoposide as mentioned. Prophylactic rasburicase to minimize tumor lysis Continue Allopurinol 200 mg by mouth at bedtime. A long discussion with the patient. Without chemotherapy his prognosis is poor -matter a few weeks. He understands chemotherapy has side effects especially with elevated liver enzymes. But options are very limited. He also understands the risk of tumor lysis which could be fatal as well. He is agreeable to proceed with chemotherapy. We will watch him closely 2. Lower extremity edema 1+. Can reduce maintenance normal saline to 75 mL per hour from 125 mL per hour. Lasix when necessary Oncology: Subj Interval history: Renal function normalized with hydration. Current creatinine around 0.89 and chemotherapy change to following Cisplatin 50 mg/m IV day 1 Etoposide 50 mg/m day one and 2. From cycle 2 would increase cisplatin to 60 mg/m and Etoposide to 60 mg/m day 1-3 2. Uric acid elevated at 8 and LDH more than 3300. Because of high risk of tumor lysis syndrome 1 dose of rasburicase 6 mg IV given prior to chemotherapy Continue to follow phosphorus and uric acid 3. Continue IV hydration 4. Had elevation of liver enzymes. Bilirubin total 2.2 . Alkaline phosphatase phosphatase elevated at 500. - Constitutional Vitals: Vital Signs Temp Pulse Resp BP Pulse Ox 11/08/16 16:25 97.5 F L 92 13 115/70 97 11/08/16 16:10 18 98 11/08/16 10:42 18 98 11/08/16 10:34 97.5 F L 96 18 108/72 97 11/08/16 08:34 97 11/08/16 07:02 97.3 F L 121 17 124/73 97 11/08/16 05:14 98 F 115 15 106/68 96 11/08/16 04:21 16 110/68 96 11/08/16 00:05 98.2 F 104 16 110/68 96 11/07/16 22:50 16 110/68 97 11/07/16 20:40 98 F 99 17 146/79 98 Intake and Output 07/27/17 07/27/17 07/27/17 07:59 15:59 23:59 Intake Total 1614 / 1614 120 / 120 Balance 1614 / 1614 120 / 120 Intake: IV Fluids 1254 / 1254 Emend 150 mg In 0.9 % 250 / 250 Sodium Chloride 250 ML @ 500 mls/hr IV ONCE GIFTY Rx #:[id number] 0.9 % Sodium Chloride 1, 750 / 750 000 ML @ 125 mls/hr IVC . Q8H GIFTY Rx#:[id number] Maxipime 2,000 MG In 100 / 100 Dextrose 5% (Minibag+) 100 ML 100 ML @ 200 mls/ hr IVPB Q12HR GIFTY Rx#: [id number] Magnesium Sulfate 2 GM In 104 / 104 Dextrose 5% 100 ML @ 100 mls/hr IVPB ONCE ONE Rx# :[id number] Elitek 6 MG In 0.9 % 50 / 50 Sodium Chloride 50 ML @ 100 mls/hr IVPB ONCE ONE Rx#:[id number] Oral 360 / 360 120 / 120 Other: Meal Breakfast Dinner Percent of Meal Consumed 50% 40% Stool Size Large Stool Consistency loose Stool Color Brown Green # Bowel Movements 1 Weight 57.652 kg Patient Weight 11/08/16 23:59 Weight 57.652 kg Exam: GENERAL: Alert and oriented, distress with abdominal pain Mental Status: Affect appropriate for circumstances HEENT: Sclerae anicteric. No mucositis or thrush. No other oral or pharyngeal lesions or erythema. Skin: No rashes or petechiae. No evidence of skin malignancy Lymph nodes: No cervical, supraclavicular, axillary, or inguinal adenopathy. Lungs: Air entry normal with normal breath sounds. No rhonchi or wheezing Cardiovascular: Regular rate and rhythm. No skipped beats Abdomen: Soft, mild ascites. Tender hepatomegaly. Bowel sounds active. Extremities: 1+ edema. No calf swelling or tenderness. No joint deformity. Neurologic: Alert, cranial nerves II-XII intact; normal gait; no focal weakness or sensory abnormalities Oncology: Obj Data - Labs CBC & Chem 7: 11/09/16 02:41 11/09/16 02:41 Labs: Laboratory Results - last 24 hr 11/08/16 11/08/16 11/08/16 04:51 04:51 04:51 WBC 13.2 H RBC 3.70 L Hgb 10.9 L D Hct 33.9 L MCV 91.6 MCH 29.5 MCHC 32.2 RDW 16.2 H Plt Count 302 MPV 10.0 Immature Gran % 0.7 Seg Neutrophils % 80.0 Lymphocytes % 10.0 Monocytes % 9.0 Eosinophils % 0.2 Basophils % 0.1 Neutrophils # 10.6 H Lymphocytes # 1.3 Monocytes # 1.2 Eosinophils # 0.0 Basophils # 0.0 Sodium 138 Potassium 4.8 H D Chloride 104 Carbon Dioxide 28 BUN 21 D Creatinine 0.79 D Est GFR ( Amer) > 60 Est GFR (Non-Af Amer) > 60 BUN/Creatinine Ratio 27 H Glucose 64 L Calculated Osmolality 287 Uric Acid 8.4 H Calcium 9.5 Magnesium Total Bilirubin 2.0 H AST 244 H ALT 135 H Alkaline Phosphatase 574 H Lactate Dehydrogenase > 3325 H Serum Total Protein 5.8 L Albumin 2.3 L Globulin 3.5 Albumin/Globulin Ratio 0.7 L Random Vancomycin 12.2 11/08/16 11/08/16 09:19 09:19 WBC 12.4 H RBC 3.90 L Hgb 11.8 L Hct 36.7 L MCV 94.1 MCH 30.3 MCHC 32.2 RDW 16.4 H Plt Count 297 MPV 9.6 Immature Gran % 0.4 Seg Neutrophils % 83.0 Lymphocytes % 7.2 Monocytes % 8.7 Eosinophils % 0.6 Basophils % 0.1 Neutrophils # 10.3 H Lymphocytes # 0.9 Monocytes # 1.1 Eosinophils # 0.1 Basophils # 0.0 Sodium 136 Potassium 4.7 H Chloride 104 Carbon Dioxide 24 BUN 22 Creatinine 0.86 Est GFR ( Amer) > 60 Est GFR (Non-Af Amer) > 60 BUN/Creatinine Ratio 26 Glucose 82 Calculated Osmolality 284 Uric Acid Calcium 9.8 Magnesium 1.3 L Total Bilirubin 2.2 H AST 246 H ALT 141 H Alkaline Phosphatase 596 H Lactate Dehydrogenase Serum Total Protein 6.2 Albumin 2.3 L Globulin 3.9 H Albumin/Globulin Ratio 0.6 L Random Vancomycin - ABG Interpretation ABG results: PT/INR, D-dimer PT 12.2 Seconds (9.4-12.1) H 11/06/16 18:06 Consult Discharge Plan - Plan [facility]: [facility] [Primary Care Provider] -
[2016-11-09] MEDS ORDERED: Prochlorperazine 10 MG/2 ML VIAL IV PRN
[2016-11-09] MEDS ORDERED: 0.9 % Sodium Chloride 500 ML IVC SCH
[2016-11-09] MEDS ORDERED: Famotidine 20 MG/2 ML VIAL IV PRN
[2016-11-09] MEDS ORDERED: Dexamethasone 10 MG/ML VIAL IV PRN
[2016-11-09] MEDS ORDERED: *HR* LORazepam 2 MG/ML VIAL IV PRN
[2016-11-09 04:19] LABS: Hematocrit 33.5 % (37.5-50.1); Hemoglobin 10.8 g/dL (12.9-16.9); Immature Granulocytes % 0.8 % (0-4); Lymphocytes # 0.2 K/mcL (0.6-4.6); Lymphocytes % 2.7 %; Mean Corpuscular HGB Conc 32.2 g/dL (31.6-35.5); Mean Corpuscular Hemoglobin 30.1 pg (28.0-33.3); Mean Corpuscular Volume 93.3 fL (83.0-100.0); Mean Platelet Volume 10.2 fL (9.4-12.4); Monocytes # 0.3 K/mcL (0.0-1.3); Monocytes % 3.6 %; Neutrophils # 7.1 K/mcL (1.6-8.9); Platelet Count 268 K/mcL (140-400); Red Blood Count 3.59 M/mcL (4.19-5.50); Red Cell Distribution Width 16.2 % (11.5-14.5); Segmented Neutrophils % 92.9 %
[2016-11-09] MEDS: Ipratropium/Albuterol Neb 3 ML IH PRN ×4 (04:29→22:44)
[2016-11-09] MEDS: Levalbuterol 1 PUFF INHALER IH SCH ×4 (04:31→23:28)
[2016-11-09 04:43] LABS: Alanine Aminotransferase 161 Units/L (0-55); Albumin 2.3 g/dL (3.5-5.0); Albumin/Globulin Ratio 0.6 (1.1-2.2); Alkaline Phosphatase 584 Units/L (38-126); Aspartate Amino Transferase 250 Units/L (5-34); BUN/Creatinine Ratio 20 (6-26); Bilirubin,Total 2.1 mg/dL (0.2-1.2); Blood Urea Nitrogen 16 mg/dL (8-26); Carbon Dioxide 21 mEq/L (19-29); Chloride 104 mEq/L (98-109); Globulin 3.6 g/dL (2.4-3.5); Glucose 104 mg/dL (70-99); Magnesium 1.8 mg/dL (1.6-2.6); Osmolality,Calculated 287 (280-300); Phosphorous 2.2 mg/dL (2.3-4.7); Potassium 4.6 mEq/L (3.5-4.5); Sodium 138 mEq/L (136-145); Total Protein 5.9 g/dL (6.0-8.3); eGFR For African Americans > 60 (> 60); eGFR For Non-African Americans > 60 (> 60)
[2016-11-09] MEDS: 0.9 % Sodium Chloride 1,000 ML IVC SCH ×2 (04:44→23:03)
[2016-11-09] MEDS: *HR* Enoxaparin 40 MG/0.4 ML SYRINGE SQ SCH (06:08)
[2016-11-09] MEDS: Cefepime HCl 2,000 MG in D5% in Water (Mini-Bag+) 100 ML IVPB SCH ×2 (06:09→18:04)
[2016-11-09] MEDS: *HR* HYDROcodone/Acet 5/325 mg TABLET PO PRN ×3 (06:33→20:37)
[2016-11-09] MEDS ORDERED: Vancomycin 1,000 MG in D5% in Water 250 ML IVPB SCH (08:00)
[2016-11-09] MEDS: Gabapentin 100 MG CAPSULE PO SCH ×4 (08:22→20:24)
[2016-11-09] MEDS: Metoprolol XL (24 HR) Succ 50 MG TAB.ER.24H PO SCH (08:23)
[2016-11-09] MEDS: predniSONE 10 MG TABLET PO SCH (08:23)
[2016-11-09] MEDS: Lidocaine 4% CREAM (LMX) 5 GM TP SCH ×2 (08:24→20:25)
--- NOTE | 2016-11-09 09:15 | Internal Med Progress Note ---
Addendum entered and electronically signed by Nirmal Ingram DO 11/09/16 14:39: Updated Assessment and plan (1) Severe sepsis Current Visit: Yes Status: Acute Assessment and plan: Severe sepsis secondary to pneumonia present on admission. Met Severe sepsis criteria with tachycardia heart rate 129, tachypnea RR 24, white blood count 19.2, right lower lobe pneumonia source of infection, Lactic acidosis 2.7, which has resolved. Blood cultures show no growth. Continue IV fluids and antibiotics. Continue to monitor closely. Original Note: <Nirmal Ingram - Last Filed: 11/09/16 10:37> Date of Encounter: 11/09/16 Time of Encounter: 09:15 - Assessment and plan (1) Metastatic malignant neuroendocrine tumor to liver Current Visit: Yes Status: Acute Assessment and plan: 11/02/16 Liver, biopsy: Positive for carcinoma with neuroendocrine features, This tumor is aggressive and behaving clinically like small cell carcinoma. Patient was scheduled for a PET scan prior to admission Multiple liver metastasis with hepatomegaly. Elevated liver enzymes and alkaline phosphatase Started palliative chemotherapy per oncology recommendations He is at high risk for tumor lysis syndrome. Potassium 4.6. Monitor phosphorus. Continue Allopurinol 200 mg by mouth at bedtime Oncology following Palliative care following (2) Abdominal pain Current Visit: Yes Status: Acute Assessment and plan: Sharp abdominal pain localized to the right upper quadrant and epigastric region likely related to hepatic carcinoma CT abdomen and pelvis reveals Diffuse hepatic metastatic disease. Continue analgesics as needed. Palliative care following Qualifiers: Abdominal location: generalized Qualified Code(s): R10.84 - Generalized abdominal pain (3) Pneumonia Current Visit: Yes Status: Acute Assessment and plan: CT chest shows Right lower lobe infiltrate concerning for pneumonia. Leukocytosis resolved Continue antibiotic coverage with cefepime and vancomycin (Day 3) Qualifiers: Pneumonia type: due to unspecified organism Laterality: right Lung location: lower lobe of lung Qualified Code(s): J18.1 - Lobar pneumonia, unspecified organism (4) Acute kidney injury Current Visit: Yes Status: Resolved Assessment and plan: Prerenal JEWEL secondary to dehydration. Continue IV fluids at 75 mL/h Patient has high-risk for tumor lysis syndrome. Continue to monitor (5) COPD without exacerbation Current Visit: Yes Status: Chronic Assessment and plan: Patient wears baseline 2 L supplemental oxygen via nasal cannula at home Received Solu-Medrol and 25 mg IV in ED, Continue home prednisone 10 mg by mouth daily Continue cefepime and vancomycin (day 3) Continue duo nebs as scheduled (6) Lung nodules Current Visit: Yes Status: Acute Assessment and plan: CT chest revealed lower lobe infiltrate with masslike appearance which could be malignant infiltrate. He was evaluated by Dr. Butler and had a bronchoscopy around 02/08/2015. It showed benign-looking narrowing in the bronchus mainly left upper lobe. Biopsy of the left upper lobe area showed atypical squamous cells and biopsy showed dysplastic squamous cells. Thoracic surgery [facility] recommended conservative management with repeat CAT scan. Continued chemotherapy as above Oncology following (7) Hyperkalemia Current Visit: Yes Status: Acute (8) Hypercalcemia Current Visit: Yes Status: Acute (9) Hypomagnesemia Current Visit: Yes Status: Resolved Assessment and plan: Continue to monitor (10) Tumor-induced hypophosphatemia Current Visit: Yes Status: Acute Assessment and plan: Continue to monitor, patient is high risk for tumor lysis syndrome (11) DVT prophylaxis Current Visit: Yes Status: Acute Assessment and plan: Lovenox Patient seen and examined, plan discussed with and agreed upon with Dr. Eric - Subjective Interval history: The resting comfortably in bed. He reports palpitations, weakness, and fatigue. Patient is in good spirits reports his girlfriend will arrive this afternoon. Oncology and palliative care following. - Constitutional Vitals: Temp Pulse Resp BP Pulse Ox 97.8 F 107 16 117/69 95 11/09/16 07:49 11/09/16 07:49 11/09/16 07:49 11/09/16 07:49 11/09/16 07:49 General appearance: Present: cachectic, cooperative, disheveled, A&O X 3, pleasant, no acute distress, underweight, answers questions appropriately - Head Head exam: Present: atraumatic, normocephalic - Eye Eye exam: Present: PERRL, conjuntiva pink, sclera anicteric Pupils: Present: PERRL - ENT ENT exam: Present: mucous membranes moist, normal oropharynx - Neck Neck exam general surgery: Present: supple, trachea midline. Absent: lymphadenopathy - Respiratory Respiratory exam: Present: CTAB. Absent: accessory muscle use, rales, rhonchi, wheezes - Cardiovascular Cardiovascular exam: Present: +S1, +S2, tachycardia. Absent: diastolic murmur, gallop, rubs, systolic murmur - GI/Abdominal GI/Abdominal exam: Present: firm, guarding (Involuntary), hepatomegaly, normal bowel sounds, tenderness (Right upper quadrant, right lower quadrant, left upper border), no peritoneal signs. Absent: distended - Extremities Exam Extremities exam: Present: warm, radial pulses palpable and symetrical. Absent : calf tenderness, cyanotic, pedal edema - Neurological Exam Neurological exam: Present: CN II-XII intact, oriented X3, no focal deficits. Absent: pronater drift, facial droop, speech deficit - Psychiatric Psychiatric exam: Present: normal affect, normal mood - Skin Skin exam: Present: dry, intact, warm Internal Medicine: Result - Labs CBC & Chem 7: 11/09/16 02:41 11/09/16 02:41 Labs: Short CBC 11/08/16 11/09/16 Range/Units 09:19 02:41 WBC 12.4 H 7.7 (4.3-11.1) K/mcL Hgb 11.8 L 10.8 L (12.9-16.9) g/dL Hct 36.7 L 33.5 L (37.5-50.1) % Plt Count 297 268 (140-400) K/mcL Neutrophils # 10.3 H 7.1 (1.6-8.9) K/mcL BMP 11/08/16 11/09/16 09:19 02:41 Sodium 136 138 Potassium 4.7 H 4.6 H Chloride 104 104 Carbon Dioxide 24 21 BUN 22 16 Creatinine 0.86 0.79 Glucose 82 104 H Calcium 9.8 9.0 Liver Function 11/08/16 11/09/16 Range/Units 09:19 02:41 Total Bilirubin 2.2 H 2.1 H (0.2-1.2) mg/dL AST 246 H 250 H (5-34) Units/L ALT 141 H 161 H (0-55) Units/L Alkaline Phosphatase 596 H 584 H (38-126) Units/L Albumin 2.3 L 2.3 L (3.5-5.0) g/dL - ABG Interpretation ABG results: PT/INR, D-dimer PT 12.2 Seconds (9.4-12.1) H 11/06/16 18:06 - EKG Interpretation EKG Interpreted by Myself: Yes (Sinus tachycardia, heart rate 122) EKG shows normal: sinus rhythm Rate: tachycardia - Prior EKG Data Prior EKG available for review: yes When compared to previous EKG: there are significant changes, there is no significant change Consult Discharge Plan - Plan [facility]errals: [facility] [Primary Care Provider] - <[facility] Eric P - Last Filed: 11/09/16 17:28> Date of Encounter: 11/09/16 - Constitutional Vitals: Temp Pulse Resp BP Pulse Ox 97.7 F 106 18 134/84 95 11/09/16 15:51 11/09/16 15:51 11/09/16 16:25 11/09/16 15:51 11/09/16 16:25 Internal Medicine: Result - Labs CBC & Chem 7: 11/09/16 02:41 11/09/16 02:41 Labs: Short CBC 11/09/16 Range/Units 02:41 WBC 7.7 (4.3-11.1) K/mcL Hgb 10.8 L (12.9-16.9) g/dL Hct 33.5 L (37.5-50.1) % Plt Count 268 (140-400) K/mcL Neutrophils # 7.1 (1.6-8.9) K/mcL BMP 11/09/16 02:41 Sodium 138 Potassium 4.6 H Chloride 104 Carbon Dioxide 21 BUN 16 Creatinine 0.79 Glucose 104 H Calcium 9.0 Liver Function 11/09/16 Range/Units 02:41 Total Bilirubin 2.1 H (0.2-1.2) mg/dL AST 250 H (5-34) Units/L ALT 161 H (0-55) Units/L Alkaline Phosphatase 584 H (38-126) Units/L Albumin 2.3 L (3.5-5.0) g/dL - ABG Interpretation ABG results: PT/INR, D-dimer PT 12.2 Seconds (9.4-12.1) H 11/06/16 18:06 - Attending Attestation I examined this patient and my medical decision-making was reviewed with the Resident Physician. I agree with the documented findings, disposition and treatment plan as described except to the extent set forth below.
[2016-11-09] MEDS: Budesonide/Formoterol 160/4.5 MDI IH SCH ×2 (10:59→22:44)
[2016-11-09] MEDS: Tiotropium 18 MCG inhalation IH SCH (11:00)
--- NOTE | 2016-11-09 11:41 | Palliative Progress Note ---
Date of Encounter: 11/09/16 Time of Encounter: 10:00 - Assessment and plan (1) Cancer associated pain Current Visit: Yes Status: Acute Assessment and plan: Continue Levering - has utilized x4 last 24 hours. (2) Nausea & vomiting Current Visit: Yes Status: Acute Assessment and plan: Continue antiemetics - monitor intake Qualifiers: Vomiting type: unspecified Vomiting Intractability: unspecified Qualified Code(s): R11.2 - Nausea with vomiting, unspecified (3) Counseling regarding advanced care planning and goals of care Current Visit: Yes Status: Acute Assessment and plan: Patient unable to stay awake at present regarding goals of care discussion. Unable to discuss code status at this time. Will f/u later this afternoon after girlfriend arrives and see if he feels better to discuss. (4) Metastatic malignant neuroendocrine tumor to liver Current Visit: Yes Status: Acute - Time Spent With Patient Total time spent is greater than 50% in coordination of care (as documented) at patient's floor/unit and/or counseling patient: 25 - 35 minutes - Subjective Interval history: Chemo began yesterday. Patient states feels poorly today. C/o weakness and tiredness. No visitors present. Patient states pain is still under good control. - Constitutional Vitals: Abnormal lab results RBC 3.59 M/mcL (4.19-5.50) L 11/09/16 02:41 Hgb 10.8 g/dL (12.9-16.9) L 11/09/16 02:41 Hct 33.5 % (37.5-50.1) L 11/09/16 02:41 RDW 16.2 % (11.5-14.5) H 11/09/16 02:41 Lymphocytes # 0.2 K/mcL (0.6-4.6) L 11/09/16 02:41 PT 12.2 Seconds (9.4-12.1) H 11/06/16 18:06 Potassium 4.6 mEq/L (3.5-4.5) H 11/09/16 02:41 Glucose 104 mg/dL (70-99) H 11/09/16 02:41 Uric Acid < 1.0 mg/dL (3.5-7.2) L D 11/09/16 02:41 Phosphorus 2.2 mg/dL (2.3-4.7) L 11/09/16 02:41 Total Bilirubin 2.1 mg/dL (0.2-1.2) H 11/09/16 02:41 Direct Bilirubin 1.4 mg/dL (0.0-0.5) H 11/06/16 17:15 AST 250 Units/L (5-34) H 11/09/16 02:41 ALT 161 Units/L (0-55) H 11/09/16 02:41 Alkaline Phosphatase 584 Units/L (38-126) H 11/09/16 02:41 Lactate Dehydrogenase > 3325 Units/L (159-327) H 11/08/16 04:51 Creatine Kinase 468 Units/L (30-200) H 11/06/16 18:06 Serum Total Protein 5.9 g/dL (6.0-8.3) L 11/09/16 02:41 Albumin 2.3 g/dL (3.5-5.0) L 11/09/16 02:41 Globulin 3.6 g/dL (2.4-3.5) H 11/09/16 02:41 Albumin/Globulin Ratio 0.6 (1.1-2.2) L 11/09/16 02:41 Urine Protein 30 mg/dL (Neg-Trace) H 11/07/16 00:22 Urine Ketones 15 mg/dL (Negative) H 11/07/16 00:22 General appearance: Present: no acute distress - Respiratory Additional comments: Crackles bilaterally lower lobes. - Cardiovascular Cardiovascular exam: Present: +S1, +S2 - GI/Abdominal GI/Abdominal exam: Present: normal bowel sounds, tenderness Additional comments: Tenderness RLQ with palpation - Extremities Exam Extremities exam: Present: normal capillary refill, normal inspection - Neurological Exam Neurological exam: Present: oriented X3, strengths equal and symetr throughout Additional comments: Drowsy - difficulty staying awake during conversation - Skin Skin exam: Present: dry, pallor, warm Palliative Quality Palliative Quality: Screen for Code Status: Yes, Screen for Goals of Care: Yes, Screen for Pain: Yes, If Pain Regimen Started, Initiate Bowel Regimen: NA ( Kayexelate inducing diarrhea), Screen for Nausea/Vomitting: Yes - Labs CBC & Chem 7: 11/09/16 02:41 11/09/16 02:41 Labs: Laboratory Results - last 24 hr 11/09/16 11/09/16 11/09/16 02:41 02:41 02:41 WBC 7.7 RBC 3.59 L Hgb 10.8 L Hct 33.5 L MCV 93.3 MCH 30.1 MCHC 32.2 RDW 16.2 H Plt Count 268 MPV 10.2 Immature Gran % 0.8 Seg Neutrophils % 92.9 Lymphocytes % 2.7 Monocytes % 3.6 Eosinophils % 0.0 Basophils % 0.0 Neutrophils # 7.1 Lymphocytes # 0.2 L Monocytes # 0.3 Eosinophils # 0.0 Basophils # 0.0 Sodium 138 Potassium 4.6 H Chloride 104 Carbon Dioxide 21 BUN 16 Creatinine 0.79 Est GFR ( Amer) > 60 Est GFR (Non-Af Amer) > 60 BUN/Creatinine Ratio 20 Glucose 104 H Calculated Osmolality 287 Uric Acid Calcium 9.0 Phosphorus 2.2 L Magnesium 1.8 Total Bilirubin 2.1 H AST 250 H ALT 161 H Alkaline Phosphatase 584 H Serum Total Protein 5.9 L Albumin 2.3 L Globulin 3.6 H Albumin/Globulin Ratio 0.6 L Random Vancomycin 13.4 11/09/16 02:41 WBC RBC Hgb Hct MCV MCH MCHC RDW Plt Count MPV Immature Gran % Seg Neutrophils % Lymphocytes % Monocytes % Eosinophils % Basophils % Neutrophils # Lymphocytes # Monocytes # Eosinophils # Basophils # Sodium Potassium Chloride Carbon Dioxide BUN Creatinine Est GFR ( Amer) Est GFR (Non-Af Amer) BUN/Creatinine Ratio Glucose Calculated Osmolality Uric Acid < 1.0 L D Calcium Phosphorus Magnesium Total Bilirubin AST ALT Alkaline Phosphatase Serum Total Protein Albumin Globulin Albumin/Globulin Ratio Random Vancomycin - ABG Interpretation ABG results: PT/INR, D-dimer PT 12.2 Seconds (9.4-12.1) H 11/06/16 18:06 Consult Discharge Plan - Plan [facility]errals: [facility] [Primary Care Provider] -
[2016-11-09] MEDS ORDERED: Dexamethasone 10 MG/ML VIAL IV SCH (15:00)
[2016-11-09] MEDS ORDERED: SODIUM CHLORIDE 0.9% IV SCH (16:00)
[2016-11-09] MEDS ORDERED: ETOPOSIDE IV SCH (16:00)
--- NOTE | 2016-11-09 16:10 | Electrocardiograph Report ---
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
--- NOTE | 2016-11-09 16:42 | Event Note ---
Date of Encounter: 11/09/16 Time of Encounter: 16:30 Spoke with girlfriend via telephone. States she will speak more with pt re: code status this weekend. She is currently caring for her 100y/o mother as well and had to leave hospital prior to us meeting. Will continue to follow.
[2016-11-10] MEDS: Ipratropium/Albuterol Neb 3 ML IH PRN ×4 (04:12→22:12)
[2016-11-10] MEDS: Levalbuterol 1 PUFF INHALER IH SCH ×4 (04:13→22:15)
[2016-11-10] MEDS: Cefepime HCl 2,000 MG in D5% in Water (Mini-Bag+) 100 ML IVPB SCH ×2 (06:12→18:30)
[2016-11-10] MEDS: *HR* Enoxaparin 40 MG/0.4 ML SYRINGE SQ SCH (06:13)
--- NOTE | 2016-11-10 06:52 | Oncology Inp Progress Note ---
Date of Encounter: 11/10/16 Time of Encounter: 06:51 Oncology: Subj Interval history: History of present illness: Patient seen and examined at bedside. Family members present at time of evaluation and provided additional information. Chart reviewed for interval details and ongoing management by hospitalist team is much appreciated. 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 He has tolerated chemotherapy well with no unexpected side effects. He received rasburicase for TLS prophylaxis and allopurinol is ongoing. Most recent uric acid level not elevated. No lingering effects from recent chemotherapy. Appetite is good. He still has some abdominal pain mostly in the right upper quadrant likely due to his hepatomegaly. Otherwise, he is doing as well as can be expected at this point during his treatment. No other new issues. Review of systems: 12 point review of systems as noted above.All other systems are negative: Physical exam: Vital Signs Temp 97.8 F 11/10/16 04:09 Pulse 97 11/10/16 04:09 Resp 16 11/10/16 04:13 BP 131/76 11/10/16 04:09 Pulse Ox 95 11/10/16 04:13 GENERAL: Alert and oriented, lethargic appearing. Mental Status: Affect appropriate for circumstances Skin: No rashes or petechiae. No evidence of skin malignancy Extremities: No edema. No calf swelling or tenderness. No joint deformity. Neurologic: Global weakness but no focal sensorimotor abnormalities. Results: Laboratory Last Values WBC 7.7 K/mcL (4.3-11.1) 11/09/16 02:41 RBC 3.59 M/mcL (4.19-5.50) L 11/09/16 02:41 Hgb 10.8 g/dL (12.9-16.9) L 11/09/16 02:41 Hct 33.5 % (37.5-50.1) L 11/09/16 02:41 MCV 93.3 fL (83.0-100.0) 11/09/16 02:41 MCH 30.1 pg (28.0-33.3) 11/09/16 02:41 MCHC 32.2 g/dL (31.6-35.5) 11/09/16 02:41 RDW 16.2 % (11.5-14.5) H 11/09/16 02:41 Plt Count 268 K/mcL (140-400) 11/09/16 02:41 MPV 10.2 fL (9.4-12.4) 11/09/16 02:41 Immature Gran % 0.8 % (0-4) 11/09/16 02:41 Seg Neutrophils % 92.9 % 11/09/16 02:41 Lymphocytes % 2.7 % 11/09/16 02:41 Monocytes % 3.6 % 11/09/16 02:41 Eosinophils % 0.0 % 11/09/16 02:41 Basophils % 0.0 % 11/09/16 02:41 Neutrophils # 7.1 K/mcL (1.6-8.9) 11/09/16 02:41 Lymphocytes # 0.2 K/mcL (0.6-4.6) L 11/09/16 02:41 Monocytes # 0.3 K/mcL (0.0-1.3) 11/09/16 02:41 Eosinophils # 0.0 K/mcL (0.0-0.6) 11/09/16 02:41 Basophils # 0.0 K/mcL (0.0-0.2) 11/09/16 02:41 PT 12.2 Seconds (9.4-12.1) H 11/06/16 18:06 INR 1.1 11/06/16 18:06 APTT 27.3 Seconds (26.0-36.0) 11/06/16 18:06 Sodium 138 mEq/L (136-145) 11/09/16 02:41 Potassium 4.6 mEq/L (3.5-4.5) H 11/09/16 02:41 Chloride 104 mEq/L (98-109) 11/09/16 02:41 Carbon Dioxide 21 mEq/L (19-29) 11/09/16 02:41 BUN 16 mg/dL (8-26) 11/09/16 02:41 Creatinine 0.79 mg/dL (0.72-1.25) 11/09/16 02:41 Est GFR ( Amer) > 60 (> 60) 11/09/16 02:41 Est GFR (Non-Af Amer) > 60 (> 60) 11/09/16 02:41 BUN/Creatinine Ratio 20 (6-26) 11/09/16 02:41 Glucose 104 mg/dL (70-99) H 11/09/16 02:41 Calculated Osmolality 287 (280-300) 11/09/16 02:41 Lactic Acid 1.9 mmol/L (0.5-2.2) 11/07/16 01:12 Uric Acid < 1.0 mg/dL (3.5-7.2) L D 11/09/16 02:41 Calcium 9.0 mg/dL (8.6-10.8) 11/09/16 02:41 Phosphorus 2.2 mg/dL (2.3-4.7) L 11/09/16 02:41 Magnesium 1.8 mg/dL (1.6-2.6) 11/09/16 02:41 Total Bilirubin 2.1 mg/dL (0.2-1.2) H 11/09/16 02:41 Direct Bilirubin 1.4 mg/dL (0.0-0.5) H 11/06/16 17:15 Indirect Bilirubin 0.6 mg/dL (0.0-1.2) 11/06/16 17:15 AST 250 Units/L (5-34) H 11/09/16 02:41 ALT 161 Units/L (0-55) H 11/09/16 02:41 Alkaline Phosphatase 584 Units/L (38-126) H 11/09/16 02:41 Lactate Dehydrogenase > 3325 Units/L (159-327) H 11/08/16 04:51 Creatine Kinase 468 Units/L (30-200) H 11/06/16 18:06 Serum Total Protein 5.9 g/dL (6.0-8.3) L 11/09/16 02:41 Albumin 2.3 g/dL (3.5-5.0) L 11/09/16 02:41 Globulin 3.6 g/dL (2.4-3.5) H 11/09/16 02:41 Albumin/Globulin Ratio 0.6 (1.1-2.2) L 11/09/16 02:41 Lipase 27 Units/L (8-78) 11/06/16 17:15 Urine Color Yellow (Yellow) 11/07/16 00:22 Urine Clarity Clear (Clear) 11/07/16 00:22 Urine pH 6.0 pH Units (5.0-8.0) 11/07/16 00:22 Ur Specific [place] 1.021 (1.010-1.025) 11/07/16 00:22 Urine Protein 30 mg/dL (Neg-Trace) H 11/07/16 00:22 Urine Glucose (UA) Normal mg/dL (Normal) 11/07/16 00:22 Urine Ketones 15 mg/dL (Negative) H 11/07/16 00:22 Urine Blood Negative (Negative) 11/07/16 00:22 Urine Nitrite Negative (Negative) 11/07/16 00:22 Urine Bilirubin Negative (Negative) 11/07/16 00:22 Urine Urobilinogen Normal mg/dL (Normal) 11/07/16 00:22 Ur Leukocyte Esterase Negative (Negative) 11/07/16 00:22 Urine Microscopic RBC 0-3 per hpf (0-3) 11/07/16 00:22 Urine Microscopic WBC 0-3 per hpf (0-3) 11/07/16 00:22 Ur Squamous Epith Cells Few per lpf (None-Few) 11/07/16 00:22 Urine Bacteria Few per hpf (None-Few) 11/07/16 00:22 Hyaline Casts None Seen per lpf (None-Few) 11/07/16 00:22 Ur Culture Indicated? NO (NO) 11/07/16 00:22 Random Vancomycin 13.4 mcg/mL 11/09/16 02:41 Specimen Rejected Clotted 11/06/16 17:15 Blood Type A POSITIVE 11/06/16 17:15 Antibody Screen NEGATIVE 11/06/16 17:15 Radiographic studies: Impression/recommendations: Metastatic neuroendocrine carcinoma with liver involvement: Cycle 1 day 3 of cisplatin plus etoposide regimen today. He received 2 days of etoposide for better tolerability. Has tolerated treatment relatively well. No unexpected side effects. Encounter for chemotherapy monitoring: He is doing relatively well at this point during his chemotherapy. He remains at risk for nausea/vomiting/mucositis/cytopenias related to recent chemotherapy with greatest risk between 5 and 10 days posttreatment. We'll recommend for him to remain in hospital for close monitoring due to limited support at home. Hopefully can be discharged at the beginning of the coming week. Generalized weakness: Multifactorial. Possible contribution from his underlying disseminated malignancy. Recent thyroid panel did not show any evidence of thyroid dysfunction. Anticipate improvement in his overall condition if he responds to chemotherapy. PT/OT can help speed up his recovery. Consider rehabilitation consult if not already done. Anemia: Normocytic. Mild severity. Predates chemotherapy. Recommend complete anemia workup including reticular, iron panel, ferritin, B12 , folate, haptoglobin, Jose to look for hematinic deficiencies etc. that may be contributing to his anemia. If untreated, this may contribute to worsening of anemia in the setting of recent chemotherapy. We'll recommend transfusion support as needed to maintain hemoglobin of 7 or greater and platelet count of 30,000 or greater. We'll follow the patient along side you during this hospitalization but please do not hesitate to call regarding interval hematologic questions as they arise. Thank you for your excellent ongoing care for allowing us to see him while in- house. - Constitutional Vitals: Vital Signs Temp Pulse Resp BP Pulse Ox 11/10/16 04:13 16 95 11/10/16 04:09 97.8 F 97 16 131/76 92 11/10/16 01:03 97.7 F 95 16 107/66 96 11/09/16 22:44 17 98 11/09/16 20:14 98 F 102 17 121/70 90 11/09/16 16:25 18 95 11/09/16 15:51 97.7 F 106 18 134/84 96 11/09/16 14:30 98.2 F 109 18 124/74 96 11/09/16 12:13 97.6 F 118 16 143/78 96 11/09/16 11:01 17 96 11/09/16 08:30 95 11/09/16 07:49 97.8 F 107 16 117/69 95 Intake and Output 11/09/16 11/10/16 11/10/16 16:59 00:59 08:59 Intake Total 1200 / 1200 1354 / 1354 Output Total 350 / 350 Balance 1200 / 1200 1354 / 1354 -350 / -350 Intake: IV Fluids 1354 / 1354 Etoposide 80 mg In 0.9 % 254 / 254 Sodium Chloride 250 ML @ 254 mls/hr IV 1600 GIFTY Rx #:[id number] 0.9 % Sodium Chloride 1, 1000 / 1000 000 ML @ 75 mls/hr IVC . [id number] GIFTY Rx#: [id number] Maxipime 2,000 MG In 100 / 100 Dextrose 5% (Minibag+) 100 ML 100 ML @ 200 mls/ hr IVPB Q12HR GIFTY Rx#: [id number] Oral 1200 / 1200 0 / 0 Output: Urine 350 / 350 Other: Meal Lunch Percent of Meal Consumed 50% Weight 61.8 kg Patient Weight 11/11/16 00:59 Weight 61.8 kg Oncology: Obj Data - Labs CBC & Chem 7: 11/10/16 06:51 11/10/16 06:51 - ABG Interpretation ABG results: PT/INR, D-dimer PT 12.2 Seconds (9.4-12.1) H 11/06/16 18:06 Consult Discharge Plan - Plan [facility]: [facility] [Primary Care Provider[facility] -
[2016-11-10 07:19] LABS: Basophils % 0.1 %; Hematocrit 33.1 % (37.5-50.1); Hemoglobin 10.4 g/dL (12.9-16.9); Lymphocytes # 0.2 K/mcL (0.6-4.6); Lymphocytes % 1.8 %; Mean Corpuscular HGB Conc 31.4 g/dL (31.6-35.5); Mean Corpuscular Hemoglobin 29.1 pg (28.0-33.3); Mean Corpuscular Volume 92.5 fL (83.0-100.0); Mean Platelet Volume 9.5 fL (9.4-12.4); Monocytes # 0.8 K/mcL (0.0-1.3); Neutrophils # 10.4 K/mcL (1.6-8.9); Platelet Count 253 K/mcL (140-400); Red Blood Count 3.58 M/mcL (4.19-5.50); Red Cell Distribution Width 16.5 % (11.5-14.5); Segmented Neutrophils % 90.1 %
--- NOTE | 2016-11-10 07:26 | Internal Med Progress Note ---
<Nirmal Ingram - Last Filed: 11/10/16 09:06> Date of Encounter: 11/10/16 Time of Encounter: 07:24 - Assessment and plan (1) Metastatic malignant neuroendocrine tumor to liver Current Visit: Yes Status: Acute Assessment and plan: Liver, biopsy: Positive for carcinoma with neuroendocrine features, This tumor is aggressive and behaving clinically like small cell carcinoma. Patient was scheduled for a PET scan prior to admission Multiple liver metastasis with hepatomegaly. Elevated liver enzymes and alkaline phosphatase Started palliative chemotherapy per oncology recommendations He is at high risk for tumor lysis syndrome. Potassium 4.5 Monitor phosphorus. Continue Allopurinol 200 mg by mouth at bedtime Oncology following Palliative care following (2) Abdominal pain Current Visit: Yes Status: Acute Assessment and plan: Sharp abdominal pain localized to the right upper quadrant and epigastric region likely related to hepatic carcinoma CT abdomen and pelvis reveals Diffuse hepatic metastatic disease. Continue analgesics as needed. Palliative care following Qualifiers: Abdominal location: right upper quadrant Qualified Code(s): R10.11 - Right upper quadrant pain (3) Severe sepsis Current Visit: Yes Status: Acute Assessment and plan: Severe sepsis secondary to pneumonia present on admission. Met Severe sepsis criteria with tachycardia heart rate 129, tachypnea RR 24, white blood count 19.2, right lower lobe pneumonia source of infection, Lactic acidosis 2.7, which has resolved. Blood cultures show no growth. Continue IV fluids and antibiotics. Continue to monitor closely. (4) Pneumonia Current Visit: Yes Status: Acute Assessment and plan: CT chest shows Right lower lobe infiltrate concerning for pneumonia. Leukocytosis resolved Continue antibiotic coverage with cefepime and vancomycin (Day 4) Qualifiers: Pneumonia type: due to unspecified organism Laterality: right Lung location: lower lobe of lung Qualified Code(s): J18.1 - Lobar pneumonia, unspecified organism (5) Acute kidney injury Current Visit: Yes Status: Resolved Assessment and plan: Prerenal JEWEL secondary to dehydration. Continue IV fluids at 75 mL/h Patient has high-risk for tumor lysis syndrome. Continue to monitor (6) COPD without exacerbation Current Visit: Yes Status: Chronic Assessment and plan: Patient wears baseline 2 L supplemental oxygen via nasal cannula at home Received Solu-Medrol and 25 mg IV in ED, Continue home prednisone 10 mg by mouth daily Continue cefepime and vancomycin (day 4) Continue duo nebs as scheduled (7) Lung nodules Current Visit: Yes Status: Acute Assessment and plan: CT chest revealed lower lobe infiltrate with masslike appearance which could be malignant infiltrate. He was evaluated by Dr. Butler and had a bronchoscopy around 02/08/2015. It showed benign-looking narrowing in the bronchus mainly left upper lobe. Biopsy of the left upper lobe area showed atypical squamous cells and biopsy showed dysplastic squamous cells. Thoracic surgery [facility] recommended conservative management with repeat CAT scan. Continued chemotherapy as above Oncology following (8) Hyperkalemia Current Visit: Yes Status: Resolved Assessment and plan: Resolved. He is at high risk for tumor lysis syndrome. Continue to monitor (9) Hypercalcemia Current Visit: Yes Status: Acute Assessment and plan: Corrected calcium is 10.0 We will hold patient's vitamin D and oral calcium with his hypercalcemia. Elevated calcium is likely related to his cancer (10) Hypomagnesemia Current Visit: Yes Status: Resolved Assessment and plan: Continue to monitor (11) Tumor-induced hypophosphatemia Current Visit: Yes Status: Resolved Assessment and plan: Continue to monitor, patient is high risk for tumor lysis syndrome (12) DVT prophylaxis Current Visit: Yes Status: Acute Assessment and plan: Lovenox Patient seen and examined, plan discussed with and agreed upon with Dr. Eric - Subjective Interval history: The resting comfortably in bed. He reports palpitations, shortness of breath, diaphoresis, and fatigue. Patient tolerating by mouth intake and denies pain. Oncology and palliative care following. - Constitutional Vitals: Temp Pulse Resp BP Pulse Ox 97.8 F 97 16 131/76 95 11/10/16 04:09 11/10/16 04:09 11/10/16 04:13 11/10/16 04:09 11/10/16 04:13 General appearance: Present: cachectic, cooperative, disheveled, mild distress, A&O X 3, pleasant, underweight, answers questions appropriately Exam: Appears ill - Head Head exam: Present: atraumatic, normocephalic - Eye Eye exam: Present: PERRL, conjuntiva pink, sclera anicteric Pupils: Present: PERRL - ENT ENT exam: Present: mucous membranes moist, normal oropharynx - Neck Neck exam general surgery: Present: supple, trachea midline. Absent: lymphadenopathy - Respiratory Respiratory exam: Present: CTAB. Absent: accessory muscle use, decreased breath sounds, prolonged expiratory phase, rales, respiratory distress, rhonchi , wheezes - Cardiovascular Cardiovascular exam: Present: +S1, +S2, tachycardia. Absent: diastolic murmur, gallop, rubs, systolic murmur - GI/Abdominal GI/Abdominal exam: Present: firm, hepatomegaly, normal bowel sounds, tenderness , no peritoneal signs. Absent: distended - Extremities Exam Extremities exam: Present: warm, radial pulses palpable and symetrical. Absent : calf tenderness, cyanotic, pedal edema - Neurological Exam Neurological exam: Present: CN II-XII intact, oriented X3, no focal deficits. Absent: pronater drift, facial droop, speech deficit - Skin Skin exam: Present: diaphoretic, intact. Absent: pallor, rash Internal Medicine: Result - Labs CBC & Chem 7: 11/10/16 06:51 11/10/16 06:51 Labs: Short CBC 11/10/16 Range/Units 06:51 WBC 11.5 H (4.3-11.1) K/mcL Hgb 10.4 L (12.9-16.9) g/dL Hct 33.1 L (37.5-50.1) % Plt Count 253 (140-400) K/mcL Neutrophils # 10.4 H (1.6-8.9) K/mcL - ABG Interpretation ABG results: PT/INR, D-dimer PT 12.2 Seconds (9.4-12.1) H 11/06/16 18:06 Consult Discharge Plan - Plan [facility]errals: [facility] [Primary Care Provider] - <[facility] P - Last Filed: 11/10/16 11:45> Date of Encounter: 11/10/16 - Constitutional Vitals: Temp Pulse Resp BP Pulse Ox 98.0 F 101 15 138/75 97 11/10/16 11:28 11/10/16 11:28 11/10/16 11:28 11/10/16 11:28 11/10/16 11:28 Internal Medicine: Result - Labs CBC & Chem 7: 11/10/16 06:51 11/10/16 06:51 Labs: Short CBC 11/10/16 Range/Units 06:51 WBC 11.5 H (4.3-11.1) K/mcL Hgb 10.4 L (12.9-16.9) g/dL Hct 33.1 L (37.5-50.1) % Plt Count 253 (140-400) K/mcL Neutrophils # 10.4 H (1.6-8.9) K/mcL BMP 11/10/16 06:51 Sodium 134 L Potassium 4.5 Chloride 106 Carbon Dioxide 18 L BUN 28 H D Creatinine 1.14 Glucose 91 Calcium 8.5 L Liver Function 11/10/16 Range/Units 06:51 Total Bilirubin 3.0 H (0.2-1.2) mg/dL AST 240 H (5-34) Units/L ALT 158 H (0-55) Units/L Alkaline Phosphatase 552 H (38-126) Units/L Albumin 2.1 L (3.5-5.0) g/dL - ABG Interpretation ABG results: PT/INR, D-dimer PT 12.2 Seconds (9.4-12.1) H 11/06/16 18:06 - Attending Attestation I examined this patient and my medical decision-making was reviewed with the Resident Physician. I agree with the documented findings, disposition and treatment plan as described except to the extent set forth below. Known to have a neuroendocrine tumor with metastasis to liver. Presently on chemotherapy. Liver enzymes are trending down. LDH more than 3000. Plan: Will continue to monitor electrolytes. We will continue to follow the recommendations from oncology.
[2016-11-10 07:39] LABS: Alanine Aminotransferase 158 Units/L (0-55); Albumin 2.1 g/dL (3.5-5.0); Albumin/Globulin Ratio 0.6 (1.1-2.2); Alkaline Phosphatase 552 Units/L (38-126); Aspartate Amino Transferase 240 Units/L (5-34); BUN/Creatinine Ratio 25 (6-26); Calcium 8.5 mg/dL (8.6-10.8); Carbon Dioxide 18 mEq/L (19-29); Chloride 106 mEq/L (98-109); Globulin 3.3 g/dL (2.4-3.5); Glucose 91 mg/dL (70-99); Magnesium 1.6 mg/dL (1.6-2.6); Osmolality,Calculated 283 (280-300); Potassium 4.5 mEq/L (3.5-4.5); Sodium 134 mEq/L (136-145); Total Protein 5.4 g/dL (6.0-8.3); eGFR For African Americans > 60 (> 60); eGFR For Non-African Americans > 60 (> 60)
[2016-11-10 07:41] LABS: Blood Urea Nitrogen 28 mg/dL (8-26); Phosphorous 3.5 mg/dL (2.3-4.7)
[2016-11-10] MEDS: predniSONE 10 MG TABLET PO SCH (08:08)
[2016-11-10] MEDS: Metoprolol XL (24 HR) Succ 50 MG TAB.ER.24H PO SCH (08:08)
[2016-11-10] MEDS: Gabapentin 100 MG CAPSULE PO SCH ×4 (08:08→20:15)
[2016-11-10] MEDS: Vancomycin 1,250 MG in D5% in Water 250 ML IVPB SCH (08:09)
[2016-11-10] MEDS: Lidocaine 4% CREAM (LMX) 5 GM TP SCH ×2 (08:09→20:16)
[2016-11-10] MEDS: Tiotropium 18 MCG inhalation IH SCH (09:35)
[2016-11-10] MEDS: Budesonide/Formoterol 160/4.5 MDI IH SCH ×2 (09:35→22:12)
[2016-11-10] MEDS: *HR* HYDROcodone/Acet 5/325 mg TABLET PO PRN ×2 (11:39→20:15)
[2016-11-10] MEDS: 0.9 % Sodium Chloride 1,000 ML IVC SCH ×2 (20:17→22:54)
[2016-11-11] MEDS ORDERED: 0.9 % Sodium Chloride 500 ML IVC ONE (02:52)
[2016-11-11] MEDS: *HR* HYDROcodone/Acet 5/325 mg TABLET PO PRN ×2 (03:12→21:11)
[2016-11-11] MEDS: Ipratropium/Albuterol Neb 3 ML IH PRN ×4 (04:23→21:48)
[2016-11-11] MEDS: Levalbuterol 1 PUFF INHALER IH SCH ×4 (04:26→21:49)
[2016-11-11] MEDS: Cefepime HCl 2,000 MG in D5% in Water (Mini-Bag+) 100 ML IVPB SCH ×2 (05:30→17:26)
[2016-11-11] MEDS: *HR* Enoxaparin 40 MG/0.4 ML SYRINGE SQ SCH (05:30)
--- NOTE | 2016-11-11 07:11 | Internal Med Progress Note ---
<Nirmal Ingram - Last Filed: 11/11/16 12:26> Date of Encounter: 11/11/16 Time of Encounter: 07:10 - Assessment and plan (1) Metastatic malignant neuroendocrine tumor to liver Current Visit: Yes Status: Acute Assessment and plan: Liver, biopsy: Positive for carcinoma with neuroendocrine features, This tumor is aggressive and behaving clinically like small cell carcinoma. Patient was scheduled for a PET scan prior to admission Multiple liver metastasis with hepatomegaly. Started palliative chemotherapy per oncology recommendations: Cycle 1 day 4 of cisplatin plus etoposide regimen today. He received 2 days of etoposide for better tolerability. Has tolerated treatment relatively well. No unexpected side effects Continue Allopurinol 200 mg by mouth at bedtime CT abdomen and pelvis with oral contrast ordered. Palliative care following He is at high risk for tumor lysis syndrome. He remains at risk for nausea/ vomiting/mucositis/cytopenias related to recent chemotherapy with greatest risk between 5 and 10 days posttreatment. Monitor potassium and phosphorous levels. Continue IV hydration We'll recommend for him to remain in hospital for close monitoring due to limited support at home. Hopefully can be discharged during the course of the coming week. (2) Abdominal pain Current Visit: Yes Status: Acute Assessment and plan: Sharp abdominal pain localized to the right upper quadrant and epigastric region likely related to burden of malignancy. CT abdomen and pelvis reveals Diffuse hepatic metastatic disease. repeatCT abdomen and pelvis with oral contrast ordered. Continue analgesics as needed. Palliative care following Qualifiers: Abdominal location: right upper quadrant Qualified Code(s): R10.11 - Right upper quadrant pain (3) Severe sepsis Current Visit: Yes Status: Acute Assessment and plan: Severe sepsis secondary to pneumonia present on admission. Met Severe sepsis criteria with tachycardia heart rate 129, tachypnea RR 24, white blood count 19.2, right lower lobe pneumonia source of infection, Lactic acidosis 2.7, which has resolved. Blood cultures show no growth. Continue IV fluids and antibiotics. Continue to monitor closely. (4) Pneumonia Current Visit: Yes Status: Acute Assessment and plan: CT chest shows Right lower lobe infiltrate concerning for pneumonia. Leukocytosis resolved Continue antibiotic coverage with cefepime and vancomycin (Day 5) Qualifiers: Pneumonia type: due to unspecified organism Laterality: right Lung location: lower lobe of lung Qualified Code(s): J18.1 - Lobar pneumonia, unspecified organism (5) COPD without exacerbation Current Visit: Yes Status: Chronic Assessment and plan: Patient wears baseline 2 L supplemental oxygen via nasal cannula at home Received Solu-Medrol and 25 mg IV in ED, Continue home prednisone 10 mg by mouth daily Continue cefepime and vancomycin (day 5) Continue duo nebs as scheduled (6) Lung nodules Current Visit: Yes Status: Acute Assessment and plan: CT chest revealed lower lobe infiltrate with masslike appearance which could be malignant infiltrate. He was evaluated by Dr. Butler and had a bronchoscopy around 02/08/2015. It showed benign-looking narrowing in the bronchus mainly left upper lobe. Biopsy of the left upper lobe area showed atypical squamous cells and biopsy showed dysplastic squamous cells. Thoracic surgery [facility] recommended conservative management with repeat CAT scan. Continued chemotherapy as above Oncology following (7) Acute kidney injury Current Visit: Yes Status: Resolved Assessment and plan: Prerenal JEWEL secondary to dehydration. Continue IV fluids at 75 mL/h Patient has high-risk for tumor lysis syndrome. Continue to monitor (8) Hyponatremia Current Visit: Yes Status: Acute Assessment and plan: continue IV hydration. Continue to monitor (9) Hyperkalemia Current Visit: Yes Status: Acute Assessment and plan: He is at high risk for tumor lysis syndrome. Continue to monitor (10) Hypercalcemia Current Visit: Yes Status: Acute Assessment and plan: Corrected calcium is 10.1 We will hold patient's vitamin D and oral calcium with his hypercalcemia. Elevated calcium is likely related to his cancer (11) Hypomagnesemia Current Visit: Yes Status: Resolved Assessment and plan: Continue to monitor (12) Tumor-induced hypophosphatemia Current Visit: Yes Status: Resolved Assessment and plan: Continue to monitor, patient is high risk for tumor lysis syndrome (13) Anemia Current Visit: No Status: Acute Assessment and plan: Predates chemotherapy. Recommend complete anemia workup including reticular, iron panel, ferritin, B12 , folate, haptoglobin, Jose to look for treatable hematinic deficiencies etc. that may be contributing to his anemia. Hematology/oncology recommends transfusion support as needed to maintain hemoglobin of 7 or greater and platelet count of 30,000 or greater. Qualifiers: Anemia type: unspecified type Qualified Code(s): D64.9 - Anemia, unspecified (14) DVT prophylaxis Current Visit: Yes Status: Acute Assessment and plan: Lovenox Patient seen and examined, plan discussed with and agreed upon with Dr. Eric - Subjective Interval history: The resting comfortably in bed. He reports palpitations, shortness of breath, diaphoresis, and fatigue. Patient tolerating by mouth intake and denies pain. Oncology and palliative care following. - Constitutional Vitals: Temp Pulse Resp BP Pulse Ox 98.3 F 121 18 130/76 92 11/11/16 04:20 11/11/16 04:20 11/11/16 04:26 11/11/16 04:20 11/11/16 04:26 General appearance: Present: cachectic, cooperative, disheveled, mild distress, A&O X 3, pleasant, underweight, answers questions appropriately - Head Head exam: Present: atraumatic, normocephalic - Eye Eye exam: Present: PERRL, conjuntiva pink, sclera anicteric Pupils: Present: PERRL - ENT ENT exam: Present: mucous membranes moist, normal oropharynx - Neck Neck exam general surgery: Present: supple, trachea midline. Absent: lymphadenopathy - Respiratory Respiratory exam: Present: CTAB. Absent: accessory muscle use, rales, rhonchi, wheezes - Cardiovascular Cardiovascular exam: Present: RRR, +S1, +S2. Absent: diastolic murmur, gallop, rubs, systolic murmur - GI/Abdominal GI/Abdominal exam: Present: firm, hepatomegaly, normal bowel sounds, tenderness , no peritoneal signs. Absent: distended - Extremities Exam Extremities exam: Present: warm, radial pulses palpable and symetrical. Absent : calf tenderness, cyanotic, pedal edema - Neurological Exam Neurological exam: Present: CN II-XII intact, oriented X3, no focal deficits. Absent: pronater drift, facial droop, speech deficit - Psychiatric Psychiatric exam: Present: normal affect, normal mood - Skin Skin exam: Present: diaphoretic, intact, warm Internal Medicine: Result - Labs CBC & Chem 7: 11/11/16 06:40 11/11/16 06:40 Labs: Short CBC 11/10/16 Range/Units 06:51 WBC 11.5 H (4.3-11.1) K/mcL Hgb 10.4 L (12.9-16.9) g/dL Hct 33.1 L (37.5-50.1) % Plt Count 253 (140-400) K/mcL Neutrophils # 10.4 H (1.6-8.9) K/mcL BMP 11/10/16 06:51 Sodium 134 L Potassium 4.5 Chloride 106 Carbon Dioxide 18 L BUN 28 H D Creatinine 1.14 Glucose 91 Calcium 8.5 L Liver Function 11/10/16 Range/Units 06:51 Total Bilirubin 3.0 H (0.2-1.2) mg/dL AST 240 H (5-34) Units/L ALT 158 H (0-55) Units/L Alkaline Phosphatase 552 H (38-126) Units/L Albumin 2.1 L (3.5-5.0) g/dL - ABG Interpretation ABG results: PT/INR, D-dimer PT 12.2 Seconds (9.4-12.1) H 11/06/16 18:06 Consult Discharge Plan - Plan [facility]errals: [facility]Primary Care Provider[facility] - <[facility] P - Last Filed: 11/11/16 14:59> Date of Encounter: 11/11/16 - Constitutional Vitals: Temp Pulse Resp BP Pulse Ox 99.1 F 100 18 103/57 95 11/11/16 11:58 11/11/16 11:58 11/11/16 11:58 11/11/16 11:58 11/11/16 11:58 Internal Medicine: Result - Labs CBC & Chem 7: 11/11/16 06:40 11/11/16 06:40 Labs: Short CBC 11/11/16 Range/Units 06:40 WBC 11.5 H (4.3-11.1) K/mcL Hgb 10.9 L (12.9-16.9) g/dL Hct 33.2 L (37.5-50.1) % Plt Count 235 (140-400) K/mcL Neutrophils # 10.4 H (1.6-8.9) K/mcL BMP 11/11/16 06:40 Sodium 134 L Potassium 5.3 H Chloride 106 Carbon Dioxide 21 BUN 28 H Creatinine 0.90 Glucose 70 Calcium 8.4 L Liver Function 11/11/16 Range/Units 06:40 Total Bilirubin 3.9 H (0.2-1.2) mg/dL AST 234 H (5-34) Units/L ALT 144 H (0-55) Units/L Alkaline Phosphatase 567 H (38-126) Units/L Albumin 1.9 L (3.5-5.0) g/dL - ABG Interpretation ABG results: PT/INR, D-dimer PT 12.2 Seconds (9.4-12.1) H 11/06/16 18:06 - Impressions Impressions Abdomen/Pelvis CT 11/11/16 09:59 IMPRESSION: 1. No acute intra-abdominal or intrapelvic process. No significant interval change. 2. Extensive hepatic metastases unchanged from the previous exam. 3. New small bilateral pleural effusions have developed with bibasilar atelectasis of unclear etiology. 4. Stable abdominal aortic aneurysm measuring 4.6 cm. 5. Distended urinary bladder of questionable clinical significance. Correlation with urine output recommended. 6. Stable compression deformities in the upper and mid lumbar spine. D/ / Srinath Rivera MD / Srinath Rivera MD Interpreting Provider: Srinath Rivera MD - Attending Attestation I examined this patient and my medical decision-making was reviewed with the Resident Physician. I agree with the documented findings, disposition and treatment plan as described except to the extent set forth below. oncology input appreciated.
[2016-11-11 07:20] LABS: Basophils % 0.1 %; Eosinophils % 0.1 %; Hematocrit 33.2 % (37.5-50.1); Hemoglobin 10.9 g/dL (12.9-16.9); Immature Granulocytes % 0.7 % (0-4); Lymphocytes # 0.8 K/mcL (0.6-4.6); Lymphocytes % 6.6 %; Mean Corpuscular HGB Conc 32.8 g/dL (31.6-35.5); Mean Corpuscular Hemoglobin 30.4 pg (28.0-33.3); Mean Corpuscular Volume 92.5 fL (83.0-100.0); Monocytes # 0.2 K/mcL (0.0-1.3); Monocytes % 1.8 %; Neutrophils # 10.4 K/mcL (1.6-8.9); Platelet Count 235 K/mcL (140-400); Red Blood Count 3.59 M/mcL (4.19-5.50); Red Cell Distribution Width 16.6 % (11.5-14.5); Segmented Neutrophils % 90.7 %
[2016-11-11 07:47] LABS: Alanine Aminotransferase 144 Units/L (0-55); Albumin/Globulin Ratio 0.6 (1.1-2.2); Alkaline Phosphatase 567 Units/L (38-126); Aspartate Amino Transferase 234 Units/L (5-34); BUN/Creatinine Ratio 31 (6-26); Bilirubin,Total 3.9 mg/dL (0.2-1.2); Calcium 8.4 mg/dL (8.6-10.8); Carbon Dioxide 21 mEq/L (19-29); Chloride 106 mEq/L (98-109); Globulin 3.4 g/dL (2.4-3.5); Glucose 70 mg/dL (70-99); Osmolality,Calculated 282 (280-300); Potassium 5.3 mEq/L (3.5-4.5); Sodium 134 mEq/L (136-145); Total Protein 5.3 g/dL (6.0-8.3); eGFR For African Americans > 60 (> 60); eGFR For Non-African Americans > 60 (> 60)
[2016-11-11 07:57] LABS: Albumin 1.9 g/dL (3.5-5.0); Blood Urea Nitrogen 28 mg/dL (8-26); Magnesium 1.8 mg/dL (1.6-2.6); Phosphorous 2.7 mg/dL (2.3-4.7)
[2016-11-11] MEDS: Gabapentin 100 MG CAPSULE PO SCH ×4 (08:18→21:00)
[2016-11-11] MEDS: predniSONE 10 MG TABLET PO SCH (08:18)
[2016-11-11] MEDS: Lidocaine 4% CREAM (LMX) 5 GM TP SCH ×2 (08:19→21:00)
[2016-11-11] MEDS: Metoprolol XL (24 HR) Succ 50 MG TAB.ER.24H PO SCH (08:19)
--- NOTE | 2016-11-11 08:32 | Oncology Inp Progress Note ---
Date of Encounter: 11/11/16 Time of Encounter: 08:23 Oncology: Subj Interval history: History of present illness: Patient seen and examined at bedside. Chart reviewed for interval details and appreciate ongoing management by hospital team. Cycle 1 day 4 of chemotherapy today. Has tolerated chemotherapy fairly well. No unexpected side effects. He is doing quite well today. No new physical complaints. Lab work is stable and no indication of severe myelosuppression from chemotherapy although is starting the course of treatment. Vital signs are stable. He still has some abdominal pain. This has been attributed to his disease burden. He does not feel his pain is controlled optimally with his current regimen. No other new issues. Review of systems: 12 point review of systems as noted above.All other systems are negative: Physical exam: Vital Signs Temp 98.2 F 11/11/16 07:34 Pulse 123 11/11/16 07:34 Resp 20 11/11/16 07:34 BP 122/74 11/11/16 07:34 Pulse Ox 91 11/11/16 07:34 GENERAL: Alert and oriented, comfortable appearing. Mental Status: Affect appropriate for circumstances Skin: No rashes or petechiae. No evidence of skin malignancy Extremities: No edema. No calf swelling or tenderness. No joint deformity. Neurologic: Global weakness but no focal sensorimotor abnormalities. Results: Laboratory Last Values WBC 11.5 K/mcL (4.3-11.1) H 11/11/16 06:40 RBC 3.59 M/mcL (4.19-5.50) L 11/11/16 06:40 Hgb 10.9 g/dL (12.9-16.9) L 11/11/16 06:40 Hct 33.2 % (37.5-50.1) L 11/11/16 06:40 MCV 92.5 fL (83.0-100.0) 11/11/16 06:40 MCH 30.4 pg (28.0-33.3) 11/11/16 06:40 MCHC 32.8 g/dL (31.6-35.5) 11/11/16 06:40 RDW 16.6 % (11.5-14.5) H 11/11/16 06:40 Plt Count 235 K/mcL (140-400) 11/11/16 06:40 MPV 10.0 fL (9.4-12.4) 11/11/16 06:40 Immature Gran % 0.7 % (0-4) 11/11/16 06:40 Seg Neutrophils % 90.7 % 11/11/16 06:40 Lymphocytes % 6.6 % 11/11/16 06:40 Monocytes % 1.8 % 11/11/16 06:40 Eosinophils % 0.1 % 11/11/16 06:40 Basophils % 0.1 % 11/11/16 06:40 Neutrophils # 10.4 K/mcL (1.6-8.9) H 11/11/16 06:40 Lymphocytes # 0.8 K/mcL (0.6-4.6) 11/11/16 06:40 Monocytes # 0.2 K/mcL (0.0-1.3) 11/11/16 06:40 Eosinophils # 0.0 K/mcL (0.0-0.6) 11/11/16 06:40 Basophils # 0.0 K/mcL (0.0-0.2) 11/11/16 06:40 PT 12.2 Seconds (9.4-12.1) H 11/06/16 18:06 INR 1.1 11/06/16 18:06 APTT 27.3 Seconds (26.0-36.0) 11/06/16 18:06 Sodium 134 mEq/L (136-145) L 11/11/16 06:40 Potassium 5.3 mEq/L (3.5-4.5) H 11/11/16 06:40 Chloride 106 mEq/L (98-109) 11/11/16 06:40 Carbon Dioxide 21 mEq/L (19-29) 11/11/16 06:40 BUN 28 mg/dL (8-26) H 11/11/16 06:40 Creatinine 0.90 mg/dL (0.72-1.25) 11/11/16 06:40 Est GFR ( Amer) > 60 (> 60) 11/11/16 06:40 Est GFR (Non-Af Amer) > 60 (> 60) 11/11/16 06:40 BUN/Creatinine Ratio 31 (6-26) H 11/11/16 06:40 Glucose 70 mg/dL (70-99) 11/11/16 06:40 POC Glucose 82 (58-89) 11/11/16 07:39 Calculated Osmolality 282 (280-300) 11/11/16 06:40 Lactic Acid 1.9 mmol/L (0.5-2.2) 11/07/16 01:12 Uric Acid < 1.0 mg/dL (3.5-7.2) L D 11/09/16 02:41 Calcium 8.4 mg/dL (8.6-10.8) L 11/11/16 06:40 Phosphorus 2.7 mg/dL (2.3-4.7) 11/11/16 06:40 Magnesium 1.8 mg/dL (1.6-2.6) 11/11/16 06:40 Total Bilirubin 3.9 mg/dL (0.2-1.2) H 11/11/16 06:40 Direct Bilirubin 1.4 mg/dL (0.0-0.5) H 11/06/16 17:15 Indirect Bilirubin 0.6 mg/dL (0.0-1.2) 11/06/16 17:15 AST 234 Units/L (5-34) H 11/11/16 06:40 ALT 144 Units/L (0-55) H 11/11/16 06:40 Alkaline Phosphatase 567 Units/L (38-126) H 11/11/16 06:40 Lactate Dehydrogenase > 3325 Units/L (159-327) H 11/08/16 04:51 Creatine Kinase 468 Units/L (30-200) H 11/06/16 18:06 Serum Total Protein 5.3 g/dL (6.0-8.3) L 11/11/16 06:40 Albumin 1.9 g/dL (3.5-5.0) L 11/11/16 06:40 Globulin 3.4 g/dL (2.4-3.5) 11/11/16 06:40 Albumin/Globulin Ratio 0.6 (1.1-2.2) L 11/11/16 06:40 Lipase 27 Units/L (8-78) 11/06/16 17:15 Urine Color Yellow (Yellow) 11/07/16 00:22 Urine Clarity Clear (Clear) 11/07/16 00:22 Urine pH 6.0 pH Units (5.0-8.0) 11/07/16 00:22 Ur Specific [place] 1.021 (1.010-1.025) 11/07/16 00:22 Urine Protein 30 mg/dL (Neg-Trace) H 11/07/16 00:22 Urine Glucose (UA) Normal mg/dL (Normal) 11/07/16 00:22 Urine Ketones 15 mg/dL (Negative) H 11/07/16 00:22 Urine Blood Negative (Negative) 11/07/16 00:22 Urine Nitrite Negative (Negative) 11/07/16 00:22 Urine Bilirubin Negative (Negative) 11/07/16 00:22 Urine Urobilinogen Normal mg/dL (Normal) 11/07/16 00:22 Ur Leukocyte Esterase Negative (Negative) 11/07/16 00:22 Urine Microscopic RBC 0-3 per hpf (0-3) 11/07/16 00:22 Urine Microscopic WBC 0-3 per hpf (0-3) 11/07/16 00:22 Ur Squamous Epith Cells Few per lpf (None-Few) 11/07/16 00:22 Urine Bacteria Few per hpf (None-Few) 11/07/16 00:22 Hyaline Casts None Seen per lpf (None-Few) 11/07/16 00:22 Ur Culture Indicated? NO (NO) 11/07/16 00:22 Stool Occult Blood Negative (Negative) 11/10/16 12:14 Vancomycin Trough 18.7 mcg/mL (10-20) 11/11/16 06:40 Random Vancomycin 13.4 mcg/mL 11/09/16 02:41 Specimen Rejected Clotted 11/06/16 17:15 Blood Type A POSITIVE 11/06/16 17:15 Antibody Screen NEGATIVE 11/06/16 17:15 Radiographic studies: Impression/recommendations: Metastatic neuroendocrine carcinoma with liver involvement: Cycle 1 day 4 of cisplatin plus etoposide regimen today. He received 2 days of etoposide for better tolerability. Has tolerated treatment relatively well. No unexpected side effects. Encounter for chemotherapy monitoring: He is doing relatively well at this point during his chemotherapy. He remains at risk for nausea/vomiting/mucositis/cytopenias related to recent chemotherapy with greatest risk between 5 and 10 days posttreatment. We'll recommend for him to remain in hospital for close monitoring due to limited support at home. Hopefully can be discharged during the course of the coming week. Generalized weakness: Multifactorial. Possible contribution from his underlying disseminated malignancy. Recent thyroid panel did not show any evidence of thyroid dysfunction. Anticipate improvement in his overall condition if he responds to chemotherapy. PT/OT can help speed up his recovery. Consider rehabilitation consult if not already done. Anemia: Normocytic. Mild severity. Predates chemotherapy. Recommend complete anemia workup including reticular, iron panel, ferritin, B12 , folate, haptoglobin, Jose to look for treatable hematinic deficiencies etc. that may be contributing to his anemia. We'll recommend transfusion support as needed to maintain hemoglobin of 7 or greater and platelet count of 30,000 or greater. Cancer associated abdominal pain: Likely related to burden of malignancy. He's not had a bowel movement in the last few days. Per patient, his pain is not controlled with PRN [place]. Please consider starting patient on a combination of long and short-acting morphine orally to optimize his pain control. We'll also consider adding a bowel regimen to reduce risk 4. Induced constipation. We'll follow the patient along side you during this hospitalization but please do not hesitate to call regarding interval hematologic questions as they arise. Thank you for your excellent ongoing care for allowing us to see him while in- house. - Constitutional Vitals: Vital Signs Temp Pulse Resp BP Pulse Ox 11/11/16 07:34 98.2 F 123 20 122/74 91 11/11/16 04:26 18 92 11/11/16 04:20 98.3 F 121 19 130/76 92 11/10/16 23:50 98.3 F 127 23 130/72 91 11/10/16 22:15 18 90 11/10/16 19:39 98.2 F 116 20 137/76 91 11/10/16 15:50 18 120/73 94 11/10/16 15:38 98.1 F 108 17 120/73 93 11/10/16 11:28 98.0 F 101 15 138/75 97 11/10/16 09:33 18 138/75 90 Intake and Output 11/10/16 11/11/16 11/11/16 16:59 00:59 08:59 Intake Total 1300 / 1300 1050 / 1050 500 / 500 Output Total 375 / 375 600 / 600 300 / 300 Balance 925 / 925 450 / 450 200 / 200 Intake: IV Fluids 1000 / 1000 350 / 350 500 / 500 0.9 % Sodium Chloride 1, 1000 / 1000 000 ML @ 75 mls/hr IVC . [id number] [facility] Rx#: [id number] 0.9 % Sodium Chloride 500 500 / 500 ML @ 1875 mls/hr IVC . Q16M ONE Rx#:[id number] Maxipime 2,000 MG In 100 / 100 Dextrose 5% (Minibag+) 100 ML 100 ML @ 200 mls/ hr IVPB Q12HR [facility] Rx#: [id number] Vancocin 1,250 MG In 250 / 250 Dextrose 5% 250 ML @ 166. 67 mls/hr IVPB Q24H [facility] Rx#:[id number] Oral 300 / 300 700 / 700 0 / 0 Output: Urine 375 / 375 600 / 600 300 / 300 Other: Meal Lunch Percent of Meal Consumed 20% Stool Size Moderate Stool Consistency soft Stool Characteristics Normal for Patient Stool Color Brown Weight 61.8 kg 62.8 kg Blood Glucose* 109 101 Patient Weight 11/12/16 00:59 Weight 62.8 kg Oncology: Obj Data - Labs CBC & Chem 7: 11/11/16 06:40 11/11/16 06:40 Labs: Laboratory Results - last 24 hr 11/09/16 11/10/16 11/10/16 20:25 07:03 11:29 WBC RBC Hgb Hct MCV MCH MCHC RDW Plt Count MPV Immature Gran % Seg Neutrophils % Lymphocytes % Monocytes % Eosinophils % Basophils % Neutrophils # Lymphocytes # Monocytes # Eosinophils # Basophils # Sodium Potassium Chloride Carbon Dioxide BUN Creatinine Est GFR ( Amer) Est GFR (Non-Af Amer) BUN/Creatinine Ratio Glucose POC Glucose 93 H 104 H 100 H Calculated Osmolality Calcium Phosphorus Magnesium Total Bilirubin AST ALT Alkaline Phosphatase Serum Total Protein Albumin Globulin Albumin/Globulin Ratio Stool Occult Blood Vancomycin Trough 11/10/16 11/11/16 11/11/16 12:14 06:40 06:40 WBC 11.5 H RBC 3.59 L Hgb 10.9 L Hct 33.2 L MCV 92.5 MCH 30.4 MCHC 32.8 RDW 16.6 H Plt Count 235 MPV 10.0 Immature Gran % 0.7 Seg Neutrophils % 90.7 Lymphocytes % 6.6 Monocytes % 1.8 Eosinophils % 0.1 Basophils % 0.1 Neutrophils # 10.4 H Lymphocytes # 0.8 Monocytes # 0.2 Eosinophils # 0.0 Basophils # 0.0 Sodium Potassium Chloride Carbon Dioxide BUN Creatinine Est GFR ( Amer) Est GFR (Non-Af Amer) BUN/Creatinine Ratio Glucose POC Glucose Calculated Osmolality Calcium Phosphorus Magnesium Total Bilirubin AST ALT Alkaline Phosphatase Serum Total Protein Albumin Globulin Albumin/Globulin Ratio Stool Occult Blood Negative Vancomycin Trough 18.7 11/11/16 11/11/16 06:40 07:39 WBC RBC Hgb Hct MCV MCH MCHC RDW Plt Count MPV Immature Gran % Seg Neutrophils % Lymphocytes % Monocytes % Eosinophils % Basophils % Neutrophils # Lymphocytes # Monocytes # Eosinophils # Basophils # Sodium 134 L Potassium 5.3 H Chloride 106 Carbon Dioxide 21 BUN 28 H Creatinine 0.90 Est GFR ( Amer) > 60 Est GFR (Non-Af Amer) > 60 BUN/Creatinine Ratio 31 H Glucose 70 POC Glucose 82 Calculated Osmolality 282 Calcium 8.4 L Phosphorus 2.7 Magnesium 1.8 Total Bilirubin 3.9 H AST 234 H ALT 144 H Alkaline Phosphatase 567 H Serum Total Protein 5.3 L Albumin 1.9 L Globulin 3.4 Albumin/Globulin Ratio 0.6 L Stool Occult Blood Vancomycin Trough - ABG Interpretation ABG results: PT/INR, D-dimer PT 12.2 Seconds (9.4-12.1) H 11/06/16 18:06 Consult Discharge Plan - Plan [facility]errals[facility] [Primary Care Provider] -
[2016-11-11] MEDS ORDERED: Sennosides 8.6 MG TABLET PO PRN (08:37)
[2016-11-11] MEDS: Budesonide/Formoterol 160/4.5 MDI IH SCH ×2 (09:25→21:48)
[2016-11-11 09:34] LABS: Immature Reticulocyte % 7.6 % (11.0-38.0); Retculocyte # 0.05 M/mcL (0.05-0.10); Reticulocyte % 1.4 % (1.6-2.8)
[2016-11-11] MEDS: Tiotropium 18 MCG inhalation IH SCH (09:34)
[2016-11-11] MEDS: Vancomycin 1,250 MG in D5% in Water 250 ML IVPB SCH (10:09)
[2016-11-11 11:35] LABS: % Iron Saturation 21 % (20-55); Iron 41 mcg/dL (65-175); Transferrin 138 mg/dL (174-364)
[2016-11-11 11:51] LABS: Ferritin 1554 ng/ml (22-275)
[2016-11-11 12:05] LABS: Folate 5.4 ng/mL (7.0-31.4); Vitamin B12 > 2000 pg/mL (213-816)
[2016-11-11 12:13] LABS: Lactate Dehydrogenase > 3325 Units/L (159-327)
[2016-11-11] MEDS: 0.9 % Sodium Chloride 1,000 ML IVC SCH (17:26)
[2016-11-11] MEDS ORDERED: *HR* Metoprolol 5 MG/5 ML VIAL IVP ONE (22:06)
[2016-11-12] MEDS: Levalbuterol 1 PUFF INHALER IH SCH ×2 (03:42→11:21)
[2016-11-12] MEDS: Ipratropium/Albuterol Neb 3 ML IH PRN (03:46)
[2016-11-12 03:47] LABS: Hematocrit 29.9 % (37.5-50.1); Hemoglobin 9.8 g/dL (12.9-16.9); Mean Corpuscular HGB Conc 32.8 g/dL (31.6-35.5); Mean Corpuscular Hemoglobin 30.3 pg (28.0-33.3); Mean Corpuscular Volume 92.6 fL (83.0-100.0); Mean Platelet Volume 9.8 fL (9.4-12.4); Platelet Count 184 K/mcL (140-400); Red Blood Count 3.23 M/mcL (4.19-5.50)
[2016-11-12 04:01] LABS: Alanine Aminotransferase 111 Units/L (0-55); Albumin/Globulin Ratio 0.5 (1.1-2.2); Alkaline Phosphatase 509 Units/L (38-126); Aspartate Amino Transferase 186 Units/L (5-34); BUN/Creatinine Ratio 30 (6-26); Bilirubin,Total 3.5 mg/dL (0.2-1.2); Blood Urea Nitrogen 37 mg/dL (8-26); Calcium 8.7 mg/dL (8.6-10.8); Carbon Dioxide 20 mEq/L (19-29); Chloride 107 mEq/L (98-109); Globulin 3.5 g/dL (2.4-3.5); Glucose 70 mg/dL (70-99); Osmolality,Calculated 285 (280-300); Potassium 5.4 mEq/L (3.5-4.5); Sodium 134 mEq/L (136-145); Total Protein 5.2 g/dL (6.0-8.3); eGFR For African Americans > 60 (> 60); eGFR For Non-African Americans 58 (> 60)
[2016-11-12 04:07] LABS: Albumin 1.7 g/dL (3.5-5.0)
[2016-11-12 04:20] LABS: Anisocytosis 1+ (Not Present); Eosinophils # 0.2 K/mcL (0.0-0.6); Lymphocytes # 0.2 K/mcL (0.6-4.6); Monocytes # 0.4 K/mcL (0.0-1.3); Neutrophils # 8.4 K/mcL (1.6-8.9); Platelet Estimate Normal (Normal)
[2016-11-12] MEDS: *HR* Enoxaparin 40 MG/0.4 ML SYRINGE SQ SCH (05:28)
[2016-11-12] MEDS: 0.9 % Sodium Chloride 1,000 ML IVC SCH ×3 (05:28→22:01)
[2016-11-12] MEDS: Cefepime HCl 2,000 MG in D5% in Water (Mini-Bag+) 100 ML IVPB SCH ×2 (05:29→18:33)
--- NOTE | 2016-11-12 07:52 | Internal Med Progress Note ---
<Leann Espinoza - Last Filed: 11/12/16 10:53> Date of Encounter: 11/12/16 Time of Encounter: 07:51 - Assessment and plan (1) Metastatic malignant neuroendocrine tumor to liver Current Visit: Yes Status: Acute Assessment and plan: Liver, biopsy: Positive for carcinoma with neuroendocrine features, This tumor is aggressive and behaving clinically like small cell carcinoma. Multiple liver metastasis with hepatomegaly. Started palliative chemotherapy per oncology recommendations: Cycle 1 day 5 of cisplatin plus etoposide regimen today. He received 2 days of etoposide for better tolerability. Has tolerated treatment relatively well. No unexpected side effects Continue Allopurinol 200 mg by mouth at bedtime CT abdomen and pelvis with oral contrast shows no changes in liver mets, no evidence of obstruction. Palliative care following He is at high risk for tumor lysis syndrome. He remains at risk for nausea/ vomiting/mucositis/cytopenias related to recent chemotherapy with greatest risk between 5 and 10 days posttreatment. Patient has not had good pain control with norco, is using 30mg daily Plan: -Monitor potassium and phosphorous levels. -Continue IV hydration -Will add MS contin 15mg BID to equal norco dosing he has been utilizing, will keep prn morphine until ms contin dose has stabilized. (2) Abdominal pain Current Visit: Yes Status: Acute Assessment and plan: Sharp abdominal pain localized to the right upper quadrant and epigastric region likely related to burden of malignancy. CT abdomen and pelvis reveals Diffuse hepatic metastatic disease. repeatCT abdomen and pelvis unchanged from prior Plan: per above Palliative care following Qualifiers: Abdominal location: right upper quadrant Qualified Code(s): R10.11 - Right upper quadrant pain (3) Severe sepsis Current Visit: Yes Status: Resolved Assessment and plan: Severe sepsis secondary to pneumonia present on admission. Met Severe sepsis criteria with tachycardia heart rate 129, tachypnea RR 24, white blood count 19.2, right lower lobe pneumonia source of infection, Lactic acidosis 2.7, which has resolved. Blood cultures show no growth. Patient has been tachycardic in the 150's-160's this AM with uncontrolled pain. Afebrile, WBC 9.1. Suspect tachycardia secondary to pain, will monitor HR response to pain control and consider increasing Toprol to 75mg daily for better rate control. Plan: -Continue IV fluids -Continue Vanc ( Day 7) and Cefepime (Day 6) for total of 10 days to treat hospital-acquired PNA (4) Acute kidney injury Current Visit: Yes Status: Resolved Assessment and plan: Prerenal JEWEL secondary to dehydration. Patient has high-risk for tumor lysis syndrome. Plan: -Continue IV fluids at 75 mL/hr -Continue to monitor (5) Pneumonia Current Visit: Yes Status: Acute Assessment and plan: CT chest shows Right lower lobe infiltrate concerning for pneumonia. Leukocytosis resolved Plan: -Continue antibiotic coverage with cefepime (Day 6) and vancomycin (Day 7) Qualifiers: Pneumonia type: due to unspecified organism Laterality: right Lung location: lower lobe of lung Qualified Code(s): J18.1 - Lobar pneumonia, unspecified organism (6) COPD without exacerbation Current Visit: Yes Status: Chronic Assessment and plan: Patient wears baseline 2 L supplemental oxygen via nasal cannula at home Plan: -Continue home prednisone 10 mg by mouth daily -Continue duo nebs as scheduled (7) Hypercalcemia Current Visit: Yes Status: Resolved Assessment and plan: Elevated calcium is likely related to his cancer (8) Hyperkalemia Current Visit: Yes Status: Acute Assessment and plan: He is at high risk for tumor lysis syndrome. Currently 5.4 Plan: -Continue to monitor (9) Hyponatremia Current Visit: Yes Status: Acute Assessment and plan: Na 134 Plan: -Continue IV hydration. -Continue to monitor (10) Hypomagnesemia Current Visit: Yes Status: Resolved Assessment and plan: Continue to monitor (11) Tumor-induced hypophosphatemia Current Visit: Yes Status: Resolved Assessment and plan: Continue to monitor, patient is high risk for tumor lysis syndrome (12) Lung nodules Current Visit: Yes Status: Acute Assessment and plan: CT chest revealed lower lobe infiltrate with masslike appearance which could be malignant infiltrate. He was evaluated by Dr. Butler and had a bronchoscopy around 02/08/2015. It showed benign-looking narrowing in the bronchus mainly left upper lobe. Biopsy of the left upper lobe area showed atypical squamous cells and biopsy showed dysplastic squamous cells. Thoracic surgery [facility] recommended conservative management with repeat CAT scan. Continued chemotherapy as above Oncology following (13) Anemia Current Visit: Yes Status: Chronic Assessment and plan: Predates chemotherapy. Hematology/oncology recommends transfusion support as needed to maintain hemoglobin of 7 or greater and platelet count of 30,000 or greater. Normocytic Anemia in the setting of chronic disease with folate deficiency. Plan: -Will monitor H/H -Folic acid supplements Qualifiers: Anemia type: folate deficiency Folate deficiency anemia type: unspecified folate deficiency Qualified Code(s): D52.9 - Folate deficiency anemia, unspecified (14) DVT prophylaxis Current Visit: Yes Status: Acute Assessment and plan: Lovenox - Subjective Interval history: Patient seen and examined. He complains of severe back pain and that he is unable to find a comfortable position. Per patient he has some CP, diffuse abdominal pain and severe back pain. He also states he has not slept well and has been awake since 0300. He denies a BM or SOB. Per RN the patient seems more confused compared to yesterday and tachycardic. - Constitutional Vitals: Temp Pulse Resp BP Pulse Ox 98.0 F 120 16 124/73 94 11/12/16 07:09 11/12/16 07:09 11/12/16 07:09 11/12/16 07:09 11/12/16 07:09 General appearance: Present: cachectic, cooperative, disheveled, mild distress, pleasant, underweight, answers questions appropriately - Head Head exam: Present: atraumatic, normocephalic - Respiratory Respiratory exam: Present: rales. Absent: accessory muscle use, respiratory distress, stridor - Cardiovascular Cardiovascular exam: Present: tachycardia - GI/Abdominal GI/Abdominal exam: Present: firm, hepatomegaly, hypoactive bowel sounds, tenderness (RUQ) - Extremities Exam Extremities exam: Present: normal capillary refill, normal inspection, radial pulses palpable and symetrical. Absent: calf tenderness, pedal edema, tenderness - Back Exam Back exam: Present: normal inspection, tenderness. Absent: rash noted - Expanded Neurological Exam Patient oriented to: Present: person. Absent: place, time Speech: Present: fluid speech Coma Scale Eye Opening: Spontaneous Coma Scale Motor Response: Obeys Commands Coma Scale Verbal Response: Confused Coma Scale Total: 14 - Psychiatric Psychiatric exam: Present: agitated, anxious - Skin Skin exam: Present: dry, intact, normal color, warm. Absent: diaphoretic, erythema, rash Internal Medicine: Result - Labs CBC & Chem 7: 11/12/16 03:22 11/12/16 03:22 Labs: Short CBC 11/12/16 Range/Units 03:22 WBC 9.1 (4.3-11.1) K/mcL Hgb 9.8 L (12.9-16.9) g/dL Hct 29.9 L (37.5-50.1) % Plt Count 184 (140-400) K/mcL Neutrophils # 8.4 (1.6-8.9) K/mcL BMP 11/11/16 11/12/16 06:40 03:22 Sodium 134 L 134 L Potassium 5.3 H 5.4 H Chloride 106 107 Carbon Dioxide 21 20 BUN 28 H 37 H Creatinine 0.90 1.25 Glucose 70 70 Calcium 8.4 L 8.7 Cardiac Enzymes 11/11/16 Range/Units 22:36 Troponin I 0.01 (0-0.03) ng/mL Liver Function 11/11/16 11/12/16 Range/Units 06:40 03:22 Total Bilirubin 3.9 H 3.5 H (0.2-1.2) mg/dL AST 234 H 186 H (5-34) Units/L ALT 144 H 111 H (0-55) Units/L Alkaline Phosphatase 567 H 509 H (38-126) Units/L Albumin 1.9 L 1.7 L (3.5-5.0) g/dL - ABG Interpretation ABG results: PT/INR, D-dimer PT 12.2 Seconds (9.4-12.1) H 11/06/16 18:06 - Impressions Impressions Abdomen/Pelvis CT 11/11/16 09:59 IMPRESSION: 1. No acute intra-abdominal or intrapelvic process. No significant interval change. 2. Extensive hepatic metastases unchanged from the previous exam. 3. New small bilateral pleural effusions have developed with bibasilar atelectasis of unclear etiology. 4. Stable abdominal aortic aneurysm measuring 4.6 cm. 5. Distended urinary bladder of questionable clinical significance. Correlation with urine output recommended. 6. Stable compression deformities in the upper and mid lumbar spine. D/ / Srinath Rivera MD / Srinath Rivera MD Interpreting Provider: Srinath Rivera MD - Diagnostic Studies CT scan - abdomen Status: image reviewed by me Additional comments: Consult Discharge Plan - Plan Referrals: [place],PCP [Primary Care Provider] - 11/15/16 3:30 pm <M[facility] Eric P - Last Filed: 11/12/16 18:34> Date of Encounter: 11/12/16 - Constitutional Vitals: Temp Pulse Resp BP Pulse Ox 98.1 F 13 16 105/64 95 11/12/16 16:45 11/12/16 16:45 11/12/16 16:59 11/12/16 16:45 11/12/16 16:59 Internal Medicine: Result - Labs CBC & Chem 7: 11/12/16 03:22 11/12/16 03:22 Labs: Short CBC 11/12/16 Range/Units 03:22 WBC 9.1 (4.3-11.1) K/mcL Hgb 9.8 L (12.9-16.9) g/dL Hct 29.9 L (37.5-50.1) % Plt Count 184 (140-400) K/mcL Neutrophils # 8.4 (1.6-8.9) K/mcL BMP 11/12/16 03:22 Sodium 134 L Potassium 5.4 H Chloride 107 Carbon Dioxide 20 BUN 37 H Creatinine 1.25 Glucose 70 Calcium 8.7 Cardiac Enzymes 11/11/16 Range/Units 22:36 Troponin I 0.01 (0-0.03) ng/mL Liver Function 11/12/16 Range/Units 03:22 Total Bilirubin 3.5 H (0.2-1.2) mg/dL AST 186 H (5-34) Units/L ALT 111 H (0-55) Units/L Alkaline Phosphatase 509 H (38-126) Units/L Albumin 1.7 L (3.5-5.0) g/dL - ABG Interpretation ABG results: PT/INR, D-dimer PT 12.2 Seconds (9.4-12.1) H 11/06/16 18:06 - Attending Attestation I examined this patient and my medical decision-making was reviewed with the Resident Physician. I agree with the documented findings, disposition and treatment plan as described except to the extent set forth below.
[2016-11-12] MEDS: Metoprolol XL (24 HR) Succ 50 MG TAB.ER.24H PO SCH (08:34)
[2016-11-12] MEDS: Vancomycin 1,250 MG in D5% in Water 250 ML IVPB SCH (08:35)
[2016-11-12] MEDS ORDERED: *HR* Morphine 2 MG/ML SYRINGE IVP PRN (08:45)
[2016-11-12] MEDS: *HR* HYDROcodone/Acet 5/325 mg TABLET PO PRN (08:50)
[2016-11-12] MEDS: predniSONE 10 MG TABLET PO SCH (08:52)
[2016-11-12] MEDS: Lidocaine 4% CREAM (LMX) 5 GM TP SCH ×2 (08:52→22:00)
[2016-11-12] MEDS: Gabapentin 100 MG CAPSULE PO SCH ×4 (08:52→22:00)
--- NOTE | 2016-11-12 09:10 | Oncology Inp Progress Note ---
Date of Encounter: 11/12/16 Time of Encounter: 08:53 (1) Metastatic malignant neuroendocrine tumor to liver Current Visit: Yes Status: Acute Assessment and plan: Currently on cycle 1 day 5 of cisplatin plus etoposide regimen ( modified regimen: 2 days for better tolerability). He does not seem to be experiencing grade 3-4 side effects related to chemotherapy, but remains quite symptomatic, more likely as the result of his metastatic neuroendocrine tumor involving his liver causing pain. His confusion could be due to medication side effects, although mental status secondary to liver dysfunction or sepsis is another possibility. Overall his prognosis remains poor. His CT abdomen from 11/11 revealed unchanged metastatic lesions, although it may be too early to assess for response. - At this I would recommend to continue inpatient care, for close monitoring in view of his mental status changes, liver dysfunction ,uncontrolled pain and persistent tachycardia. Once these medical issues have been controlled, discharge either to SNF rehab or home will be considered. - Down the road, if his condition improves and he is medically cleared for discharge, a short follow up with medical oncology needs to be scheduled for a toxicity evaluation and to plan cycle 2 of cisplatin/etoposide ( 21 days cycle). (2) Cancer associated pain Current Visit: Yes Status: Acute Assessment and plan: Currently his pain is uncontrolled, what could be contributing to his poor performance status. - Apparently poor response to PO narcotics. I would appreciate palliative care input. (3) Anemia Current Visit: No Status: Acute Assessment and plan: - There is a small drop in his hemoglobin values, probably as the result of recent chemotherapy administration. His marked elevated LDH is probably the result of liver dysfunction. Clinically picture more likely not consistent with hemolysis, in view of low-normal reticulocyte count. - Iron panel suggestive of anemia of acute illness/inflammation. - Folate levels found low. Please replace it with 1 mg PO daily ( or IV if po is not tolerated). - Please order duplicated blood smear. Qualifiers: Anemia type: unspecified type Qualified Code(s): D64.9 - Anemia, unspecified (4) Liver lesion Current Visit: Yes Status: Acute Assessment and plan: There is associated liver dysfunction, probably as the results of his multiple metastatic liver lesions (CT from 11/11 did not report biliary obstruction) - Check direct and indirect bilirrubin. Oncology: Subj Interval history: Mr. Vega is confused and unable to provide a detailed history. He was seen with his nurse at the bedsideHe is oriented x 1, complaining of persistent right upper quadrant abdominal pain. He reports that he lives with his around 15 miles away from here. He reports having 2 adult children in the 40s. However he was disoriented by place and date. He received norco last night with poor improvement of his pain. He has not eaten breakfast yet, but reports poor appetite. Denies nausea, diarrhea. No fever overnight. - Constitutional Vitals: Vital Signs Temp Pulse Resp BP Pulse Ox 11/12/16 07:09 98.0 F 120 16 124/73 94 11/12/16 04:14 97.4 F L 122 26 123/70 94 11/12/16 03:48 18 90 11/12/16 00:18 97.8 F 114 16 119/61 94 11/11/16 21:41 20 97 11/11/16 20:57 97.9 F 126 17 134/64 93 11/11/16 16:49 98.5 F 105 20 108/58 93 11/11/16 15:50 18 103/57 94 11/11/16 11:58 99.1 F 100 18 103/57 95 11/11/16 10:10 98.8 F 107 18 101/64 94 11/11/16 09:23 18 101/64 92 11/11/16 09:10 98.2 F 111 19 98/61 92 Intake and Output 11/11/16 11/12/16 11/12/16 23:59 07:59 15:59 Intake Total 450 / 450 1450 / 1450 Output Total 500 / 500 650 / 650 Balance -50 / -50 800 / 800 Intake: IV Fluids 450 / 450 1000 / 1000 0.9 % Sodium Chloride 1, 1000 / 1000 000 ML @ 75 mls/hr IVC . [id number] [facility] Rx#: [id number] Maxipime 2,000 MG In 200 / 200 Dextrose 5% (Minibag+) 100 ML 100 ML @ 200 mls/ hr IVPB Q12HR [facility] Rx#: [id number] Vancocin 1,250 MG In 250 / 250 Dextrose 5% 250 ML @ 166. 67 mls/hr IVPB Q24H [facility] Rx#:[id number] Oral 0 / 0 450 / 450 Output: Urine 650 / 650 Catheter 500 / 500 Other: Blood Glucose* 101 97 General appearance: thin - Head Head exam: Present: normal inspection - Eye Eye exam: Present: EOMI - ENT ENT exam: Present: normal oropharynx - Neck Neck exam: Present: normal inspection - Respiratory Respiratory exam: Present: CTAB - Cardiovascular Cardiovascular exam: Present: tachycardia - GI/Abdominal GI/Abdominal exam: Present: tenderness Additional comments: Right upper quadrant tenderness. No rebound tenderness. - Extremities Exam Extremities exam: Present: normal inspection - Neurological Exam Neurological exam: Present: no focal deficits Additional comments: Confused, oriented x 1 - Psychiatric Psychiatric exam: Present: anxious - Skin Skin exam: Present: pallor Oncology: Obj Data - Labs CBC & Chem 7: 11/12/16 03:22 11/12/16 03:22 Labs: Laboratory Results - last 24 hr 11/10/16 11/10/16 11/11/16 16:41 20:28 09:22 WBC RBC Hgb Hct MCV MCH MCHC RDW Plt Count MPV Reticulocyte # 0.05 Seg Neutrophils % Band Neutrophils % Lymphocytes % Monocytes % Eosinophils % Neutrophils # Lymphocytes # Monocytes # Eosinophils # Platelet Estimate Anisocytosis Percent Retic 1.4 L Immature Retic Fraction 7.6 L Retic Hgb Equivalent 33.2 Sodium Potassium Chloride Carbon Dioxide BUN Creatinine Est GFR ( Amer) Est GFR (Non-Af Amer) BUN/Creatinine Ratio Glucose POC Glucose 109 H 101 H Calculated Osmolality Calcium Iron % Saturation Transferrin Ferritin Total Bilirubin AST ALT Alkaline Phosphatase Lactate Dehydrogenase Troponin I Serum Total Protein Albumin Globulin Albumin/Globulin Ratio Vitamin B12 Folate 11/11/16 11/11/16 11/11/16 09:22 09:22 10:35 WBC RBC Hgb Hct MCV MCH MCHC RDW Plt Count MPV Reticulocyte # Seg Neutrophils % Band Neutrophils % Lymphocytes % Monocytes % Eosinophils % Neutrophils # Lymphocytes # Monocytes # Eosinophils # Platelet Estimate Anisocytosis Percent Retic Immature Retic Fraction Retic Hgb Equivalent Sodium Potassium Chloride Carbon Dioxide BUN Creatinine Est GFR ( Amer) Est GFR (Non-Af Amer) BUN/Creatinine Ratio Glucose POC Glucose 87 Calculated Osmolality Calcium Iron 41 L % Saturation 21 Transferrin 138 L Ferritin 1554 H Total Bilirubin AST ALT Alkaline Phosphatase Lactate Dehydrogenase > 3325 H Troponin I Serum Total Protein Albumin Globulin Albumin/Globulin Ratio Vitamin B12 > 2000 H Folate 5.4 L 11/11/16 11/11/16 11/11/16 16:20 21:06 22:36 WBC RBC Hgb Hct MCV MCH MCHC RDW Plt Count MPV Reticulocyte # Seg Neutrophils % Band Neutrophils % Lymphocytes % Monocytes % Eosinophils % Neutrophils # Lymphocytes # Monocytes # Eosinophils # Platelet Estimate Anisocytosis Percent Retic Immature Retic Fraction Retic Hgb Equivalent Sodium Potassium Chloride Carbon Dioxide BUN Creatinine Est GFR ( Amer) Est GFR (Non-Af Amer) BUN/Creatinine Ratio Glucose POC Glucose 80 101 H Calculated Osmolality Calcium Iron % Saturation Transferrin Ferritin Total Bilirubin AST ALT Alkaline Phosphatase Lactate Dehydrogenase Troponin I 0.01 Serum Total Protein Albumin Globulin Albumin/Globulin Ratio Vitamin B12 Folate 11/12/16 11/12/16 11/12/16 03:22 03:22 07:13 WBC 9.1 RBC 3.23 L Hgb 9.8 L Hct 29.9 L MCV 92.6 MCH 30.3 MCHC 32.8 RDW 17.0 H Plt Count 184 MPV 9.8 Reticulocyte # Seg Neutrophils % 90.0 Band Neutrophils % 2.0 Lymphocytes % 2.0 Monocytes % 4.0 Eosinophils % 2.0 Neutrophils # 8.4 Lymphocytes # 0.2 L Monocytes # 0.4 Eosinophils # 0.2 Platelet Estimate Normal Anisocytosis 1+ A Percent Retic Immature Retic Fraction Retic Hgb Equivalent Sodium 134 L Potassium 5.4 H Chloride 107 Carbon Dioxide 20 BUN 37 H Creatinine 1.25 Est GFR ( Amer) > 60 Est GFR (Non-Af Amer) 58 L BUN/Creatinine Ratio 30 H Glucose 70 POC Glucose 97 H Calculated Osmolality 285 Calcium 8.7 Iron % Saturation Transferrin Ferritin Total Bilirubin 3.5 H AST 186 H ALT 111 H Alkaline Phosphatase 509 H Lactate Dehydrogenase Troponin I Serum Total Protein 5.2 L Albumin 1.7 L Globulin 3.5 Albumin/Globulin Ratio 0.5 L Vitamin B12 Folate - Impressions Impressions Abdomen/Pelvis CT 11/11/16 09:59 IMPRESSION: 1. No acute intra-abdominal or intrapelvic process. No significant interval change. 2. Extensive hepatic metastases unchanged from the previous exam. 3. New small bilateral pleural effusions have developed with bibasilar atelectasis of unclear etiology. 4. Stable abdominal aortic aneurysm measuring 4.6 cm. 5. Distended urinary bladder of questionable clinical significance. Correlation with urine output recommended. 6. Stable compression deformities in the upper and mid lumbar spine. D/ / Srinath Rivera MD / Srinath Rivera MD Interpreting Provider: Srinath Rivera MD - ABG Interpretation ABG results: PT/INR, D-dimer PT 12.2 Seconds (9.4-12.1) H 11/06/16 18:06 Consult Discharge Plan - Plan Referrals: [facility] [Primary Care Provider] -
[2016-11-12] MEDS: *HR* Morphine Sulfate SR (12 HR) 15 MG TABLET.ER PO SCH ×2 (10:52→22:00)
[2016-11-12] MEDS: Budesonide/Formoterol 160/4.5 MDI IH SCH (11:21)
[2016-11-12] MEDS: Tiotropium 18 MCG inhalation IH SCH (11:21)
[2016-11-12] MEDS: Folic Acid 1 MG TABLET PO SCH (12:39)
--- NOTE | 2016-11-12 16:06 | Palliative Progress Note ---
Date of Encounter: 11/12/16 Time of Encounter: 16:00 - Assessment and plan (1) Cancer associated pain Current Visit: Yes Status: Acute Assessment and plan: He has been started on MS Contin 15mg by hospitalist. Monitor He only has used [place] x1 11/11 and X1 this am (11/12). MOnitor (2) Nausea & vomiting Current Visit: Yes Status: Acute Assessment and plan: continue antiemetics. Has not utilized in a couple of days. Monitor Qualifiers: Vomiting type: unspecified Vomiting Intractability: unspecified Qualified Code(s): R11.2 - Nausea with vomiting, unspecified (3) Generalized weakness Current Visit: Yes Status: Acute Assessment and plan: PT/OT consult and review recommendations for possible rehab need. (4) Counseling regarding advanced care planning and goals of care Current Visit: Yes Status: Acute Assessment and plan: Girlfriend at bedside. Discussed possible need for rehab on d/c. She would either prefer [place] or [facility]. VALENTE to meet with her tomorrow after therapy consult. He is too drowsy again today to discuss code status. Will try again tomorrow afternoon. Joana to arrive around 1300 and will discuss at that time, along with d/c plan. (5) Metastatic malignant neuroendocrine tumor to liver Current Visit: Yes Status: Acute - Time Spent With Patient Total time spent is greater than 50% in coordination of care (as documented) at patient's floor/unit and/or counseling patient: 25 - 35 minutes - Subjective Interval history: Patient remains very somulent - awakens but falls back to sleep during conversation. Girlfriend at bedside. - Constitutional Vitals: Abnormal lab results RBC 3.23 M/mcL (4.19-5.50) L 11/12/16 03:22 Hgb 9.8 g/dL (12.9-16.9) L 11/12/16 03:22 Hct 29.9 % (37.5-50.1) L 11/12/16 03:22 RDW 17.0 % (11.5-14.5) H 11/12/16 03:22 Lymphocytes # 0.2 K/mcL (0.6-4.6) L 11/12/16 03:22 Anisocytosis 1+ (Not Present) A 11/12/16 03:22 Percent Retic 1.4 % (1.6-2.8) L 11/11/16 09:22 Immature Retic Fraction 7.6 % (11.0-38.0) L 11/11/16 09:22 PT 12.2 Seconds (9.4-12.1) H 11/06/16 18:06 Sodium 134 mEq/L (136-145) L 11/12/16 03:22 Potassium 5.4 mEq/L (3.5-4.5) H 11/12/16 03:22 BUN 37 mg/dL (8-26) H 11/12/16 03:22 Est GFR (Non-Af Amer) 58 (> 60) L 11/12/16 03:22 BUN/Creatinine Ratio 30 (6-26) H 11/12/16 03:22 POC Glucose 115 (58-89) H 11/12/16 11:33 Uric Acid < 1.0 mg/dL (3.5-7.2) L D 11/09/16 02:41 Iron 41 mcg/dL (65-175) L 11/11/16 09:22 Transferrin 138 mg/dL (174-364) L 11/11/16 09:22 Ferritin 1554 ng/ml (22-275) H 11/11/16 09:22 Total Bilirubin 3.5 mg/dL (0.2-1.2) H 11/12/16 03:22 Direct Bilirubin 1.4 mg/dL (0.0-0.5) H 11/06/16 17:15 AST 186 Units/L (5-34) H 11/12/16 03:22 ALT 111 Units/L (0-55) H 11/12/16 03:22 Alkaline Phosphatase 509 Units/L (38-126) H 11/12/16 03:22 Lactate Dehydrogenase > 3325 Units/L (159-327) H 11/11/16 09:22 Creatine Kinase 468 Units/L (30-200) H 11/06/16 18:06 Serum Total Protein 5.2 g/dL (6.0-8.3) L 11/12/16 03:22 Albumin 1.7 g/dL (3.5-5.0) L 11/12/16 03:22 Albumin/Globulin Ratio 0.5 (1.1-2.2) L 11/12/16 03:22 Vitamin B12 > 2000 pg/mL (213-816) H 11/11/16 09:22 Folate 5.4 ng/mL (7.0-31.4) L 11/11/16 09:22 Urine Protein 30 mg/dL (Neg-Trace) H 11/07/16 00:22 Urine Ketones 15 mg/dL (Negative) H 11/07/16 00:22 General appearance: Present: no acute distress - Respiratory Respiratory exam: Present: decreased breath sounds, CTAB Additional comments: Crackles in bases. - Cardiovascular Cardiovascular exam: Present: +S1, +S2 - GI/Abdominal GI/Abdominal exam: Present: normal bowel sounds, soft - Extremities Exam Extremities exam: Present: normal capillary refill, normal inspection - Neurological Exam Neurological exam: Present: oriented X3 Additional comments: Drowsy, generalized weakness - Skin Skin exam: Present: dry, warm Palliative Quality Palliative Quality: Screen for Code Status: Yes, Screen for Goals of Care: Yes, Screen for Pain: Yes, If Pain Regimen Started, Initiate Bowel Regimen: NA ( Kayexelate inducing diarrhea), Screen for Nausea/Vomitting: Yes - Labs CBC & Chem 7: 11/12/16 03:22 11/12/16 03:22 Labs: Laboratory Results - last 24 hr 11/10/16 11/10/16 11/11/16 16:41 20:28 16:20 WBC RBC Hgb Hct MCV MCH MCHC RDW Plt Count MPV Seg Neutrophils % Band Neutrophils % Lymphocytes % Monocytes % Eosinophils % Neutrophils # Lymphocytes # Monocytes # Eosinophils # Platelet Estimate Anisocytosis Sodium Potassium Chloride Carbon Dioxide BUN Creatinine Est GFR ( Amer) Est GFR (Non-Af Amer) BUN/Creatinine Ratio Glucose POC Glucose 109 H 101 H 80 Calculated Osmolality Calcium Total Bilirubin AST ALT Alkaline Phosphatase Troponin I Serum Total Protein Albumin Globulin Albumin/Globulin Ratio 11/11/16 11/11/16 11/12/16 21:06 22:36 03:22 WBC 9.1 RBC 3.23 L Hgb 9.8 L Hct 29.9 L MCV 92.6 MCH 30.3 MCHC 32.8 RDW 17.0 H Plt Count 184 MPV 9.8 Seg Neutrophils % 90.0 Band Neutrophils % 2.0 Lymphocytes % 2.0 Monocytes % 4.0 Eosinophils % 2.0 Neutrophils # 8.4 Lymphocytes # 0.2 L Monocytes # 0.4 Eosinophils # 0.2 Platelet Estimate Normal Anisocytosis 1+ A Sodium Potassium Chloride Carbon Dioxide BUN Creatinine Est GFR ( Amer) Est GFR (Non-Af Amer) BUN/Creatinine Ratio Glucose POC Glucose 101 H Calculated Osmolality Calcium Total Bilirubin AST ALT Alkaline Phosphatase Troponin I 0.01 Serum Total Protein Albumin Globulin Albumin/Globulin Ratio 11/12/16 11/12/16 11/12/16 03:22 07:13 11:33 WBC RBC Hgb Hct MCV MCH MCHC RDW Plt Count MPV Seg Neutrophils % Band Neutrophils % Lymphocytes % Monocytes % Eosinophils % Neutrophils # Lymphocytes # Monocytes # Eosinophils # Platelet Estimate Anisocytosis Sodium 134 L Potassium 5.4 H Chloride 107 Carbon Dioxide 20 BUN 37 H Creatinine 1.25 Est GFR ( Amer) > 60 Est GFR (Non-Af Amer) 58 L BUN/Creatinine Ratio 30 H Glucose 70 POC Glucose 97 H 115 H Calculated Osmolality 285 Calcium 8.7 Total Bilirubin 3.5 H AST 186 H ALT 111 H Alkaline Phosphatase 509 H Troponin I Serum Total Protein 5.2 L Albumin 1.7 L Globulin 3.5 Albumin/Globulin Ratio 0.5 L - ABG Interpretation ABG results: PT/INR, D-dimer PT 12.2 Seconds (9.4-12.1) H 11/06/16 18:06 Consult Discharge Plan - Plan Referrals: KATIE,PCP [Primary Care Provider] - 11/15/16 3:30 pm
[2016-11-12] MEDS: Ipratropium/Albuterol Neb 3 ML IH SCH ×2 (16:59→21:34)
--- NOTE | 2016-11-12 17:53 | Electrocardiograph Report ---
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
[2016-11-12] MEDS ORDERED: *HR* Morphine Sulfate SR (12 HR) 15 MG TABLET.ER PO SCH (18:00)
[2016-11-12] MEDS: Budesonide Neb 0.25 MG/2 ML IH SCH (21:34)
[2016-11-13] MEDS: Ipratropium/Albuterol Neb 3 ML IH SCH ×4 (04:09→22:04)
[2016-11-13] MEDS: *HR* Enoxaparin 40 MG/0.4 ML SYRINGE SQ SCH (06:35)
[2016-11-13] MEDS: Cefepime HCl 2,000 MG in D5% in Water (Mini-Bag+) 100 ML IVPB SCH ×2 (06:35→17:55)
[2016-11-13] MEDS: *HR* Morphine Sulfate SR (12 HR) 15 MG TABLET.ER PO SCH (06:36)
[2016-11-13 07:57] LABS: Basophils % 0.2 %; Eosinophils # 0.1 K/mcL (0.0-0.6); Eosinophils % 0.5 %; Hematocrit 27.1 % (37.5-50.1); Hemoglobin 8.8 g/dL (12.9-16.9); Immature Granulocytes % 6.1 % (0-4); Lymphocytes # 0.4 K/mcL (0.6-4.6); Lymphocytes % 3.9 %; Mean Corpuscular HGB Conc 32.5 g/dL (31.6-35.5); Mean Corpuscular Hemoglobin 29.7 pg (28.0-33.3); Mean Corpuscular Volume 91.6 fL (83.0-100.0); Mean Platelet Volume 10.1 fL (9.4-12.4); Monocytes # 0.1 K/mcL (0.0-1.3); Monocytes % 1.2 %; Neutrophils # 8.1 K/mcL (1.6-8.9); Platelet Count 201 K/mcL (140-400); Red Blood Count 2.96 M/mcL (4.19-5.50); Red Cell Distribution Width 17.2 % (11.5-14.5); Segmented Neutrophils % 88.1 %
[2016-11-13] MEDS ORDERED: Vancomycin 1,000 MG in D5% in Water 250 ML IVPB SCH ×2 (08:00→09:00)
[2016-11-13 08:11] LABS: Albumin/Globulin Ratio 0.4 (1.1-2.2); Bilirubin,Total 2.6 mg/dL (0.2-1.2); Globulin 3.9 g/dL (2.4-3.5); Total Protein 5.5 g/dL (6.0-8.3)
[2016-11-13 08:14] LABS: Albumin 1.6 g/dL (3.5-5.0); Platelet Estimate Normal (Normal)
[2016-11-13] MEDS ORDERED: 0.9 % Sodium Chloride 1,000 ML IVC ONE (08:29)
[2016-11-13 09:06] LABS: Uric Acid 3.8 mg/dL (3.5-7.2)
[2016-11-13] MEDS: Metoprolol XL (24 HR) Succ 50 MG TAB.ER.24H PO SCH (09:33)
[2016-11-13] MEDS: Folic Acid 1 MG TABLET PO SCH (09:33)
[2016-11-13] MEDS: Gabapentin 100 MG CAPSULE PO SCH (09:33)
[2016-11-13] MEDS: predniSONE 10 MG TABLET PO SCH (09:33)
[2016-11-13] MEDS: Lidocaine 4% CREAM (LMX) 5 GM TP SCH ×2 (09:34→20:53)
--- NOTE | 2016-11-13 09:52 | Internal Med Progress Note ---
Date of Encounter: 11/13/16 Time of Encounter: 09:52 - Assessment and plan (1) Abdominal pain Current Visit: Yes Status: Acute Assessment and plan: Secondary to malignancy Patient is lethergic this a.m and is on long acting morphine His renal function is also worse Decrease Morphine and gabapentin for now Qualifiers: Abdominal location: right upper quadrant Qualified Code(s): R10.11 - Right upper quadrant pain (2) Acute kidney injury Current Visit: Yes Status: Acute Assessment and plan: Prerenal JEWEL secondary to dehydration. Patient has high-risk for tumor lysis syndrome. Gave IVF bolus D/C Vancomycin, patient has received 8 days of therapy Kayexalate for hyperkalemia Uric acid is WNL (3) Hyperkalemia Current Visit: Yes Status: Acute Assessment and plan: Kayexalate X1 Rpt K at p.m Monitor closely (4) Pneumonia Current Visit: Yes Status: Acute Assessment and plan: CT chest shows Right lower lobe infiltrate concerning for pneumonia. Leukocytosis resolved D/C Vancomycin-8 days complete Continue Cefepime and d/c after 8 days) Qualifiers: Pneumonia type: due to unspecified organism Laterality: right Lung location: lower lobe of lung Qualified Code(s): J18.1 - Lobar pneumonia, unspecified organism (5) Metastatic malignant neuroendocrine tumor to liver Current Visit: Yes Status: Acute Assessment and plan: Liver, biopsy: Positive for carcinoma with neuroendocrine features, This tumor is aggressive and behaving clinically like small cell carcinoma. Multiple liver metastasis with hepatomegaly. Started palliative chemotherapy per oncology recommendations: Cycle 1 day 6 of cisplatin plus etoposide regimen today. He received 2 days of etoposide for better tolerability. Has tolerated treatment relatively well. No unexpected side effects Continue Allopurinol 200 mg by mouth at bedtime CT abdomen and pelvis with oral contrast shows no changes in liver mets, no evidence of obstruction. Palliative care following Patient is very ill, condition is serious Oncology is following (6) Cancer associated pain Current Visit: Yes Status: Acute (7) Tumor-induced hypophosphatemia Current Visit: Yes Status: Resolved Assessment and plan: Continue to monitor, patient is high risk for tumor lysis syndrome (8) Anemia Current Visit: Yes Status: Chronic Assessment and plan: Predates chemotherapy. Hematology/oncology recommends transfusion support as needed to maintain hemoglobin of 7 or greater and platelet count of 30,000 or greater. Normocytic Anemia in the setting of chronic disease with folate deficiency. Continue to monitor No evidence of hemolysis Qualifiers: Anemia type: folate deficiency Folate deficiency anemia type: unspecified folate deficiency Qualified Code(s): D52.9 - Folate deficiency anemia, unspecified - Subjective Interval history: Initial encounter 66 M being managed for metastatic liver CA-neuroendocrine he is receiving chemo in-patient and being followed by oncology Additional diagnoses in this admission include Pneumonia and JEWEL he is seen at bedside this morning following physical therapy he is very lethargic and is unable to hold his cup to ingest water he is on long acting morphine and gabapentin for pain He denies new complains, and could not converse much He is hemodynamically stable, however, his renal function is worse this morning compared with prior - Constitutional Vitals: Temp Pulse Resp BP Pulse Ox 98.1 F 115 18 126/68 93 11/13/16 07:09 11/13/16 07:09 11/13/16 07:09 11/13/16 07:09 11/13/16 07:09 General appearance: Present: cachectic, cooperative, mild distress, pleasant, underweight, answers questions appropriately Exam: chronically ill-looking, lethergic, mild resp distress, just finished PT VSS Neuro: Alert, but lethargic, oriented X3, moves all limbs spontaneously HEENT: Dry oral mucosa chest: CTAB anterior auscultation Heart: S1, S2 only, no m/g/r Abd: RUQ tenderness Extremities: No edema Internal Medicine: Result - Labs CBC & Chem 7: 11/13/16 07:07 11/13/16 07:07 Labs: Short CBC 11/13/16 Range/Units 07:07 WBC 9.2 (4.3-11.1) K/mcL Hgb 8.8 L (12.9-16.9) g/dL Hct 27.1 L (37.5-50.1) % Plt Count 201 (140-400) K/mcL Neutrophils # 8.1 (1.6-8.9) K/mcL BMP 11/13/16 07:07 Sodium 139 Potassium 6.0 H Chloride 112 H Carbon Dioxide 17 L BUN 57 H D Creatinine 1.65 H Glucose 79 Calcium 9.0 Liver Function 11/13/16 Range/Units 07:07 Total Bilirubin 2.6 H (0.2-1.2) mg/dL AST 147 H (5-34) Units/L ALT 83 H (0-55) Units/L Alkaline Phosphatase 445 H (38-126) Units/L Albumin 1.6 L (3.5-5.0) g/dL - ABG Interpretation ABG results: PT/INR, D-dimer PT 12.2 Seconds (9.4-12.1) H 11/06/16 18:06 Consult Discharge Plan - Plan Referrals: KATIE,PCP [Primary Care Provider] - 11/15/16 3:30 pm
[2016-11-13] MEDS ORDERED: Vancomycin 1 EACH in D5% in Water 250 ML IVPB PRN (10:15)
[2016-11-13] MEDS: Budesonide Neb 0.25 MG/2 ML IH SCH ×2 (10:50→22:04)
--- NOTE | 2016-11-13 11:22 | Oncology Inp Progress Note ---
Date of Encounter: 11/13/16 Time of Encounter: 11:16 (1) Metastatic malignant neuroendocrine tumor to liver Current Visit: Yes Status: Acute Assessment and plan: -Currently on cycle 1 day 6 of cisplatin plus etoposide regimen ( modified regimen: 2 days for better tolerability). - It's still too early to repeat imaging and assess for clinical response to recent chemotherapy, but the improvement of his bilirrubin and transaminases values is suggestive some degree of response, based on the concerns that his cholestasis is secondary to multiple liver metastasis. - There is a mild drop on his Hb levels, but otherwise not significant myelosupression. will continue monitoring his CBC daily. - His CT abdomen from 11/11 revealed unchanged metastatic lesions, although probably it was too early to assess for response. (2) Lethargy Current Visit: Yes Status: Acute Assessment and plan: - Probably secondary to opiates and/or gabapentin, in view that early in AM, it 's reported that he was awake, being able to take his tablets and eat breakfast , although another liver encephalopathy needs to be rule out. - I would suggest to discontinue or decrease gabapentin ( adjusted for current creatinine clearance); as well I would suggest to discontinue morphine, and consider a different opiate with not significant renal clearance ( e.g low dose of dilaudid PRN) after discussion with palliative care. - Check Ammonia level - Monitor LFTs daily (3) Anemia Current Visit: Yes Status: Chronic Assessment and plan: - There is a small drop in his hemoglobin values, probably as the result of recent chemotherapy administration. His marked elevated LDH is probably the result of liver dysfunction. Clinically picture more likely not consistent with hemolysis, in view of low-normal reticulocyte count. - Iron panel suggestive of anemia of acute illness/inflammation. - Continue folate replacement ( in view of low folate levels) Qualifiers: Anemia type: folate deficiency Folate deficiency anemia type: unspecified folate deficiency Qualified Code(s): D52.9 - Folate deficiency anemia, unspecified (4) Acute kidney injury Current Visit: Yes Status: Resolved Assessment and plan: Associated with hyperkalemia. Probably increasing the half life of gabapentin and morphine. - Agree with kayexolate x 1 for management of hyperkalemia. If not improvement, may consider nephrology consult. Oncology: Subj Interval history: Still experiencing intermittent episodes of lethargy. He is lethargic during the visit, but as per patient's nurse he was awake early in the morning and was able to take his medications, eat breakfast, and was engaging in conversation. He received neurontin 500 mg at 9:33 AM, MS contin 12 h tablet ( 15 mg ) at 6: 36 AM. - Constitutional Vitals: Vital Signs Temp Pulse Resp BP Pulse Ox 11/13/16 10:39 98.3 F 119 19 104/61 94 11/13/16 07:09 98.1 F 115 18 126/68 93 11/13/16 04:10 16 94 11/13/16 03:52 98.3 F 105 17 126/70 96 11/12/16 23:25 98.3 F 106 19 113/68 96 11/12/16 21:50 96 11/12/16 21:35 16 93 11/12/16 19:49 98.3 F 107 17 113/67 95 11/12/16 16:59 16 95 11/12/16 16:45 98.1 F 13 98 105/64 11/12/16 11:30 97.6 F 130 17 112/70 95 11/12/16 11:21 16 93 11/12/16 11:19 94 Intake and Output 11/12/16 11/13/16 11/13/16 23:59 07:59 15:59 Intake Total 1200 / 1200 Balance 1200 / 1200 Intake: IV Fluids 1200 / 1200 0.9 % Sodium Chloride 1, 1000 / 1000 000 ML @ 75 mls/hr IVC . [id number] GIFTY Rx#: [id number] Maxipime 2,000 MG In 200 / 200 Dextrose 5% (Minibag+) 100 ML 100 ML @ 200 mls/ hr IVPB Q12HR GIFTY Rx#: [id number] Other: Meal Dinner Percent of Meal Consumed 0% Weight 66.9 kg Blood Glucose* 84 91 84 Patient Weight 11/13/16 23:59 Weight 66.9 kg Exam: Lethagic, follow basic commands, but not consistently. - Eye Pupils: Present: PERRL - ENT ENT exam: Present: mucous membranes moist - Neck Neck exam: Present: normal inspection - Respiratory Respiratory exam: Present: CTAB - Cardiovascular Cardiovascular exam: Present: +S1 - GI/Abdominal GI/Abdominal exam: Present: tenderness (right upper quadrant tenderness with palpation.) - Extremities Exam Extremities exam: Present: normal inspection - Neurological Exam Additional comments: lethargic Oncology: Obj Data - Labs CBC & Chem 7: 11/13/16 07:07 11/13/16 07:07 Labs: Laboratory Results - last 24 hr 11/12/16 11/12/16 11/12/16 11:33 16:48 21:09 WBC RBC Hgb Hct MCV MCH MCHC RDW Plt Count MPV Immature Gran % Seg Neutrophils % Lymphocytes % Monocytes % Eosinophils % Basophils % Neutrophils # Lymphocytes # Monocytes # Eosinophils # Basophils # Platelet Estimate Sodium Potassium Chloride Carbon Dioxide BUN Creatinine Est GFR ( Amer) Est GFR (Non-Af Amer) BUN/Creatinine Ratio Glucose POC Glucose 115 H 98 H 84 Calculated Osmolality Uric Acid Calcium Total Bilirubin AST ALT Alkaline Phosphatase Serum Total Protein Albumin Globulin Albumin/Globulin Ratio Random Vancomycin 11/13/16 11/13/16 11/13/16 07:07 07:07 07:07 WBC 9.2 RBC 2.96 L Hgb 8.8 L Hct 27.1 L MCV 91.6 MCH 29.7 MCHC 32.5 RDW 17.2 H Plt Count 201 MPV 10.1 Immature Gran % 6.1 H Seg Neutrophils % 88.1 Lymphocytes % 3.9 Monocytes % 1.2 Eosinophils % 0.5 Basophils % 0.2 Neutrophils # 8.1 Lymphocytes # 0.4 L Monocytes # 0.1 Eosinophils # 0.1 Basophils # 0.0 Platelet Estimate Normal Sodium 139 Potassium 6.0 H Chloride 112 H Carbon Dioxide 17 L BUN 57 H D Creatinine 1.65 H Est GFR ( Amer) 51 L Est GFR (Non-Af Amer) 42 L BUN/Creatinine Ratio 35 H Glucose 79 POC Glucose Calculated Osmolality 303 H Uric Acid 3.8 Calcium 9.0 Total Bilirubin 2.6 H AST 147 H ALT 83 H Alkaline Phosphatase 445 H Serum Total Protein 5.5 L Albumin 1.6 L Globulin 3.9 H Albumin/Globulin Ratio 0.4 L Random Vancomycin 23.4 - ABG Interpretation ABG results: PT/INR, D-dimer PT 12.2 Seconds (9.4-12.1) H 11/06/16 18:06 Consult Discharge Plan - Plan [facility]errals: [facility] [[facility] Care Provider[facility] - 11/15/16 3:30 pm
[2016-11-13] MEDS ORDERED: *HR* OxyCODONE Immed Rel 5 MG TABLET PO PRN ×2 (13:53→14:05)
--- NOTE | 2016-11-13 13:56 | Palliative Progress Note ---
Date of Encounter: 11/13/16 Time of Encounter: 13:50 - Assessment and plan (1) Cancer associated pain Current Visit: Yes Status: Acute Assessment and plan: He continues to be very lethargic - unable to stay awake for conversation. MS Contin was started yesterday am. Renal function worsening. Mr Vega has a history of not asking for pain medication, however, with his lethargy, I am not comfortable with him continuing on the MS Contin. D/W 2A pharmacist [place]. Will D/C and give scheduled Oxycodone 5mg every 6 hours, holding for hypotension , lethargy, or decreased resp rate. Will allow breakthrough doses every 4 hours if needed and will calculate his usage every 24 hours. Will decrease Gabapentin to 300mg TID and monitor neuropathy as well. (2) Nausea & vomiting Current Visit: Yes Status: Acute Assessment and plan: Continue antiemetics. Has not utilized last 24 hours. Qualifiers: Vomiting type: unspecified Vomiting Intractability: unspecified Qualified Code(s): R11.2 - Nausea with vomiting, unspecified (3) Generalized weakness Current Visit: Yes Status: Acute Assessment and plan: PT/OT consulted today and recommended ECF. SW on case (4) Counseling regarding advanced care planning and goals of care Current Visit: Yes Status: Acute Assessment and plan: Patient continues to be too lethargic to participate in much discussion. D/W girlfriend Joana at bedside. S/W working on ECF placement when pt ready. (5) Metastatic malignant neuroendocrine tumor to liver Current Visit: Yes Status: Acute - Time Spent With Patient Total time spent is greater than 50% in coordination of care (as documented) at patient's floor/unit and/or counseling patient: - Subjective Interval history: Patient remains very somulent - awakens but falls back to sleep during conversation. Was reported this am that pt was up in chair with PT and ate breakfast. Girlfriend at bedside. Worsening renal function. - Constitutional Vitals: Abnormal lab results RBC 2.96 M/mcL (4.19-5.50) L 11/13/16 07:07 Hgb 8.8 g/dL (12.9-16.9) L 11/13/16 07:07 Hct 27.1 % (37.5-50.1) L 11/13/16 07:07 RDW 17.2 % (11.5-14.5) H 11/13/16 07:07 Immature Gran % 6.1 % (0-4) H 11/13/16 07:07 Lymphocytes # 0.4 K/mcL (0.6-4.6) L 11/13/16 07:07 Anisocytosis 1+ (Not Present) A 11/12/16 03:22 Percent Retic 1.4 % (1.6-2.8) L 11/11/16 09:22 Immature Retic Fraction 7.6 % (11.0-38.0) L 11/11/16 09:22 PT 12.2 Seconds (9.4-12.1) H 11/06/16 18:06 Potassium 6.0 mEq/L (3.5-4.5) H 11/13/16 07:07 Chloride 112 mEq/L (98-109) H 11/13/16 07:07 Carbon Dioxide 17 mEq/L (19-29) L 11/13/16 07:07 BUN 57 mg/dL (8-26) H D 11/13/16 07:07 Creatinine 1.65 mg/dL (0.72-1.25) H 11/13/16 07:07 Est GFR ( Amer) 51 (> 60) L 11/13/16 07:07 Est GFR (Non-Af Amer) 42 (> 60) L 11/13/16 07:07 BUN/Creatinine Ratio 35 (6-26) H 11/13/16 07:07 Calculated Osmolality 303 (280-300) H 11/13/16 07:07 Iron 41 mcg/dL (65-175) L 11/11/16 09:22 Transferrin 138 mg/dL (174-364) L 11/11/16 09:22 Ferritin 1554 ng/ml (22-275) H 11/11/16 09:22 Total Bilirubin 2.6 mg/dL (0.2-1.2) H 11/13/16 07:07 Direct Bilirubin 1.4 mg/dL (0.0-0.5) H 11/06/16 17:15 AST 147 Units/L (5-34) H 11/13/16 07:07 ALT 83 Units/L (0-55) H 11/13/16 07:07 Alkaline Phosphatase 445 Units/L (38-126) H 11/13/16 07:07 Lactate Dehydrogenase > 3325 Units/L (159-327) H 11/11/16 09:22 Creatine Kinase 468 Units/L (30-200) H 11/06/16 18:06 Serum Total Protein 5.5 g/dL (6.0-8.3) L 11/13/16 07:07 Albumin 1.6 g/dL (3.5-5.0) L 11/13/16 07:07 Globulin 3.9 g/dL (2.4-3.5) H 11/13/16 07:07 Albumin/Globulin Ratio 0.4 (1.1-2.2) L 11/13/16 07:07 Vitamin B12 > 2000 pg/mL (213-816) H 11/11/16 09:22 Folate 5.4 ng/mL (7.0-31.4) L 11/11/16 09:22 Urine Protein 30 mg/dL (Neg-Trace) H 11/07/16 00:22 Urine Ketones 15 mg/dL (Negative) H 11/07/16 00:22 General appearance: Present: no acute distress - Respiratory Respiratory exam: Present: decreased breath sounds, CTAB - Cardiovascular Cardiovascular exam: Present: +S1, +S2 - GI/Abdominal GI/Abdominal exam: Present: normal bowel sounds, soft, tenderness Additional comments: RLQ tenderness - Extremities Exam Extremities exam: Present: normal capillary refill, normal inspection - Neurological Exam Additional comments: Lethargic, will awaken with stimulus and drifts back to sleep - Skin Skin exam: Present: dry, warm Palliative Quality Palliative Quality: Screen for Code Status: Yes, Screen for Goals of Care: Yes, Screen for Pain: Yes, If Pain Regimen Started, Initiate Bowel Regimen: NA ( Kayexelate inducing diarrhea), Screen for Nausea/Vomitting: Yes - Labs CBC & Chem 7: 11/13/16 07:07 11/13/16 07:07 Labs: Laboratory Results - last 24 hr 11/12/16 11/12/16 11/13/16 16:48 21:09 07:07 WBC 9.2 RBC 2.96 L Hgb 8.8 L Hct 27.1 L MCV 91.6 MCH 29.7 MCHC 32.5 RDW 17.2 H Plt Count 201 MPV 10.1 Immature Gran % 6.1 H Seg Neutrophils % 88.1 Lymphocytes % 3.9 Monocytes % 1.2 Eosinophils % 0.5 Basophils % 0.2 Neutrophils # 8.1 Lymphocytes # 0.4 L Monocytes # 0.1 Eosinophils # 0.1 Basophils # 0.0 Platelet Estimate Normal Sodium Potassium Chloride Carbon Dioxide BUN Creatinine Est GFR ( Amer) Est GFR (Non-Af Amer) BUN/Creatinine Ratio Glucose POC Glucose 98 H 84 Calculated Osmolality Uric Acid Calcium Total Bilirubin AST ALT Alkaline Phosphatase Serum Total Protein Albumin Globulin Albumin/Globulin Ratio Random Vancomycin 11/13/16 11/13/16 07:07 07:07 WBC RBC Hgb Hct MCV MCH MCHC RDW Plt Count MPV Immature Gran % Seg Neutrophils % Lymphocytes % Monocytes % Eosinophils % Basophils % Neutrophils # Lymphocytes # Monocytes # Eosinophils # Basophils # Platelet Estimate Sodium 139 Potassium 6.0 H Chloride 112 H Carbon Dioxide 17 L BUN 57 H D Creatinine 1.65 H Est GFR ( Amer) 51 L Est GFR (Non-Af Amer) 42 L BUN/Creatinine Ratio 35 H Glucose 79 POC Glucose Calculated Osmolality 303 H Uric Acid 3.8 Calcium 9.0 Total Bilirubin 2.6 H AST 147 H ALT 83 H Alkaline Phosphatase 445 H Serum Total Protein 5.5 L Albumin 1.6 L Globulin 3.9 H Albumin/Globulin Ratio 0.4 L Random Vancomycin 23.4 - ABG Interpretation ABG results: PT/INR, D-dimer PT 12.2 Seconds (9.4-12.1) H 11/06/16 18:06 Consult Discharge Plan - Plan [facility]errals: [facility] [Primary Care Provider[facility] - 11/15/16 3:30 pm
[2016-11-13] MEDS: 0.9 % Sodium Chloride 1,000 ML IVC SCH (14:22)
[2016-11-13] MEDS: Gabapentin 300 MG CAPSULE PO SCH ×2 (16:25→20:53)
[2016-11-13] MEDS: *HR* OxyCODONE Immed Rel 5 MG TABLET PO SCH (17:48)
[2016-11-14] MEDS: *HR* OxyCODONE Immed Rel 5 MG TABLET PO SCH ×5 (00:41→23:07)
[2016-11-14] MEDS ORDERED: *HR* Metoprolol 5 MG/5 ML VIAL IVP ONE (00:55)
[2016-11-14] MEDS: 0.9 % Sodium Chloride 1,000 ML IVC SCH ×2 (03:23→17:20)
[2016-11-14] MEDS: Ipratropium/Albuterol Neb 3 ML IH SCH ×4 (04:06→22:18)
[2016-11-14] MEDS: *HR* Enoxaparin 40 MG/0.4 ML SYRINGE SQ SCH (05:53)
[2016-11-14] MEDS: Cefepime HCl 2,000 MG in D5% in Water (Mini-Bag+) 100 ML IVPB SCH (05:54)
[2016-11-14 06:43] LABS: Basophils % 0.4 %; Eosinophils # 0.1 K/mcL (0.0-0.6); Eosinophils % 0.8 %; Hematocrit 27.6 % (37.5-50.1); Hemoglobin 8.9 g/dL (12.9-16.9); Immature Granulocytes % 5.4 % (0-4); Lymphocytes # 0.4 K/mcL (0.6-4.6); Mean Corpuscular HGB Conc 32.2 g/dL (31.6-35.5); Mean Corpuscular Hemoglobin 30.1 pg (28.0-33.3); Mean Corpuscular Volume 93.2 fL (83.0-100.0); Monocytes # 0.3 K/mcL (0.0-1.3); Monocytes % 2.9 %; Platelet Count 204 K/mcL (140-400); Red Blood Count 2.96 M/mcL (4.19-5.50); Red Cell Distribution Width 17.4 % (11.5-14.5); Segmented Neutrophils % 86.5 %
[2016-11-14 06:57] LABS: Albumin/Globulin Ratio 0.4 (1.1-2.2); Bilirubin,Total 2.4 mg/dL (0.2-1.2); Calcium 8.8 mg/dL (8.6-10.8); Potassium 5.6 mEq/L (3.5-4.5); Total Protein 5.6 g/dL (6.0-8.3); Uric Acid 4.4 mg/dL (3.5-7.2)
[2016-11-14 07:03] LABS: Albumin 1.6 g/dL (3.5-5.0)
[2016-11-14] MEDS ORDERED: 0.9 % Sodium Chloride 500 ML IVC ONE (07:53)
[2016-11-14] MEDS: Lidocaine 4% CREAM (LMX) 5 GM TP SCH ×2 (08:58→20:48)
[2016-11-14] MEDS: Metoprolol XL (24 HR) Succ 50 MG TAB.ER.24H PO SCH (08:58)
[2016-11-14] MEDS: Folic Acid 1 MG TABLET PO SCH (08:58)
[2016-11-14] MEDS: predniSONE 10 MG TABLET PO SCH (08:58)
--- NOTE | 2016-11-14 08:58 | Oncology Inp Progress Note ---
Date of Encounter: 11/14/16 Time of Encounter: 08:56 (1) Metastatic malignant neuroendocrine tumor to liver Current Visit: Yes Status: Acute Assessment and plan: -Currently on cycle 1 day 7 of cisplatin plus etoposide regimen ( modified regimen: 2 days for better tolerability). - Total bilirrubin values keep improving, what probably suggest some degree of response to recent chemotherapy. - There is a mild drop on his Hb levels, but otherwise not significant myelosupression. will continue monitoring his CBC daily. - His CT abdomen from 11/11 revealed unchanged metastatic lesions, although probably it was too early to assess for response. (2) Lethargy Current Visit: Yes Status: Acute Assessment and plan: -Improved today, but still confused. I wonder if gabapentin could be playing a role in view of his reduced creatinine clearance. Please consider discussing with palliative care or pharmacy whether it's appropriate to decrease gabapentin to 100 or 150 mg q daily. - I appreciate palliative care input regarding pain management. Morphine was discontinued. - Check Ammonia level - Monitor LFTs daily (3) Anemia Current Visit: Yes Status: Chronic Assessment and plan: - More likely multifactorial, with mild drop secondary to recent chemotherapy. - Continue folate replacement ( in view of low folate levels) Qualifiers: Anemia type: folate deficiency Folate deficiency anemia type: unspecified folate deficiency Qualified Code(s): D52.9 - Folate deficiency anemia, unspecified (4) Acute kidney injury Current Visit: Yes Status: Acute Assessment and plan: Associated with hyperkalemia. Probably increasing the half life of gabapentin and morphine. - Agree with kayexolate x 1 for management of hyperkalemia. If not improvement, may consider nephrology consult. Oncology: Subj Interval history: He looks more awake, but still confused, could not tell me who was the president of [place] or the current year. he seems incoherent, it seems to deny pain. No significant overnight issues ,seen with patient's nurse at the bedside. - Constitutional Vitals: Vital Signs Temp Pulse Resp BP Pulse Ox 11/14/16 06:54 98.3 F 113 16 130/74 94 11/14/16 04:07 16 95 11/14/16 04:00 98.2 F 76 17 113/50 97 11/13/16 23:00 98.1 F 134 17 144/71 95 11/13/16 22:05 16 92 11/13/16 20:45 94 11/13/16 20:14 98.3 F 124 20 138/71 94 11/13/16 16:08 16 95 11/13/16 15:40 98.7 F 112 14 116/69 95 11/13/16 10:50 16 94 11/13/16 10:39 98.3 F 119 19 104/61 94 11/13/16 09:45 94 Intake and Output 11/13/16 11/14/16 11/14/16 23:59 07:59 15:59 Intake Total 200 / 200 Output Total 900 / 900 800 / 800 Balance -700 / -700 -800 / -800 Intake: IV Fluids 200 / 200 Maxipime 2,000 MG In 200 / 200 Dextrose 5% (Minibag+) 100 ML 100 ML @ 200 mls/ hr IVPB Q12HR GIFTY Rx#: [id number] Oral 0 / 0 Output: Catheter 900 / 900 800 / 800 Other: Meal Dinner Percent of Meal Consumed 0% Blood Glucose* 114 83 - Head Head exam: Present: normal inspection - ENT ENT exam: Present: normal exam - Respiratory Respiratory exam: Present: CTAB - Cardiovascular Cardiovascular exam: Present: RRR - GI/Abdominal Additional comments: There is not tenderness with superficial palpation. BS present. - Extremities Exam Additional comments: Bilateral lower extremity edema. no tenderness. Oncology: Obj Data - Labs CBC & Chem 7: 11/14/16 06:27 11/14/16 06:27 Labs: Laboratory Results - last 24 hr 11/13/16 11/13/16 11/13/16 07:07 07:15 10:42 WBC RBC Hgb Hct MCV MCH MCHC RDW Plt Count MPV Immature Gran % Seg Neutrophils % Lymphocytes % Monocytes % Eosinophils % Basophils % Neutrophils # Lymphocytes # Monocytes # Eosinophils # Basophils # Sodium Potassium Chloride Carbon Dioxide BUN Creatinine Est GFR ( Amer) Est GFR (Non-Af Amer) BUN/Creatinine Ratio Glucose POC Glucose 91 H 84 Calculated Osmolality Uric Acid 3.8 Calcium Total Bilirubin AST ALT Alkaline Phosphatase Serum Total Protein Albumin Globulin Albumin/Globulin Ratio Random Vancomycin Specimen Rejected 11/13/16 11/13/16 11/13/16 15:44 15:51 17:04 WBC RBC Hgb Hct MCV MCH MCHC RDW Plt Count MPV Immature Gran % Seg Neutrophils % Lymphocytes % Monocytes % Eosinophils % Basophils % Neutrophils # Lymphocytes # Monocytes # Eosinophils # Basophils # Sodium Potassium 5.8 H Chloride Carbon Dioxide BUN Creatinine Est GFR ( Amer) Est GFR (Non-Af Amer) BUN/Creatinine Ratio Glucose POC Glucose 88 Calculated Osmolality Uric Acid Calcium Total Bilirubin AST ALT Alkaline Phosphatase Serum Total Protein Albumin Globulin Albumin/Globulin Ratio Random Vancomycin Specimen Rejected Hemolyzed 11/13/16 11/14/16 11/14/16 20:19 06:27 06:27 WBC 10.4 RBC 2.96 L Hgb 8.9 L Hct 27.6 L MCV 93.2 MCH 30.1 MCHC 32.2 RDW 17.4 H Plt Count 204 MPV 10.0 Immature Gran % 5.4 H Seg Neutrophils % 86.5 Lymphocytes % 4.0 Monocytes % 2.9 Eosinophils % 0.8 Basophils % 0.4 Neutrophils # 9.0 H Lymphocytes # 0.4 L Monocytes # 0.3 Eosinophils # 0.1 Basophils # 0.0 Sodium 141 Potassium 5.6 H Chloride 114 H Carbon Dioxide 17 L BUN 61 H Creatinine 1.77 H Est GFR ( Amer) 47 L Est GFR (Non-Af Amer) 39 L BUN/Creatinine Ratio 34 H Glucose 79 POC Glucose 114 H Calculated Osmolality 308 H Uric Acid 4.4 Calcium 8.8 Total Bilirubin 2.4 H AST 114 H ALT 65 H Alkaline Phosphatase 458 H Serum Total Protein 5.6 L Albumin 1.6 L Globulin 4.0 H Albumin/Globulin Ratio 0.4 L Random Vancomycin Specimen Rejected 11/14/16 11/14/16 11/14/16 06:27 07:01 07:14 WBC RBC Hgb Hct MCV MCH MCHC RDW Plt Count MPV Immature Gran % Seg Neutrophils % Lymphocytes % Monocytes % Eosinophils % Basophils % Neutrophils # Lymphocytes # Monocytes # Eosinophils # Basophils # Sodium Potassium Chloride Carbon Dioxide BUN Creatinine Est GFR ( Amer) Est GFR (Non-Af Amer) BUN/Creatinine Ratio Glucose POC Glucose 83 Calculated Osmolality Uric Acid Calcium Total Bilirubin AST ALT Alkaline Phosphatase Serum Total Protein Albumin Globulin Albumin/Globulin Ratio Random Vancomycin 17.0 Specimen Rejected Hemolyzed - ABG Interpretation ABG results: PT/INR, D-dimer PT 12.2 Seconds (9.4-12.1) H 11/06/16 18:06 Consult Discharge Plan - Plan [facility]errals: [facility] [[facility] Care Provider[facility] - 11/15/16 3:30 pm
[2016-11-14] MEDS: Gabapentin 300 MG CAPSULE PO SCH (09:02)
--- NOTE | 2016-11-14 09:48 | Palliative Progress Note ---
Date of Encounter: 11/14/16 Time of Encounter: 09:45 - Assessment and plan (1) Cancer associated pain Current Visit: Yes Status: Acute Assessment and plan: More alert today - appears to be tolerating Oxycodone well. On scheduled dosing - has not required any medication for breakthrough pain. Reviewed oncology recommendations re: Gabapentin and spoke with 2A pharamacist. Dosage was decreased from 2gm, to 900mg/daily yesterday. will continue to wean. Monitor closely (2) Constipation due to opioid therapy Current Visit: Yes Status: Acute Assessment and plan: No BM documented since 11/10. Will begin Senokot as he is on scheduled opioids. Dulcolax supp. PRN. Monitor (3) Nausea & vomiting Current Visit: Yes Status: Acute Qualifiers: Vomiting type: unspecified Vomiting Intractability: unspecified Qualified Code(s): R11.2 - Nausea with vomiting, unspecified (4) Generalized weakness Current Visit: Yes Status: Acute Assessment and plan: Continue PT/OT (5) Counseling regarding advanced care planning and goals of care Current Visit: Yes Status: Acute Assessment and plan: Ongoing discussion with pt/girlfriend. He is confused this am, and she has not yet arrived. Will re-visit this afternoon. (6) Metastatic malignant neuroendocrine tumor to liver Current Visit: Yes Status: Acute - Time Spent With Patient Total time spent is greater than 50% in coordination of care (as documented) at patient's floor/unit and/or counseling patient: - Subjective Interval history: Patient more awake today, however, very weak. Unable to feed self - states "hands so swollen I can't hold fork". Patient asking what day it is and events over last few days as he "lost them". Still confused. Some jerking movements noted to head and upper extremities. States pain medication is effective. Encouraged him to ensure he tells staff if he is hurting. - Constitutional Vitals: Abnormal lab results RBC 2.96 M/mcL (4.19-5.50) L 11/14/16 06:27 Hgb 8.9 g/dL (12.9-16.9) L 11/14/16 06:27 Hct 27.6 % (37.5-50.1) L 11/14/16 06:27 RDW 17.4 % (11.5-14.5) H 11/14/16 06:27 Immature Gran % 5.4 % (0-4) H 11/14/16 06:27 Neutrophils # 9.0 K/mcL (1.6-8.9) H 11/14/16 06:27 Lymphocytes # 0.4 K/mcL (0.6-4.6) L 11/14/16 06:27 Anisocytosis 1+ (Not Present) A 11/12/16 03:22 Percent Retic 1.4 % (1.6-2.8) L 11/11/16 09:22 Immature Retic Fraction 7.6 % (11.0-38.0) L 11/11/16 09:22 PT 12.2 Seconds (9.4-12.1) H 11/06/16 18:06 Potassium 5.6 mEq/L (3.5-4.5) H 11/14/16 06:27 Chloride 114 mEq/L (98-109) H 11/14/16 06:27 Carbon Dioxide 17 mEq/L (19-29) L 11/14/16 06:27 BUN 61 mg/dL (8-26) H 11/14/16 06:27 Creatinine 1.77 mg/dL (0.72-1.25) H 11/14/16 06:27 Est GFR ( Amer) 47 (> 60) L 11/14/16 06:27 Est GFR (Non-Af Amer) 39 (> 60) L 11/14/16 06:27 BUN/Creatinine Ratio 34 (6-26) H 11/14/16 06:27 Calculated Osmolality 308 (280-300) H 11/14/16 06:27 Iron 41 mcg/dL (65-175) L 11/11/16 09:22 Transferrin 138 mg/dL (174-364) L 11/11/16 09:22 Ferritin 1554 ng/ml (22-275) H 11/11/16 09:22 Total Bilirubin 2.4 mg/dL (0.2-1.2) H 11/14/16 06:27 Direct Bilirubin 1.4 mg/dL (0.0-0.5) H 11/06/16 17:15 AST 114 Units/L (5-34) H 11/14/16 06:27 ALT 65 Units/L (0-55) H 11/14/16 06:27 Alkaline Phosphatase 458 Units/L (38-126) H 11/14/16 06:27 Lactate Dehydrogenase > 3325 Units/L (159-327) H 11/11/16 09:22 Creatine Kinase 468 Units/L (30-200) H 11/06/16 18:06 Serum Total Protein 5.6 g/dL (6.0-8.3) L 11/14/16 06:27 Albumin 1.6 g/dL (3.5-5.0) L 11/14/16 06:27 Globulin 4.0 g/dL (2.4-3.5) H 11/14/16 06:27 Albumin/Globulin Ratio 0.4 (1.1-2.2) L 11/14/16 06:27 Vitamin B12 > 2000 pg/mL (213-816) H 11/11/16 09:22 Folate 5.4 ng/mL (7.0-31.4) L 11/11/16 09:22 Urine Protein 30 mg/dL (Neg-Trace) H 11/07/16 00:22 Urine Ketones 15 mg/dL (Negative) H 11/07/16 00:22 General appearance: Present: no acute distress - Respiratory Respiratory exam: Present: decreased breath sounds Additional comments: Scattered rhonchi noted. - Cardiovascular Cardiovascular exam: Present: tachycardia - GI/Abdominal GI/Abdominal exam: Present: distended, normal bowel sounds, soft - Extremities Exam Additional comments: generalized swelling to upper and lower extremities - Neurological Exam Neurological exam: Present: alert Additional comments: Oriented to name and place, requires reorientation to time and situation. Follows simple commands. Having difficulty moving extremities r/t weakness and edema - Skin Skin exam: Present: dry, pallor, warm Palliative Quality Palliative Quality: Screen for Code Status: Yes, Screen for Goals of Care: Yes, Screen for Pain: Yes, If Pain Regimen Started, Initiate Bowel Regimen: NA ( Kayexelate inducing diarrhea), Screen for Nausea/Vomitting: Yes - Labs CBC & Chem 7: 11/14/16 06:27 11/14/16 06:27 Labs: Laboratory Results - last 24 hr 11/13/16 11/13/16 11/13/16 07:15 10:42 15:44 WBC RBC Hgb Hct MCV MCH MCHC RDW Plt Count MPV Immature Gran % Seg Neutrophils % Lymphocytes % Monocytes % Eosinophils % Basophils % Neutrophils # Lymphocytes # Monocytes # Eosinophils # Basophils # Sodium Potassium Chloride Carbon Dioxide BUN Creatinine Est GFR ( Amer) Est GFR (Non-Af Amer) BUN/Creatinine Ratio Glucose POC Glucose 91 H 84 88 Calculated Osmolality Uric Acid Calcium Total Bilirubin AST ALT Alkaline Phosphatase Serum Total Protein Albumin Globulin Albumin/Globulin Ratio Random Vancomycin Specimen Rejected 11/13/16 11/13/16 11/13/16 15:51 17:04 20:19 WBC RBC Hgb Hct MCV MCH MCHC RDW Plt Count MPV Immature Gran % Seg Neutrophils % Lymphocytes % Monocytes % Eosinophils % Basophils % Neutrophils # Lymphocytes # Monocytes # Eosinophils # Basophils # Sodium Potassium 5.8 H Chloride Carbon Dioxide BUN Creatinine Est GFR ( Amer) Est GFR (Non-Af Amer) BUN/Creatinine Ratio Glucose POC Glucose 114 H Calculated Osmolality Uric Acid Calcium Total Bilirubin AST ALT Alkaline Phosphatase Serum Total Protein Albumin Globulin Albumin/Globulin Ratio Random Vancomycin Specimen Rejected Hemolyzed 11/14/16 11/14/16 11/14/16 06:27 06:27 06:27 WBC 10.4 RBC 2.96 L Hgb 8.9 L Hct 27.6 L MCV 93.2 MCH 30.1 MCHC 32.2 RDW 17.4 H Plt Count 204 MPV 10.0 Immature Gran % 5.4 H Seg Neutrophils % 86.5 Lymphocytes % 4.0 Monocytes % 2.9 Eosinophils % 0.8 Basophils % 0.4 Neutrophils # 9.0 H Lymphocytes # 0.4 L Monocytes # 0.3 Eosinophils # 0.1 Basophils # 0.0 Sodium 141 Potassium 5.6 H Chloride 114 H Carbon Dioxide 17 L BUN 61 H Creatinine 1.77 H Est GFR ( Amer) 47 L Est GFR (Non-Af Amer) 39 L BUN/Creatinine Ratio 34 H Glucose 79 POC Glucose Calculated Osmolality 308 H Uric Acid 4.4 Calcium 8.8 Total Bilirubin 2.4 H AST 114 H ALT 65 H Alkaline Phosphatase 458 H Serum Total Protein 5.6 L Albumin 1.6 L Globulin 4.0 H Albumin/Globulin Ratio 0.4 L Random Vancomycin 17.0 Specimen Rejected 11/14/16 11/14/16 07:01 07:14 WBC RBC Hgb Hct MCV MCH MCHC RDW Plt Count MPV Immature Gran % Seg Neutrophils % Lymphocytes % Monocytes % Eosinophils % Basophils % Neutrophils # Lymphocytes # Monocytes # Eosinophils # Basophils # Sodium Potassium Chloride Carbon Dioxide BUN Creatinine Est GFR ( Amer) Est GFR (Non-Af Amer) BUN/Creatinine Ratio Glucose POC Glucose 83 Calculated Osmolality Uric Acid Calcium Total Bilirubin AST ALT Alkaline Phosphatase Serum Total Protein Albumin Globulin Albumin/Globulin Ratio Random Vancomycin Specimen Rejected Hemolyzed - ABG Interpretation ABG results: PT/INR, D-dimer PT 12.2 Seconds (9.4-12.1) H 11/06/16 18:06 Consult Discharge Plan - Plan Referrals: [facility],PCP [Primary Care Provider] - 11/15/16 3:30 pm
[2016-11-14] MEDS ORDERED: Bisacodyl 10 MG RECTAL SUPPOSITORY RC PRN (09:49)
[2016-11-14] MEDS ORDERED: Sennosides/Docusate Sodium TABLET PO SCH (10:00)
[2016-11-14] MEDS: Budesonide Neb 0.25 MG/2 ML IH SCH ×2 (10:54→22:18)
--- NOTE | 2016-11-14 11:51 | Internal Med Progress Note ---
Date of Encounter: 11/14/16 Time of Encounter: 11:51 - Assessment and plan (1) Abdominal pain Current Visit: Yes Status: Acute Assessment and plan: Secondary to malignancy Continue pain control Qualifiers: Abdominal location: right upper quadrant Qualified Code(s): R10.11 - Right upper quadrant pain (2) Acute kidney injury Current Visit: Yes Status: Acute Assessment and plan: Prerenal JEWEL secondary to dehydration. Patient has high-risk for tumor lysis syndrome. Renal function continues to worsen D/C Vancomycin 11/13/16, patient has received 8 days of therapy Kayexalate for hyperkalemia Uric acid is WNL (3) Hyperkalemia Current Visit: Yes Status: Acute Assessment and plan: Kayexalate X1 Rpt K a.m Monitor closely (4) Pneumonia Current Visit: Yes Status: Acute Assessment and plan: CT chest shows Right lower lobe infiltrate concerning for pneumonia. Leukocytosis resolved D/C Vancomycin-8 days complete Continue Cefepime and d/c after 8 days) Qualifiers: Pneumonia type: due to unspecified organism Laterality: right Lung location: lower lobe of lung Qualified Code(s): J18.1 - Lobar pneumonia, unspecified organism (5) Metastatic malignant neuroendocrine tumor to liver Current Visit: Yes Status: Acute Assessment and plan: Liver, biopsy: Positive for carcinoma with neuroendocrine features, This tumor is aggressive and behaving clinically like small cell carcinoma. Multiple liver metastasis with hepatomegaly. Started palliative chemotherapy per oncology recommendations: Cycle 1 day 6 of cisplatin plus etoposide regimen today. He received 2 days of etoposide for better tolerability. Has tolerated treatment relatively well. No unexpected side effects Continue Allopurinol 200 mg by mouth at bedtime CT abdomen and pelvis with oral contrast shows no changes in liver mets, no evidence of obstruction. Palliative care following Patient is very ill, condition is serious Oncology is following (6) Cancer associated pain Current Visit: Yes Status: Acute Assessment and plan: as in abdominal pain (7) Tumor-induced hypophosphatemia Current Visit: Yes Status: Resolved Assessment and plan: Continue to monitor, patient is high risk for tumor lysis syndrome (8) Anemia Current Visit: Yes Status: Chronic Assessment and plan: Predates chemotherapy. Hematology/oncology recommends transfusion support as needed to maintain hemoglobin of 7 or greater and platelet count of 30,000 or greater. Normocytic Anemia in the setting of chronic disease with folate deficiency. Continue to monitor No evidence of hemolysis Qualifiers: Anemia type: folate deficiency Folate deficiency anemia type: unspecified folate deficiency Qualified Code(s): D52.9 - Folate deficiency anemia, unspecified (9) Aspiration into airway Current Visit: Yes Status: Acute Assessment and plan: NPO Consult speech and swallow Qualifiers: Encounter type: initial encounter Qualified Code(s): T17.908A - Unspecified foreign body in respiratory tract, part unspecified causing other injury, initial encounter - Subjective Interval history: Second encounter 66 M being managed for metastatic liver CA-neuroendocrine he is receiving chemo in-patient and being followed by oncology Additional diagnoses in this admission include Pneumonia and JEWEL He is seen at bedside this morning , he clinically has some mild improvement His renal function is slightly worse today On evaluation during PCR, he started choking on his recently started choking on his meals We will keep him NPO and consult speech and swallow - Constitutional Vitals: Temp Pulse Resp BP Pulse Ox 98.3 F 113 16 130/74 94 11/14/16 06:54 11/14/16 06:54 11/14/16 06:54 11/14/16 06:54 11/14/16 06:54 General appearance: Present: cachectic, cooperative, mild distress, pleasant, underweight, answers questions appropriately - Head Head exam: Present: atraumatic, normocephalic - Eye Eye exam: Present: PERRL, conjuntiva pink, sclera anicteric Pupils: Present: PERRL - Neck Neck exam general surgery: Present: supple, trachea midline. Absent: lymphadenopathy - Respiratory Respiratory exam: Present: CTAB. Absent: accessory muscle use, rales, rhonchi, wheezes - Cardiovascular Cardiovascular exam: Present: RRR, +S1, +S2. Absent: diastolic murmur, gallop, rubs, systolic murmur - GI/Abdominal GI/Abdominal exam: Present: normal bowel sounds, soft, no peritoneal signs. Absent: distended, tenderness - Extremities Exam Extremities exam: Present: pedal edema (trace edema), warm, radial pulses palpable and symetrical. Absent: calf tenderness, cyanotic - Neurological Exam Neurological exam: Present: alert, CN II-XII intact, oriented X3, no focal deficits. Absent: pronater drift, facial droop, speech deficit - Skin Skin exam: Present: dry, intact Internal Medicine: Result - Labs CBC & Chem 7: 11/14/16 06:27 11/14/16 06:27 Labs: Short CBC 11/14/16 Range/Units 06:27 WBC 10.4 (4.3-11.1) K/mcL Hgb 8.9 L (12.9-16.9) g/dL Hct 27.6 L (37.5-50.1) % Plt Count 204 (140-400) K/mcL Neutrophils # 9.0 H (1.6-8.9) K/mcL BMP 11/13/16 11/14/16 17:04 06:27 Sodium 141 Potassium 5.8 H 5.6 H Chloride 114 H Carbon Dioxide 17 L BUN 61 H Creatinine 1.77 H Glucose 79 Calcium 8.8 Liver Function 11/14/16 Range/Units 06:27 Total Bilirubin 2.4 H (0.2-1.2) mg/dL AST 114 H (5-34) Units/L ALT 65 H (0-55) Units/L Alkaline Phosphatase 458 H (38-126) Units/L Albumin 1.6 L (3.5-5.0) g/dL - ABG Interpretation ABG results: PT/INR, D-dimer PT 12.2 Seconds (9.4-12.1) H 11/06/16 18:06 Consult Discharge Plan - Plan Referrals: [facility]AT[facility],PCP [Primary Care Provider] - 11/15/16 3:30 pm
[2016-11-14 15:59] LABS: Bilirubin,Urine Negative (Negative); Blood,Urine Moderate (Negative); Clarity,Urine Turbid (Clear); Color,Urine Yellow (Yellow); Glucose,Urine (UA) Normal (Normal); Ketones,Urine Negative (Negative); Leukocyte Esterase,Urine Trace (Negative); Nitrite,Urine Negative (Negative); Protein,Urine 30 mg/dL (Neg-Trace); Specific Gravity,Urine 1.015 (1.010-1.025); Urobilinogen,Urine Normal (Normal)
[2016-11-14 16:01] LABS: Bacteria,Urine None Seen per hpf (None-Few); Squamous Epithelial Cell,Urine Many per lpf (None-Few); WBC,Urine 15-30 per hpf (0-3)
[2016-11-14 16:20] LABS: Granular Casts,Urine Moderate per lpf (None Seen)
[2016-11-14] MEDS: Cefepime HCl 1,000 MG in D5% in Water (Mini-Bag+) 100 ML IVPB SCH (17:20)
[2016-11-14] MEDS: Sennosides/Docusate Sodium TABLET PO SCH (20:38)
[2016-11-15] MEDS ORDERED: *HR* LORazepam 2 MG/ML VIAL IVP ONE ×2 (03:51→04:24)
[2016-11-15] MEDS ORDERED: Haloperidol Lactate 5 MG/ML VIAL IVP ONE (04:24)
[2016-11-15] MEDS: Ipratropium/Albuterol Neb 3 ML IH SCH ×4 (04:43→20:53)
[2016-11-15] MEDS: *HR* Enoxaparin 30 MG/0.3 ML SYRINGE SQ SCH (05:22)
[2016-11-15] MEDS: Cefepime HCl 1,000 MG in D5% in Water (Mini-Bag+) 100 ML IVPB SCH ×2 (05:22→18:14)
[2016-11-15] MEDS: *HR* OxyCODONE Immed Rel 5 MG TABLET PO SCH (05:31)
[2016-11-15 06:13] LABS: Basophils % 0.2 %; Eosinophils % 0.1 %; Hematocrit 29.4 % (37.5-50.1); Hemoglobin 9.4 g/dL (12.9-16.9); Immature Granulocytes % 2.3 % (0-4); Lymphocytes # 0.4 K/mcL (0.6-4.6); Mean Corpuscular Hemoglobin 30.1 pg (28.0-33.3); Mean Corpuscular Volume 94.2 fL (83.0-100.0); Mean Platelet Volume 10.7 fL (9.4-12.4); Monocytes # 0.5 K/mcL (0.0-1.3); Monocytes % 4.7 %; Platelet Count 154 K/mcL (140-400); Red Blood Count 3.12 M/mcL (4.19-5.50); Red Cell Distribution Width 17.8 % (11.5-14.5); Segmented Neutrophils % 88.7 %
[2016-11-15 07:12] LABS: Calcium 8.7 mg/dL (8.6-10.8); Potassium 4.9 mEq/L (3.5-4.5)
[2016-11-15] MEDS ORDERED: Metoprolol XL (24 HR) Succ 50 MG TAB.ER.24H PO SCH (09:00)
[2016-11-15] MEDS ORDERED: *HR* HYDROmorphone 2 MG/ML SYRINGE IVP PRN (09:11)
--- NOTE | 2016-11-15 09:16 | Palliative Progress Note ---
Date of Encounter: 11/15/16 Time of Encounter: 09:00 - Assessment and plan (1) Cancer associated pain Current Visit: Yes Status: Acute Assessment and plan: Patient now NPO. He has not had any pain medication since 1145am yesterday, his behavior during the night could have been r/t to his discomfort. Will D/C Oxycodone since now NPO, and have low dose Hydromorphone (0.25mg every 4 hours) for pain if needed. Monitor. He is very sedated this am. Meds on hold so unable to take Gabapentin at this time as well. (2) Constipation due to opioid therapy Current Visit: Yes Status: Acute Assessment and plan: Large BM yesterday. MOnitor. Unable to take oral Senna, but does have Dulcolax available if needed. (3) Nausea & vomiting Current Visit: Yes Status: Acute Qualifiers: Vomiting type: unspecified Vomiting Intractability: unspecified Qualified Code(s): R11.2 - Nausea with vomiting, unspecified (4) Generalized weakness Current Visit: Yes Status: Acute Assessment and plan: Continue PT/OT, however, r/t pt lethargy today and after benzodiazepines given early this am, doubt he will be able to participate today. (5) Counseling regarding advanced care planning and goals of care Current Visit: Yes Status: Acute Assessment and plan: Will speak with girlfriend when she arrives later today. (6) Metastatic malignant neuroendocrine tumor to liver Current Visit: Yes Status: Acute - Time Spent With Patient Total time spent is greater than 50% in coordination of care (as documented) at patient's floor/unit and/or counseling patient: 25 - 35 minutes - Subjective Interval history: Late yesterday afternoon, pt began having difficulty swallowing and speech therapy was consulted. He was not alert enough to participate during their visit, and is now NPO. In review of chart, pt with confusion, pulling at lines and attempting to get out of bed last night. He was given Lorazepam and Haloperidol IV. Currently sedated and I am having difficulty arousing him. He does move and attempt to open eyes when assessed. Little change in renal function today. Liver enzymes improving. No visitors present. - Constitutional Vitals: Abnormal lab results RBC 3.12 M/mcL (4.19-5.50) L 11/15/16 05:56 Hgb 9.4 g/dL (12.9-16.9) L 11/15/16 05:56 Hct 29.4 % (37.5-50.1) L 11/15/16 05:56 RDW 17.8 % (11.5-14.5) H 11/15/16 05:56 Neutrophils # 9.0 K/mcL (1.6-8.9) H 11/15/16 05:56 Lymphocytes # 0.4 K/mcL (0.6-4.6) L 11/15/16 05:56 Anisocytosis 1+ (Not Present) A 11/12/16 03:22 Percent Retic 1.4 % (1.6-2.8) L 11/11/16 09:22 Immature Retic Fraction 7.6 % (11.0-38.0) L 11/11/16 09:22 PT 12.2 Seconds (9.4-12.1) H 11/06/16 18:06 Potassium 4.9 mEq/L (3.5-4.5) H 11/15/16 06:35 Chloride 117 mEq/L (98-109) H 11/15/16 06:35 BUN 59 mg/dL (8-26) H 11/15/16 06:35 Creatinine 1.79 mg/dL (0.72-1.25) H 11/15/16 06:35 Est GFR ( Amer) 46 (> 60) L 11/15/16 06:35 Est GFR (Non-Af Amer) 38 (> 60) L 11/15/16 06:35 BUN/Creatinine Ratio 33 (6-26) H 11/15/16 06:35 Glucose 102 mg/dL (70-99) H 11/15/16 06:35 Calculated Osmolality 315 (280-300) H 11/15/16 06:35 Iron 41 mcg/dL (65-175) L 11/11/16 09:22 Transferrin 138 mg/dL (174-364) L 11/11/16 09:22 Ferritin 1554 ng/ml (22-275) H 11/11/16 09:22 Total Bilirubin 2.4 mg/dL (0.2-1.2) H 11/14/16 06:27 Direct Bilirubin 1.4 mg/dL (0.0-0.5) H 11/06/16 17:15 AST 114 Units/L (5-34) H 11/14/16 06:27 ALT 65 Units/L (0-55) H 11/14/16 06:27 Alkaline Phosphatase 458 Units/L (38-126) H 11/14/16 06:27 Lactate Dehydrogenase > 3325 Units/L (159-327) H 11/11/16 09:22 Creatine Kinase 468 Units/L (30-200) H 11/06/16 18:06 Serum Total Protein 5.6 g/dL (6.0-8.3) L 11/14/16 06:27 Albumin 1.6 g/dL (3.5-5.0) L 11/14/16 06:27 Globulin 4.0 g/dL (2.4-3.5) H 11/14/16 06:27 Albumin/Globulin Ratio 0.4 (1.1-2.2) L 11/14/16 06:27 Vitamin B12 > 2000 pg/mL (213-816) H 11/11/16 09:22 Folate 5.4 ng/mL (7.0-31.4) L 11/11/16 09:22 Urine Clarity Turbid (Clear) A 11/14/16 13:20 Urine Protein 30 mg/dL (Neg-Trace) H 11/14/16 13:20 Urine Blood Moderate (Negative) H 11/14/16 13:20 Ur Leukocyte Esterase Trace (Negative) H 11/14/16 13:20 Urine Microscopic RBC 3-5 per hpf (0-3) H 11/14/16 13:20 Urine Microscopic WBC 15-30 per hpf (0-3) H 11/14/16 13:20 Ur Squamous Epith Cells Many per lpf (None-Few) H 11/14/16 13:20 Granular Casts Moderate per lpf (None Seen) H 11/14/16 13:20 Ur Culture Indicated? YES (NO) A 11/14/16 13:20 General appearance: Present: no acute distress - Respiratory Respiratory exam: Present: decreased breath sounds Additional comments: Crackles RLL, breath sounds course throughout - Cardiovascular Cardiovascular exam: Present: +S1, +S2 - GI/Abdominal GI/Abdominal exam: Present: normal bowel sounds, soft - Additional comments: [place] with yellow urine - Extremities Exam Additional comments: 2+ edema upper and lower extremities - Neurological Exam Additional comments: Lethargic, possibly r/t benzodiazepines administered last pm. Does not follow commands this am. - Skin Skin exam: Present: dry, warm Palliative Quality Palliative Quality: Screen for Code Status: Yes, Screen for Goals of Care: Yes, Screen for Pain: Yes, If Pain Regimen Started, Initiate Bowel Regimen: NA ( Kayexelate inducing diarrhea), Screen for Nausea/Vomitting: Yes - Labs CBC & Chem 7: 11/15/16 05:56 11/15/16 06:35 Labs: Laboratory Results - last 24 hr 11/14/16 11/14/16 11/14/16 13:20 17:51 20:01 WBC RBC Hgb Hct MCV MCH MCHC RDW Plt Count MPV Immature Gran % Seg Neutrophils % Lymphocytes % Monocytes % Eosinophils % Basophils % Neutrophils # Lymphocytes # Monocytes # Eosinophils # Basophils # Sodium Potassium Chloride Carbon Dioxide BUN Creatinine Est GFR ( Amer) Est GFR (Non-Af Amer) BUN/Creatinine Ratio Glucose POC Glucose 140 H 115 H Calculated Osmolality Calcium Urine Color Yellow Urine Clarity Turbid A Urine pH 6.0 Ur Specific [place] 1.015 Urine Protein 30 H Urine Glucose (UA) Normal Urine Ketones Negative Urine Blood Moderate H Urine Nitrite Negative Urine Bilirubin Negative Urine Urobilinogen Normal Ur Leukocyte Esterase Trace H Urine Microscopic RBC 3-5 H Urine Microscopic WBC 15-30 H Ur Squamous Epith Cells Many H Urine Bacteria None Seen Hyaline Casts Test Not Performed Granular Casts Moderate H Urine Yeast Test Not Performed Ur Culture Indicated? YES A Specimen Rejected 11/14/16 11/15/16 11/15/16 23:45 03:43 05:56 WBC 10.1 RBC 3.12 L Hgb 9.4 L Hct 29.4 L MCV 94.2 MCH 30.1 MCHC 32.0 RDW 17.8 H Plt Count 154 MPV 10.7 Immature Gran % 2.3 Seg Neutrophils % 88.7 Lymphocytes % 4.0 Monocytes % 4.7 Eosinophils % 0.1 Basophils % 0.2 Neutrophils # 9.0 H Lymphocytes # 0.4 L Monocytes # 0.5 Eosinophils # 0.0 Basophils # 0.0 Sodium Potassium Chloride Carbon Dioxide BUN Creatinine Est GFR ( Amer) Est GFR (Non-Af Amer) BUN/Creatinine Ratio Glucose POC Glucose 88 88 Calculated Osmolality Calcium Urine Color Urine Clarity Urine pH Ur Specific [place] Urine Protein Urine Glucose (UA) Urine Ketones Urine Blood Urine Nitrite Urine Bilirubin Urine Urobilinogen Ur Leukocyte Esterase Urine Microscopic RBC Urine Microscopic WBC Ur Squamous Epith Cells Urine Bacteria Hyaline Casts Granular Casts Urine Yeast Ur Culture Indicated? Specimen Rejected 11/15/16 11/15/16 05:56 06:35 WBC RBC Hgb Hct MCV MCH MCHC RDW Plt Count MPV Immature Gran % Seg Neutrophils % Lymphocytes % Monocytes % Eosinophils % Basophils % Neutrophils # Lymphocytes # Monocytes # Eosinophils # Basophils # Sodium 144 Potassium 4.9 H Chloride 117 H Carbon Dioxide 21 BUN 59 H Creatinine 1.79 H Est GFR ( Amer) 46 L Est GFR (Non-Af Amer) 38 L BUN/Creatinine Ratio 33 H Glucose 102 H POC Glucose Calculated Osmolality 315 H Calcium 8.7 Urine Color Urine Clarity Urine pH Ur Specific [place] Urine Protein Urine Glucose (UA) Urine Ketones Urine Blood Urine Nitrite Urine Bilirubin Urine Urobilinogen Ur Leukocyte Esterase Urine Microscopic RBC Urine Microscopic WBC Ur Squamous Epith Cells Urine Bacteria Hyaline Casts Granular Casts Urine Yeast Ur Culture Indicated? Specimen Rejected Hemolyzed - ABG Interpretation ABG results: PT/INR, D-dimer PT 12.2 Seconds (9.4-12.1) H 11/06/16 18:06 Consult Discharge Plan - Plan [facility]errals: [facility] [Primary Care Provider[facility] - 11/15/16 3:30 pm ([facility] will go [facility]...)
[2016-11-15] MEDS ORDERED: *HR* Metoprolol 5 MG/5 ML VIAL IVP PRN (09:21)
[2016-11-15] MEDS: 0.9 % Sodium Chloride 1,000 ML IVC SCH (10:00)
--- NOTE | 2016-11-15 10:45 | Internal Med Progress Note ---
Date of Encounter: 11/15/16 Time of Encounter: 10:45 - Assessment and plan (1) Altered mental status Current Visit: Yes Status: Acute Assessment and plan: Multifactorial , medications, progression of disease JEWEL Protecting his airway at this time Low threshold foe intubation, patient is full code Qualifiers: Altered mental status type: unspecified Qualified Code(s): R41.82 - Altered mental status, unspecified (2) Abdominal pain Current Visit: Yes Status: Acute Assessment and plan: Secondary to malignancy All pain meds held due to patient's lethragy and inability to swallow Palliative care and Oncology are following Qualifiers: Abdominal location: right upper quadrant Qualified Code(s): R10.11 - Right upper quadrant pain (3) Acute kidney injury Current Visit: Yes Status: Acute Assessment and plan: Prerenal JEWEL secondary to dehydration. Patient has high-risk for tumor lysis syndrome. Renal function today is stable from yesterday, patient is making adequate urine D/C Vancomycin 11/13/16, patient has received 8 days of therapy Potassium level improved Uric acid is WNL Consult renal prn (4) Hyperkalemia Current Visit: Yes Status: Acute Assessment and plan: Stable K Monitor closely (5) Pneumonia Current Visit: Yes Status: Acute Assessment and plan: CT chest shows Right lower lobe infiltrate concerning for pneumonia. 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 Multiple liver metastasis with hepatomegaly. Started palliative chemotherapy per oncology recommendations: Cycle 1 day 8 of cisplatin plus etoposide regimen today. Continue Allopurinol 200 mg by mouth at bedtime CT abdomen and pelvis with oral contrast shows no changes in liver mets, no evidence of obstruction. Palliative care following Patient is very ill, condition is serious Oncology is following (7) Cancer associated pain Current Visit: Yes Status: Acute Assessment and plan: as in abdominal pain (8) Tumor-induced hypophosphatemia Current Visit: Yes Status: Resolved Assessment and plan: Resolved (9) Anemia Current Visit: Yes Status: Chronic Assessment and plan: Predates chemotherapy. Hematology/oncology recommends transfusion support as needed to maintain hemoglobin of 7 or greater and platelet count of 30,000 or greater. Normocytic Anemia in the setting of chronic disease with folate deficiency. Continue to monitor No evidence of hemolysis HB continues to be stable Qualifiers: Anemia type: folate deficiency Folate deficiency anemia type: unspecified folate deficiency Qualified Code(s): D52.9 - Folate deficiency anemia, unspecified (10) Aspiration into airway Current Visit: Yes Status: Acute Assessment and plan: NPO Consult speech and swallow Qualifiers: Encounter type: initial encounter Qualified Code(s): T17.908A - Unspecified foreign body in respiratory tract, part unspecified causing other injury, initial encounter - Subjective Interval history: 66 M being managed for metastatic liver CA-neuroendocrine he is receiving chemo in-patient and being followed by oncology Additional diagnoses in this admission include Pneumonia and JEWEL He is seen at bedside this morning Overnight, patient was said to have been agitated and getting up in bed Of note, patient is extremely lethargic up to not being able to swallow his food or meds, he had received Ativan and Haldol in the early hours of this morning During review, he only opens his eyes to sternal rub I asked for a stat ammonia level that is normal His JEWEL is unchanged as his Creatinine is stable but his liver function test seems to be improving Patient is very poor prognosis He is full code and is at risk for mechanical intubation due to his mental status and respiratory status At this time, he is protecting his airway - Constitutional Vitals: Temp Pulse Resp BP Pulse Ox 97.4 F L 116 18 161/83 90 11/15/16 07:40 11/15/16 07:40 11/15/16 07:40 11/15/16 07:40 11/15/16 07:40 General appearance: Present: cachectic, A&O X 0, cooperative, disheveled, underweight - Head Head exam: Present: atraumatic, normocephalic - Eye Eye exam: Present: PERRL, conjuntiva pink, sclera anicteric Pupils: Present: PERRL - Neck Neck exam general surgery: Present: supple, trachea midline. Absent: lymphadenopathy - Respiratory Respiratory exam: Present: CTAB. Absent: accessory muscle use, rales, rhonchi, wheezes - Cardiovascular Cardiovascular exam: Present: RRR, +S1, +S2. Absent: diastolic murmur, gallop, rubs, systolic murmur - GI/Abdominal GI/Abdominal exam: Present: normal bowel sounds, soft, no peritoneal signs. Absent: distended, tenderness - Extremities Exam Extremities exam: Present: pedal edema (1+ pedal edema bilaterally, no ulcers seen a this time), warm, radial pulses palpable and symetrical. Absent: calf tenderness, cyanotic - Neurological Exam Neurological exam: Present: CN II-XII intact. Absent: alert, oriented X3, no focal deficits, pronater drift, facial droop, speech deficit - Skin Skin exam: Present: dry Internal Medicine: Result - Labs CBC & Chem 7: 11/15/16 05:56 11/15/16 06:35 Labs: Short CBC 11/15/16 Range/Units 05:56 WBC 10.1 (4.3-11.1) K/mcL Hgb 9.4 L (12.9-16.9) g/dL Hct 29.4 L (37.5-50.1) % Plt Count 154 (140-400) K/mcL Neutrophils # 9.0 H (1.6-8.9) K/mcL BMP 11/15/16 06:35 Sodium 144 Potassium 4.9 H Chloride 117 H Carbon Dioxide 21 BUN 59 H Creatinine 1.79 H Glucose 102 H Calcium 8.7 Urine 11/14/16 Range/Units 13:20 Urine Color Yellow (Yellow) Urine Clarity Turbid A (Clear) Urine pH 6.0 (5.0-8.0) pH Units Ur Specific [place] 1.015 (1.010-1.025) Urine Protein 30 H (Neg-Trace) mg/dL Urine Glucose (UA) Normal (Normal) mg/dL - ABG Interpretation ABG results: PT/INR, D-dimer PT 12.2 Seconds (9.4-12.1) H 11/06/16 18:06 Consult Discharge Plan - Plan [facility]errals: [facility] [Primary Care Provider] - (Patient will follow up with PCP at the [facility])
[2016-11-15] MEDS: Folic Acid 1 MG TABLET PO SCH (11:02)
[2016-11-15] MEDS: Sennosides/Docusate Sodium TABLET PO SCH ×2 (11:03→22:17)
[2016-11-15] MEDS: predniSONE 10 MG TABLET PO SCH (11:03)
[2016-11-15] MEDS: Gabapentin 300 MG CAPSULE PO SCH (11:03)
--- NOTE | 2016-11-15 11:04 | Oncology Inp Progress Note ---
Date of Encounter: 11/15/16 Time of Encounter: 11:01 (1) Metastatic malignant neuroendocrine tumor to liver Current Visit: Yes Status: Acute Assessment and plan: -Currently on cycle 1 day 8 of cisplatin plus etoposide regimen ( modified regimen: 2 days for better tolerability). - Total bilirrubin values continue to drop, what I suspect is the result of recent chemotherapy ( in view that cholestasis was more likely cancer related, without evidence of CBD obstruction). - He is not experiencing significant myelosupression following chemotherapy. Continue checking CBC daily. - His CT abdomen from 11/11 revealed unchanged metastatic lesions, although probably it was too early to assess for response. (2) Lethargy Current Visit: Yes Status: Acute Assessment and plan: - Still lethargic, probably secondary to sedation related to recent administration of gabapentin/morphine ( in view of the prolonged half life of both drugs in the presence of acute kidney injury). May consider to discuss with palliative care about the option to decrease the dose of seroquel since it may be contributing to his lethargy, keeping in mind that it may be resumed to his home dose once his lethargy has resolved. - I suspect that possible aspiration episode was related to lethargic/sedation, so it seems reasonable to keep him NPO until his lethargy has improved. I agree with swallow evaluation for further input. - If his lethargy does not improve (and his NPO status gets prolonged) during the next 24-48 hours, it would be a very poor prognostic indicator and would require to address the goals of care with patient's family. - I appreciate palliative care input. Currently pain management with dilaudid low dose IV PRN. - Please Check Ammonia level. If levels are elevated, consider regimen with lactulose. - Monitor LFTs daily (3) Anemia Current Visit: Yes Status: Chronic Assessment and plan: - More likely multifactorial, with mild drop secondary to recent chemotherapy. - Continue folate replacement ( in view of low folate levels) Qualifiers: Anemia type: folate deficiency Folate deficiency anemia type: unspecified folate deficiency Qualified Code(s): D52.9 - Folate deficiency anemia, unspecified (4) Acute kidney injury Current Visit: Yes Status: Acute Assessment and plan: -Persistent JEWEL with associated hyperkalemia, what probably is contributing to lethargy/sedation ( due to prolonged half life of morphine/gabapentin). - Recent uric acid, phosphorus, Mg, calcium within normal limits. - Consider monitoring LDH, Mg, Ca, Phosphorus daily. Oncology: Subj Interval history: Mr. Vega was seen and examined. There were not visitors during the visit. He remains lethargic/sedated, opening his eyes for a few seconds when called by name. He is moving his upper extremities spontaneously, but not following commands. He has been placed in NPO status due to concerns for aspiration. - Constitutional Vitals: Vital Signs Temp Pulse Resp BP Pulse Ox 11/15/16 09:30 90 11/15/16 07:40 97.4 F L 116 18 161/83 90 11/15/16 05:30 117 18 139/76 93 11/15/16 03:59 98.8 F 117 20 165/88 93 11/14/16 23:40 98.3 F 113 19 151/72 93 11/14/16 22:20 18 94 11/14/16 20:49 94 11/14/16 19:57 97.6 F 107 19 153/79 90 11/14/16 16:07 97.8 F 116 18 157/76 95 11/14/16 16:03 18 95 11/14/16 12:08 119 20 135/72 92 11/14/16 11:54 97.9 F 123 26 142/72 91 Intake and Output 11/14/16 11/15/16 11/15/16 23:59 07:59 15:59 Intake Total 1100 / 1100 100 / 100 0 / 0 Output Total 1150 / 1150 650 / 650 450 / 450 Balance -50 / -50 -550 / -550 -450 / -450 Intake: IV Fluids 1100 / 1100 100 / 100 0.9 % Sodium Chloride 1, 1000 / 1000 000 ML @ 75 mls/hr IVC . [id number] [facility] Rx#: [id number] Maxipime 1,000 MG In 100 / 100 100 / 100 Dextrose 5% (Minibag+) 100 ML 100 ML @ 200 mls/ hr IVPB Q12HR [facility] Rx#: [id number] Oral 0 / 0 0 / 0 Output: Urine 0 / 0 Catheter 1150 / 1150 650 / 650 450 / 450 Other: Meal NPO npo Weight 64.6 kg Blood Glucose* 88 100 Patient Weight 11/15/16 23:59 Weight 64.6 kg - Head Head exam: Present: normal inspection - Eye Additional comments: symmetric pupils and reactive to light. - Neck Neck exam: Present: normal inspection - Respiratory Respiratory exam: Present: CTAB - Cardiovascular Cardiovascular exam: Present: RRR - GI/Abdominal Additional comments: There is not tenderness to palpation. no organomegaly - Extremities Exam Extremities exam: Present: pedal edema. Absent: tenderness - Neurological Exam Neurological exam: Present: altered Additional comments: unable to complete focal neurologic exam due to lethargy - Psychiatric Additional comments: lethargic Oncology: Obj Data - Labs CBC & Chem 7: 11/15/16 05:56 11/15/16 06:35 Labs: Laboratory Results - last 24 hr 11/14/16 11/14/16 11/14/16 13:20 17:51 20:01 WBC RBC Hgb Hct MCV MCH MCHC RDW Plt Count MPV Immature Gran % Seg Neutrophils % Lymphocytes % Monocytes % Eosinophils % Basophils % Neutrophils # Lymphocytes # Monocytes # Eosinophils # Basophils # Sodium Potassium Chloride Carbon Dioxide BUN Creatinine Est GFR ( Amer) Est GFR (Non-Af Amer) BUN/Creatinine Ratio Glucose POC Glucose 140 H 115 H Calculated Osmolality Calcium Ammonia Urine Color Yellow Urine Clarity Turbid A Urine pH 6.0 Ur Specific [place] 1.015 Urine Protein 30 H Urine Glucose (UA) Normal Urine Ketones Negative Urine Blood Moderate H Urine Nitrite Negative Urine Bilirubin Negative Urine Urobilinogen Normal Ur Leukocyte Esterase Trace H Urine Microscopic RBC 3-5 H Urine Microscopic WBC 15-30 H Ur Squamous Epith Cells Many H Urine Bacteria None Seen Hyaline Casts Test Not Performed Granular Casts Moderate H Urine Yeast Test Not Performed Ur Culture Indicated? YES A Specimen Rejected 11/14/16 11/15/16 11/15/16 23:45 03:43 05:56 WBC 10.1 RBC 3.12 L Hgb 9.4 L Hct 29.4 L MCV 94.2 MCH 30.1 MCHC 32.0 RDW 17.8 H Plt Count 154 MPV 10.7 Immature Gran % 2.3 Seg Neutrophils % 88.7 Lymphocytes % 4.0 Monocytes % 4.7 Eosinophils % 0.1 Basophils % 0.2 Neutrophils # 9.0 H Lymphocytes # 0.4 L Monocytes # 0.5 Eosinophils # 0.0 Basophils # 0.0 Sodium Potassium Chloride Carbon Dioxide BUN Creatinine Est GFR ( Amer) Est GFR (Non-Af Amer) BUN/Creatinine Ratio Glucose POC Glucose 88 88 Calculated Osmolality Calcium Ammonia Urine Color Urine Clarity Urine pH Ur Specific [place] Urine Protein Urine Glucose (UA) Urine Ketones Urine Blood Urine Nitrite Urine Bilirubin Urine Urobilinogen Ur Leukocyte Esterase Urine Microscopic RBC Urine Microscopic WBC Ur Squamous Epith Cells Urine Bacteria Hyaline Casts Granular Casts Urine Yeast Ur Culture Indicated? Specimen Rejected 11/15/16 11/15/16 11/15/16 05:56 06:35 08:56 WBC RBC Hgb Hct MCV MCH MCHC RDW Plt Count MPV Immature Gran % Seg Neutrophils % Lymphocytes % Monocytes % Eosinophils % Basophils % Neutrophils # Lymphocytes # Monocytes # Eosinophils # Basophils # Sodium 144 Potassium 4.9 H Chloride 117 H Carbon Dioxide 21 BUN 59 H Creatinine 1.79 H Est GFR ( Amer) 46 L Est GFR (Non-Af Amer) 38 L BUN/Creatinine Ratio 33 H Glucose 102 H POC Glucose Calculated Osmolality 315 H Calcium 8.7 Ammonia 36 Urine Color Urine Clarity Urine pH Ur Specific [place] Urine Protein Urine Glucose (UA) Urine Ketones Urine Blood Urine Nitrite Urine Bilirubin Urine Urobilinogen Ur Leukocyte Esterase Urine Microscopic RBC Urine Microscopic WBC Ur Squamous Epith Cells Urine Bacteria Hyaline Casts Granular Casts Urine Yeast Ur Culture Indicated? Specimen Rejected Hemolyzed - ABG Interpretation ABG results: PT/INR, D-dimer PT 12.2 Seconds (9.4-12.1) H 11/06/16 18:06 Consult Discharge Plan - Plan [facility]errals: [facility] [Primary Care Provider] - (Patient will follow up with PCP at the [facility])
[2016-11-15] MEDS: Lidocaine 4% CREAM (LMX) 5 GM TP SCH (11:06)
[2016-11-15] MEDS: Budesonide Neb 0.25 MG/2 ML IH SCH ×2 (11:14→20:53)
[2016-11-15] MEDS ORDERED: *HR* Metoprolol 5 MG/5 ML VIAL IVP SCH (12:00)
[2016-11-15] MEDS: *HR* Metoprolol 5 MG/5 ML VIAL IVP SCH ×2 (18:15→23:09)
[2016-11-16] MEDS: 0.9 % Sodium Chloride 1,000 ML IVC SCH (01:00)
[2016-11-16] MEDS ORDERED: *HR* LORazepam 2 MG/ML VIAL IVP ONE (03:09)
[2016-11-16] MEDS: Ipratropium/Albuterol Neb 3 ML IH SCH ×3 (03:43→16:33)
[2016-11-16] MEDS: *HR* Enoxaparin 30 MG/0.3 ML SYRINGE SQ SCH (05:02)
[2016-11-16] MEDS: *HR* Metoprolol 5 MG/5 ML VIAL IVP SCH ×2 (05:02→12:39)
[2016-11-16] MEDS: Cefepime HCl 1,000 MG in D5% in Water (Mini-Bag+) 100 ML IVPB SCH (05:03)
[2016-11-16 06:26] LABS: Basophils % 0.3 %; Eosinophils # 0.1 K/mcL (0.0-0.6); Eosinophils % 0.9 %; Hematocrit 27.7 % (37.5-50.1); Hemoglobin 8.8 g/dL (12.9-16.9); Immature Granulocytes % 1.8 % (0-4); Lymphocytes # 0.6 K/mcL (0.6-4.6); Lymphocytes % 7.7 %; Mean Corpuscular HGB Conc 31.8 g/dL (31.6-35.5); Mean Corpuscular Hemoglobin 29.3 pg (28.0-33.3); Mean Corpuscular Volume 92.3 fL (83.0-100.0); Mean Platelet Volume 10.7 fL (9.4-12.4); Monocytes # 0.6 K/mcL (0.0-1.3); Monocytes % 8.1 %; Neutrophils # 6.3 K/mcL (1.6-8.9); Platelet Count 124 K/mcL (140-400); Red Cell Distribution Width 17.1 % (11.5-14.5); Segmented Neutrophils % 81.2 %
[2016-11-16 07:25] LABS: Albumin 1.5 g/dL (3.5-5.0); Albumin/Globulin Ratio 0.4 (1.1-2.2); Calcium 8.8 mg/dL (8.6-10.8); Globulin 3.8 g/dL (2.4-3.5); Potassium 4.4 mEq/L (3.5-4.5); Total Protein 5.3 g/dL (6.0-8.3)
[2016-11-16 07:33] LABS: Bilirubin,Total 2.1 mg/dL (0.2-1.2)
[2016-11-16] MEDS: Gabapentin 300 MG CAPSULE PO SCH (07:54)
[2016-11-16] MEDS: Folic Acid 1 MG TABLET PO SCH (07:54)
[2016-11-16] MEDS: predniSONE 10 MG TABLET PO SCH (07:54)
[2016-11-16] MEDS: Sennosides/Docusate Sodium TABLET PO SCH (07:54)
--- NOTE | 2016-11-16 08:28 | Internal Med Progress Note ---
<DmitriNeptali - Last Filed: 11/16/16 12:49> Date of Encounter: 11/16/16 Time of Encounter: 08:26 - Assessment and plan (1) Metastatic malignant neuroendocrine tumor to liver Current Visit: Yes Status: Acute Assessment and plan: Liver, biopsy: Positive for carcinoma with neuroendocrine features, This tumor is aggressive and behaving clinically like small cell carcinoma. Multiple liver metastasis with hepatomegaly. Started palliative chemotherapy per oncology recommendations: Cycle 1 day 9 of cisplatin plus etoposide regimen today. Continue Allopurinol 200 mg by mouth at bedtime Palliative care following, appreciate assistance in speaking with lifelong girlfriend (DPOA) about goals of care (2) Altered mental status Current Visit: Yes Status: Acute Assessment and plan: Multifactorial, secondary to medications given for agitation and progression of cancer He is protecting his airway but he may need intubation if he further declines Will keep NPO for now and avoid sedatives as much as possible Qualifiers: Altered mental status type: unspecified Qualified Code(s): R41.82 - Altered mental status, unspecified (3) Cancer associated pain Current Visit: Yes Status: Acute Assessment and plan: Secondary to aggressive neuroendocrine tumor Palliative care managing pain meds as he cannot tolerate anything by mouth (4) Aspiration into airway Current Visit: Yes Status: Acute Assessment and plan: NPO for now Speech therapy unable to properly assess patient last few days due to AMS He may need artificial feeding tube at some point, discussion with girlfriend necessary Qualifiers: Encounter type: initial encounter Qualified Code(s): T17.908A - Unspecified foreign body in respiratory tract, part unspecified causing other injury, initial encounter (5) Pneumonia Current Visit: Yes Status: Acute Assessment and plan: CT chest shows right lower lobe infiltrate concerning for pneumonia. He completed 8 days Vancomycin and continue on Cefepime and d/c after 8 days) Qualifiers: Pneumonia type: due to unspecified organism Laterality: right Lung location: lower lobe of lung Qualified Code(s): J18.1 - Lobar pneumonia, unspecified organism (6) Acute kidney injury Current Visit: Yes Status: Resolved Assessment and plan: Cr improving, likely from dehydration Gentle hydration while NPO Vanc d/rome and electrolytes WNL Code(s): N17.9 - Acute kidney failure, unspecified (7) DVT prophylaxis Current Visit: Yes Status: Acute Assessment and plan: Lovenox SQ - Subjective Interval history: Pt seen and examined. He is lethargic but does answer questions appropriately. No family at bedside. He states he isn't feeling well, but does not endorse any pain, SOB, fevers. However he does report nausea but cannot tell me if he had any vomiting or diarrhea. - Constitutional Vitals: Temp Pulse Resp BP Pulse Ox 98.2 F 115 18 155/83 96 11/16/16 04:45 11/16/16 04:45 11/16/16 04:45 11/16/16 04:45 11/16/16 04:45 General appearance: Present: cachectic, A&O X 0, cooperative, disheveled, underweight - Head Head exam: Present: atraumatic, normocephalic - Eye Eye exam: Present: PERRL, conjuntiva pink, sclera anicteric - Neck Neck exam general surgery: Present: supple, trachea midline. Absent: lymphadenopathy - Respiratory Respiratory exam: Present: CTAB. Absent: accessory muscle use, rales, rhonchi, wheezes - Cardiovascular Cardiovascular exam: Present: +S1, +S2, tachycardia. Absent: diastolic murmur, gallop, rubs, systolic murmur - GI/Abdominal GI/Abdominal exam: Present: normal bowel sounds, soft, no peritoneal signs. Absent: distended, tenderness - Extremities Exam Extremities exam: Present: pedal edema (2+ pitting), warm, radial pulses palpable and symetrical. Absent: calf tenderness, cyanotic - Neurological Exam Neurological exam: Present: alert, no focal deficits. Absent: oriented X3, facial droop, speech deficit - Skin Skin exam: Present: dry, intact Internal Medicine: Result - Labs CBC & Chem 7: 11/16/16 05:56 11/16/16 07:01 Labs: Short CBC 11/16/16 Range/Units 05:56 WBC 7.8 (4.3-11.1) K/mcL Hgb 8.8 L (12.9-16.9) g/dL Hct 27.7 L (37.5-50.1) % Plt Count 124 L (140-400) K/mcL Neutrophils # 6.3 (1.6-8.9) K/mcL BMP 11/16/16 07:01 Sodium 145 Potassium 4.4 Chloride 117 H Carbon Dioxide 17 L BUN 55 H Creatinine 1.63 H Glucose 78 Calcium 8.8 Liver Function 11/16/16 Range/Units 07:01 Total Bilirubin 2.1 H (0.2-1.2) mg/dL AST 81 H (5-34) Units/L ALT 50 (0-55) Units/L Alkaline Phosphatase 461 H (38-126) Units/L Albumin 1.5 L (3.5-5.0) g/dL - ABG Interpretation ABG results: PT/INR, D-dimer PT 12.2 Seconds (9.4-12.1) H 11/06/16 18:06 Consult Discharge Plan - Plan [facility]errals: [facility] [Primary Care Provider] - (Patient will follow up with PCP at the [facility]) <Donovan Sagastume - Last Filed: 11/16/16 19:27> Date of Encounter: 11/16/16 - Assessment and plan (1) Metastatic malignant neuroendocrine tumor to liver Current Visit: Yes Status: Acute (2) Small cell lung cancer Current Visit: Yes Status: Acute Qualifiers: Laterality: unspecified laterality Qualified Code(s): C34.90 - Malignant neoplasm of unspecified part of unspecified bronchus or lung (3) Aspiration pneumonia Current Visit: Yes Status: Acute Qualifiers: Aspiration pneumonia type: due to regurgitated food Laterality: right Lung location: unspecified part of lung Qualified Code(s): J69.0 - Pneumonitis due to inhalation of food and vomit (4) Generalized weakness Current Visit: Yes Status: Acute (5) Restlessness and agitation Current Visit: Yes Status: Acute (6) Malnutrition Current Visit: Yes Status: Acute Qualifiers: Malnutrition type: protein-calorie malnutrition Protein-calorie malnutrition severity: moderate Qualified Code(s): E44.0 - Moderate protein- calorie malnutrition (7) Dysphagia Current Visit: Yes Status: Acute Qualifiers: Dysphagia type: oral phase Qualified Code(s): R13.11 - Dysphagia, oral phase - Constitutional Vitals: Temp Pulse Resp BP Pulse Ox 98.5 F 110 14 176/97 95 11/16/16 14:37 11/16/16 14:37 11/16/16 14:37 11/16/16 14:37 11/16/16 14:37 Internal Medicine: Result - Labs CBC & Chem 7: 11/16/16 05:56 11/16/16 07:01 Labs: Short CBC 11/16/16 Range/Units 05:56 WBC 7.8 (4.3-11.1) K/mcL Hgb 8.8 L (12.9-16.9) g/dL Hct 27.7 L (37.5-50.1) % Plt Count 124 L (140-400) K/mcL Neutrophils # 6.3 (1.6-8.9) K/mcL BMP 11/16/16 07:01 Sodium 145 Potassium 4.4 Chloride 117 H Carbon Dioxide 17 L BUN 55 H Creatinine 1.63 H Glucose 78 Calcium 8.8 Liver Function 11/16/16 Range/Units 07:01 Total Bilirubin 2.1 H (0.2-1.2) mg/dL AST 81 H (5-34) Units/L ALT 50 (0-55) Units/L Alkaline Phosphatase 461 H (38-126) Units/L Albumin 1.5 L (3.5-5.0) g/dL - ABG Interpretation ABG results: PT/INR, D-dimer PT 12.2 Seconds (9.4-12.1) H 11/06/16 18:06 - Attending Attestation I examined this patient and my medical decision-making was reviewed with the Resident Physician on 11/16/16. I agree with the documented findings, disposition and treatment plan as described except to the extent set forth below. Mr Vega is currently admitted for new diagnosis of small cell lung cancer with mets. He is high risk due to active chemo and progressive decline. Mr Vega continues to be somnolent. When awake he is unable to swallow and did not tolerate NG. Not candidate for TPN currently. Discussion with POA and he is now DNRCC. Exam Alert. Confused. Mucus membranes dry Heart reg Lungs coarse Abd soft Edema throughout. I/P 1. Metatstatic small cell lung cancer 2. Active decline 3. Dysphagia Currently comfort care. Further diagnoses and plan as above.
[2016-11-16] MEDS ORDERED: Aminoglycoside Consult 1 EACH MC ONE (09:02)
--- NOTE | 2016-11-16 09:27 | Palliative Progress Note ---
Date of Encounter: 11/16/16 Time of Encounter: 09:25 - Assessment and plan (1) Restlessness and agitation Current Visit: Yes Status: Acute Assessment and plan: Order sitter PRN. AVOID SEDATIVES IF AT ALL POSSIBLE. He has been receiving at night, and pt sleeping most of day, making interaction with him from all disciplines very difficult. He may need redirection and frequent re- orientation at night. (2) Malnutrition Current Visit: Yes Status: Acute Assessment and plan: Albumin 1.5. He has been too lethargic and unable to work with speech and follow commands. Will D/W girlfriend Joana this afternoon when she arrives. (3) Cancer associated pain Current Visit: Yes Status: Acute Assessment and plan: Continue low dose Dilaudid while NPO. Only received x1 last 24 hours (4) Constipation due to opioid therapy Current Visit: Yes Status: Acute Assessment and plan: Senokot on hold r/tNPO. Did have good BM 8/2. Has suppository ordered if needed. MOnitor (5) Nausea & vomiting Current Visit: Yes Status: Acute Qualifiers: Vomiting type: unspecified Vomiting Intractability: unspecified Qualified Code(s): R11.2 - Nausea with vomiting, unspecified (6) Generalized weakness Current Visit: Yes Status: Acute Assessment and plan: Continue PT/OT as pt tolerates (7) Counseling regarding advanced care planning and goals of care Current Visit: Yes Status: Acute Assessment and plan: Further discussion with girlfriend today. Will need to discuss nutritional options. (8) Metastatic malignant neuroendocrine tumor to liver Current Visit: Yes Status: Acute - Time Spent With Patient Total time spent is greater than 50% in coordination of care (as documented) at patient's floor/unit and/or counseling patient: 25 - 35 minutes - Subjective Interval history: Patient received Ativan again last night, no documentation in record of patient' s behavior. He is drowsy this am, however, does awaken and answer few "yes/no" questions, but he is confused. Cannot stay awake for conversation. Labs reviewed. Renal function slightly better and liver enzymes continue to decrease. He has been unable to participate in speech or therapy r/t lethargy during the day. Most likely r/t benzo administration. - Constitutional Vitals: Abnormal lab results RBC 3.00 M/mcL (4.19-5.50) L 08/04/17 05:56 Hgb 8.8 g/dL (12.9-16.9) L 11/16/16 05:56 Hct 27.7 % (37.5-50.1) L 11/16/16 05:56 RDW 17.1 % (11.5-14.5) H 11/16/16 05:56 Plt Count 124 K/mcL (140-400) L 11/16/16 05:56 Anisocytosis 1+ (Not Present) A 11/12/16 03:22 Percent Retic 1.4 % (1.6-2.8) L 11/11/16 09:22 Immature Retic Fraction 7.6 % (11.0-38.0) L 11/11/16 09:22 PT 12.2 Seconds (9.4-12.1) H 11/06/16 18:06 Chloride 117 mEq/L (98-109) H 11/16/16 07:01 Carbon Dioxide 17 mEq/L (19-29) L 11/16/16 07:01 BUN 55 mg/dL (8-26) H 11/16/16 07:01 Creatinine 1.63 mg/dL (0.72-1.25) H 11/16/16 07:01 Est GFR ( Amer) 51 (> 60) L 11/16/16 07:01 Est GFR (Non-Af Amer) 42 (> 60) L 11/16/16 07:01 BUN/Creatinine Ratio 34 (6-26) H 11/16/16 07:01 Calculated Osmolality 314 (280-300) H 11/16/16 07:01 Iron 41 mcg/dL (65-175) L 11/11/16 09:22 Transferrin 138 mg/dL (174-364) L 11/11/16 09:22 Ferritin 1554 ng/ml (22-275) H 11/11/16 09:22 Total Bilirubin 2.1 mg/dL (0.2-1.2) H 11/16/16 07:01 Direct Bilirubin 1.4 mg/dL (0.0-0.5) H 11/06/16 17:15 AST 81 Units/L (5-34) H 11/16/16 07:01 Alkaline Phosphatase 461 Units/L (38-126) H 11/16/16 07:01 Lactate Dehydrogenase > 3325 Units/L (159-327) H 11/11/16 09:22 Creatine Kinase 468 Units/L (30-200) H 11/06/16 18:06 Serum Total Protein 5.3 g/dL (6.0-8.3) L 11/16/16 07:01 Albumin 1.5 g/dL (3.5-5.0) L 11/16/16 07:01 Globulin 3.8 g/dL (2.4-3.5) H 11/16/16 07:01 Albumin/Globulin Ratio 0.4 (1.1-2.2) L 11/16/16 07:01 Vitamin B12 > 2000 pg/mL (213-816) H 11/11/16 09:22 Folate 5.4 ng/mL (7.0-31.4) L 11/11/16 09:22 Urine Clarity Turbid (Clear) A 11/14/16 13:20 Urine Protein 30 mg/dL (Neg-Trace) H 11/14/16 13:20 Urine Blood Moderate (Negative) H 11/14/16 13:20 Ur Leukocyte Esterase Trace (Negative) H 11/14/16 13:20 Urine Microscopic RBC 3-5 per hpf (0-3) H 11/14/16 13:20 Urine Microscopic WBC 15-30 per hpf (0-3) H 11/14/16 13:20 Ur Squamous Epith Cells Many per lpf (None-Few) H 11/14/16 13:20 Granular Casts Moderate per lpf (None Seen) H 11/14/16 13:20 Ur Culture Indicated? YES (NO) A 11/14/16 13:20 General appearance: Present: no acute distress - Respiratory Respiratory exam: Present: decreased breath sounds, CTAB - Cardiovascular Cardiovascular exam: Present: +S1, +S2, tachycardia - GI/Abdominal GI/Abdominal exam: Present: normal bowel sounds, soft, tenderness Additional comments: Tender RLQ - Extremities Exam Additional comments: Generalized edema to upper and lower extremities - Neurological Exam Additional comments: Arouses with tactile/verbal stimulation. Difficulty staying awake to follow commands - Skin Skin exam: Present: dry, pallor, warm Palliative Quality Palliative Quality: Screen for Code Status: Yes, Screen for Goals of Care: Yes, Screen for Pain: Yes, If Pain Regimen Started, Initiate Bowel Regimen: NA ( Kayexelate inducing diarrhea), Screen for Nausea/Vomitting: Yes - Labs CBC & Chem 7: 11/16/16 05:56 11/16/16 07:01 Labs: Laboratory Results - last 24 hr 11/11/16 11/15/16 11/15/16 09:22 08:56 11:52 WBC RBC Hgb Hct MCV MCH MCHC RDW Plt Count MPV Immature Gran % Seg Neutrophils % Lymphocytes % Monocytes % Eosinophils % Basophils % Neutrophils # Lymphocytes # Monocytes # Eosinophils # Basophils # Sodium Potassium Chloride Carbon Dioxide BUN Creatinine Est GFR ( Amer) Est GFR (Non-Af Amer) BUN/Creatinine Ratio Glucose POC Glucose 82 Calculated Osmolality Calcium Total Bilirubin AST ALT Alkaline Phosphatase Ammonia 36 Serum Total Protein Albumin Globulin Albumin/Globulin Ratio Methylmalonic Acid 0.28 Specimen Rejected 11/16/16 11/16/16 11/16/16 05:56 05:56 07:01 WBC 7.8 RBC 3.00 L Hgb 8.8 L Hct 27.7 L MCV 92.3 MCH 29.3 MCHC 31.8 RDW 17.1 H Plt Count 124 L MPV 10.7 Immature Gran % 1.8 Seg Neutrophils % 81.2 Lymphocytes % 7.7 Monocytes % 8.1 Eosinophils % 0.9 Basophils % 0.3 Neutrophils # 6.3 Lymphocytes # 0.6 Monocytes # 0.6 Eosinophils # 0.1 Basophils # 0.0 Sodium 145 Potassium 4.4 Chloride 117 H Carbon Dioxide 17 L BUN 55 H Creatinine 1.63 H Est GFR ( Amer) 51 L Est GFR (Non-Af Amer) 42 L BUN/Creatinine Ratio 34 H Glucose 78 POC Glucose Calculated Osmolality 314 H Calcium 8.8 Total Bilirubin 2.1 H AST 81 H ALT 50 Alkaline Phosphatase 461 H Ammonia Serum Total Protein 5.3 L Albumin 1.5 L Globulin 3.8 H Albumin/Globulin Ratio 0.4 L Methylmalonic Acid Specimen Rejected Hemolyzed - ABG Interpretation ABG results: PT/INR, D-dimer PT 12.2 Seconds (9.4-12.1) H 11/06/16 18:06 Consult Discharge Plan - Plan [facility]errals: [facility] [Primary Care Provider] - (Patient will follow up with PCP at the [facility])
[2016-11-16] MEDS: Budesonide Neb 0.25 MG/2 ML IH SCH (10:56)
--- NOTE | 2016-11-16 11:06 | Oncology Inp Progress Note ---
Date of Encounter: 11/16/16 Time of Encounter: 11:03 (1) Metastatic malignant neuroendocrine tumor to liver Current Visit: Yes Status: Acute Assessment and plan: -Currently on cycle 1 day 9 ( out of 21 day cycle) of cisplatin plus etoposide regimen ( modified regimen: 2 days for better tolerability). - Total bilirrubin levels continue to trend down following administration of chemotherapy, suggestive of some degree of response. CT abdomen from 11/11 revealed unchanged metastatic lesions, but more likely it was too early to assess for response. - Labs from yesterday revealed grade 2 chemo related thrombocytoepenia along with mild decrease in red and white cell counts. -Monitor CBC daily and transfuse 1 PRBC for Hb less than 7 ( or HCT less than 21 percent ) and 1 pool of platelets for platelet count less than 20K ( or 50K if there is active bleeding). - I attempted to get in touch twice with patient's life time partner to discuss above issues ( Joana) , but unable ( phone constantly busy). (2) Lethargy Current Visit: Yes Status: Acute Assessment and plan: - Definitely looks more awake today, but still quite confused ( oriented x 1), but following commands and answering basic questions. I would recommend to hold off on any medication that could potentially cause sedation or lethargy. - I suspect that possible aspiration episode was related to lethargic/sedation, so it seems reasonable to keep him NPO until his lethargy has improved. I agree with swallow evaluation for further input. - As previously recommended, if his lethargy does not improve ( to the point that he is able to eat without significant risk of aspiration) in the course of the next few days, we would need to discuss goal of care, including alternative options of nutrition. - I appreciate palliative care input. Currently pain management with dilaudid low dose IV PRN. - Please Check Ammonia level. If levels are elevated, consider regimen with lactulose. - Monitor LFTs daily (3) Anemia Current Visit: Yes Status: Chronic Assessment and plan: - More likely multifactorial, with mild drop secondary to recent chemotherapy. - Continue folate replacement ( in view of low folate levels) Qualifiers: Anemia type: folate deficiency Folate deficiency anemia type: unspecified folate deficiency Qualified Code(s): D52.9 - Folate deficiency anemia, unspecified (4) Acute kidney injury Current Visit: Yes Status: Acute Assessment and plan: -Yesterday's labs revealed persistent JEWEL. Consider monitoring renal function daily, since this could be contributing to his lethargy. - Recent uric acid, phosphorus, Mg, calcium within normal limits. - Consider monitoring LDH, Mg, Ca, Phosphorus daily. Oncology: Subj Interval history: He looks more awake today, being able to say his name, following commands ( squeezing my fingers as instructed) denying pain, but still confused and lethargic. Only oriented x 1. He received ativan 1 mg around 3 AM, no documented indication. - Constitutional Vitals: Vital Signs Temp Pulse Resp BP Pulse Ox 11/16/16 08:25 97.9 F 113 19 160/81 94 11/16/16 04:45 98.2 F 115 18 155/83 96 11/16/16 00:02 99.2 F 116 18 167/87 95 11/15/16 22:33 96 11/15/16 20:53 18 92 11/15/16 20:26 98.3 F 112 18 165/82 90 11/15/16 16:24 18 91 11/15/16 15:22 97.9 F 103 16 154/85 92 11/15/16 11:45 97.4 F L 110 18 187/91 90 11/15/16 11:14 18 90 Intake and Output 11/15/16 11/16/16 11/16/16 23:59 07:59 15:59 Intake Total 1100 / 1100 0 / 0 Output Total 450 / 450 Balance 1100 / 1100 -450 / -450 Intake: IV Fluids 1100 / 1100 0.9 % Sodium Chloride 1, 1000 / 1000 000 ML @ 75 mls/hr IVC . [id number] GIFTY Rx#: [id number] Maxipime 1,000 MG In 100 / 100 Dextrose 5% (Minibag+) 100 ML 100 ML @ 200 mls/ hr IVPB Q12HR GIFTY Rx#: [id number] Oral 0 / 0 0 / 0 Output: Catheter 450 / 450 Other: Meal NPO NPO Percent of Meal Consumed 0% 0% Weight 61 kg Patient Weight 11/16/16 23:59 Weight 61 kg - Head Head exam: Present: normal inspection - Respiratory Respiratory exam: Present: CTAB - Cardiovascular Cardiovascular exam: Present: RRR - GI/Abdominal Additional comments: No tenderness with palpation. No organomegaly - Extremities Exam Extremities exam: Present: pedal edema - Neurological Exam Additional comments: Oriented x 1. follows basic commands. Oncology: Obj Data - Labs CBC & Chem 7: 11/16/16 05:56 11/16/16 07:01 Labs: Laboratory Results - last 24 hr 11/11/16 11/15/16 11/16/16 09:22 11:52 05:56 WBC 7.8 RBC 3.00 L Hgb 8.8 L Hct 27.7 L MCV 92.3 MCH 29.3 MCHC 31.8 RDW 17.1 H Plt Count 124 L MPV 10.7 Immature Gran % 1.8 Seg Neutrophils % 81.2 Lymphocytes % 7.7 Monocytes % 8.1 Eosinophils % 0.9 Basophils % 0.3 Neutrophils # 6.3 Lymphocytes # 0.6 Monocytes # 0.6 Eosinophils # 0.1 Basophils # 0.0 Sodium Potassium Chloride Carbon Dioxide BUN Creatinine Est GFR ( Amer) Est GFR (Non-Af Amer) BUN/Creatinine Ratio Glucose POC Glucose 82 Calculated Osmolality Calcium Total Bilirubin AST ALT Alkaline Phosphatase Serum Total Protein Albumin Globulin Albumin/Globulin Ratio Methylmalonic Acid 0.28 Specimen Rejected 11/16/16 11/16/16 05:56 07:01 WBC RBC Hgb Hct MCV MCH MCHC RDW Plt Count MPV Immature Gran % Seg Neutrophils % Lymphocytes % Monocytes % Eosinophils % Basophils % Neutrophils # Lymphocytes # Monocytes # Eosinophils # Basophils # Sodium 145 Potassium 4.4 Chloride 117 H Carbon Dioxide 17 L BUN 55 H Creatinine 1.63 H Est GFR ( Amer) 51 L Est GFR (Non-Af Amer) 42 L BUN/Creatinine Ratio 34 H Glucose 78 POC Glucose Calculated Osmolality 314 H Calcium 8.8 Total Bilirubin 2.1 H AST 81 H ALT 50 Alkaline Phosphatase 461 H Serum Total Protein 5.3 L Albumin 1.5 L Globulin 3.8 H Albumin/Globulin Ratio 0.4 L Methylmalonic Acid Specimen Rejected Hemolyzed - ABG Interpretation ABG results: PT/INR, D-dimer PT 12.2 Seconds (9.4-12.1) H 11/06/16 18:06 Consult Discharge Plan - Plan [facility]errals: [facility] [Primary Care Provider] - (Patient will follow up with PCP at the [facility])
--- NOTE | 2016-11-16 14:11 | Event Note ---
Date of Encounter: 11/16/16 Time of Encounter: 14:00 Patient is awake at this time, but still drowsy. He is able to follow a few simple commands, and can answer few questions, but still does fall back to sleep quickly, and not able to discuss or process code status discussion. Joana TORO at bedside. Brought in living will he completed at the [facility]. In his living will, he stated that if he had a terminal illness, he would not want life sustaining treatments. Based on this document, Joana desired transition to DNR/DNI status. She is agreeable to temporary feeding if he fails swallow eval. She knows that there is risk of aspiration if tube would migrate or if he pulls out. Awaiting speech to eval again. D/W Dr. Rizvi. Cont to follow
[2016-11-16] MEDS ORDERED: D5% in 0.45% NACL 1,000 ML IVC SCH (15:30)
--- NOTE | 2016-11-16 16:11 | Event Note ---
Date of Encounter: 11/16/16 Time of Encounter: 16:00 Meeting with Joana and treatment team including: Dr. Rizvi, Dr. Sagastume, Tresa Hernandez, Alejandra Garcia, Jhon Cadena, Dr. Noble re: plan of care. Patient not good candidate for PICC/TPN. Arms are edematous and weeping. Would not help his prognosis, and did not tolerate chemotherapy well, has not had response to treatment as of yet. Joana decided to transition to [facility] and keep him comfortable. Explained that we would focus on his comfort and not put him through further testing, lab draws, etc. She verbalized understanding. If he stabilizes for discharge, he would be going to [facility] with [facility], so will not transition to [facility] at this time. D /W Dr. Rizvi/Dr. Sagastume.
[2016-11-16] MEDS: *HR* HYDROmorphone 2 MG/ML SYRINGE IVP PRN (20:10)
[2016-11-17] MEDS: *HR* LORazepam 2 MG/ML VIAL IVP PRN ×3 (04:35→20:15)
[2016-11-17] MEDS ORDERED: *HR* Enoxaparin 40 MG/0.4 ML SYRINGE SQ SCH (06:00)
--- NOTE | 2016-11-17 08:59 | Oncology Inp Progress Note ---
Date of Encounter: 11/17/16 Time of Encounter: 08:57 (1) Metastatic malignant neuroendocrine tumor to liver Current Visit: Yes Status: Acute Assessment and plan: - I was part of a meeting yesterday that included Joana, patient's HCP and the palliative care team. Joana decided to change his status to comfort care, what seems reasonable in view that his poor prognosis, and that further chemotherapy in view of his very poor performance status and associated co morbidities more likely would be detrimental. I do not think that placing a PEG tube or starting TPN would be appropriate in view of his terminal diagnosis. In despite of pathology consistent with metastatic neurondocrine/small cell, he failed to clearly respond to treatment. - Continue management of comfort care status as per primary team and palliative care. At this time I will sign off, please call us if questions arise. Oncology: Subj Interval history: " I am feeling ok". Patient denies pain, still pleasantly confused. Yesterday after meeting with his lifetime partner Joana, in view of his poor prognosis, lack of improvement, his status was changed to comfort care. - Constitutional Vitals: Vital Signs Temp Pulse Resp BP Pulse Ox 11/16/16 19:00 122 20 161/95 99 11/16/16 14:37 98.5 F 110 14 176/97 95 11/16/16 11:09 97.7 F 100 14 173/96 96 11/16/16 10:25 94 Intake and Output 11/16/16 11/17/16 11/17/16 23:59 07:59 15:59 Intake Total 0 / 0 Output Total 1500 / 1500 Balance 0 / 0 -1500 / -1500 Intake: Oral 0 / 0 Output: Urine 1500 / 1500 Other: Blood Glucose* 85 - ENT Additional comments: refused to open his mouth - Respiratory Respiratory exam: Present: CTAB - GI/Abdominal GI/Abdominal exam: Present: normal bowel sounds - Extremities Exam Extremities exam: Present: normal inspection Oncology: Obj Data - Labs CBC & Chem 7: 11/16/16 05:56 11/16/16 07:01 Labs: Laboratory Results - last 24 hr 11/15/16 11/16/16 11/16/16 05:59 11:13 17:37 POC Glucose 100 H 79 85 - ABG Interpretation ABG results: PT/INR, D-dimer PT 12.2 Seconds (9.4-12.1) H 11/06/16 18:06 Consult Discharge Plan - Plan [facility]errals: [facility] [Primary Care Provider] - (Patient will follow up with PCP at the [facility])
--- NOTE | 2016-11-17 09:15 | Internal Med Progress Note ---
<DmitriNeptali - Last Filed: 11/17/16 11:06> Date of Encounter: 11/17/16 Time of Encounter: 09:14 - Assessment and plan (1) Metastatic malignant neuroendocrine tumor to liver Current Visit: Yes Status: Acute Assessment and plan: Liver, biopsy: Positive for carcinoma with neuroendocrine features, This tumor is aggressive and behaving clinically like small cell carcinoma. Multiple liver metastasis with hepatomegaly. Palliative care on the case, had long discussion with girlfriend yesterday with oncologist, hospitalist, and solderer about goals of care and girlfriend has decided to make him comfort care; they are working on medicaid for hospice considerations (2) Altered mental status Current Visit: Yes Status: Acute Assessment and plan: Multifactorial, secondary to medications given for agitation and progression of cancer Remains NPO as he could not tolerate NGT and not a candidate for TPN Qualifiers: Altered mental status type: unspecified Qualified Code(s): R41.82 - Altered mental status, unspecified (3) Cancer associated pain Current Visit: Yes Status: Acute Assessment and plan: Secondary to aggressive neuroendocrine tumor Palliative care managing pain meds as he cannot tolerate anything by mouth (4) Aspiration into airway Current Visit: Yes Status: Acute Assessment and plan: NPO for now as he failed swallow evaluation Qualifiers: Encounter type: initial encounter Qualified Code(s): T17.908A - Unspecified foreign body in respiratory tract, part unspecified causing other injury, initial encounter - Subjective Interval history: Pt seen and examined. He is lethargic and not answering questions appropriately this morning. He states he is in pain but cannot localize where. No one at bedside this morning. - Constitutional Vitals: Temp Pulse Resp BP Pulse Ox 98.5 F 122 20 161/95 99 11/16/16 14:37 11/16/16 19:00 11/16/16 19:00 11/16/16 19:00 11/16/16 19:00 General appearance: Present: cachectic, A&O X 0, disheveled, underweight. Absent: answers questions appropriately - Head Head exam: Present: atraumatic, normocephalic - Eye Eye exam: Present: PERRL, conjuntiva pink, sclera anicteric - Neck Neck exam general surgery: Present: supple, trachea midline. Absent: lymphadenopathy - Respiratory Respiratory exam: Present: CTAB. Absent: accessory muscle use, rales, rhonchi, wheezes - Cardiovascular Cardiovascular exam: Present: +S1, +S2, tachycardia. Absent: diastolic murmur, gallop, rubs, systolic murmur - GI/Abdominal GI/Abdominal exam: Present: normal bowel sounds, soft, no peritoneal signs. Absent: distended, tenderness - Extremities Exam Extremities exam: Present: pedal edema, warm, radial pulses palpable and symetrical. Absent: calf tenderness, cyanotic - Neurological Exam Neurological exam: Present: altered, no focal deficits. Absent: oriented X3, pronater drift, facial droop, speech deficit - Skin Skin exam: Present: dry, intact Internal Medicine: Result - Labs CBC & Chem 7: 11/16/16 05:56 11/16/16 07:01 - ABG Interpretation ABG results: PT/INR, D-dimer PT 12.2 Seconds (9.4-12.1) H 11/06/16 18:06 Consult Discharge Plan - Plan Referrals: [facility] [Primary Care Provider] - (Patient will follow up with PCP at the [facility]) <Donovan Sagastume - Last Filed: 11/17/16 18:12> Date of Encounter: 11/17/16 - Assessment and plan (1) Small cell lung cancer Current Visit: Yes Status: Acute Qualifiers: Laterality: unspecified laterality Qualified Code(s): C34.90 - Malignant neoplasm of unspecified part of unspecified bronchus or lung (2) Metastatic malignant neuroendocrine tumor to liver Current Visit: Yes Status: Acute (3) Aspiration pneumonia Current Visit: Yes Status: Acute Qualifiers: Aspiration pneumonia type: due to regurgitated food Laterality: right Lung location: unspecified part of lung Qualified Code(s): J69.0 - Pneumonitis due to inhalation of food and vomit (4) Generalized weakness Current Visit: Yes Status: Acute (5) Restlessness and agitation Current Visit: Yes Status: Acute (6) Malnutrition Current Visit: Yes Status: Acute Qualifiers: Malnutrition type: protein-calorie malnutrition Protein-calorie malnutrition severity: moderate Qualified Code(s): E44.0 - Moderate protein- calorie malnutrition (7) Dysphagia Current Visit: Yes Status: Acute Qualifiers: Dysphagia type: oral phase Qualified Code(s): R13.11 - Dysphagia, oral phase - Constitutional Vitals: Temp Pulse Resp BP Pulse Ox 98.5 F 122 20 161/95 99 11/16/16 14:37 11/16/16 19:00 11/16/16 19:00 11/16/16 19:00 11/16/16 19:00 Internal Medicine: Result - Labs CBC & Chem 7: 11/16/16 05:56 11/16/16 07:01 - ABG Interpretation ABG results: PT/INR, D-dimer PT 12.2 Seconds (9.4-12.1) H 11/06/16 18:06 - Attending Attestation I examined this patient and my medical decision-making was reviewed with the Resident Physician on 11/17/16. I agree with the documented findings, disposition and treatment plan as described except to the extent set forth below. Mr. Vega is currently admitted for metastatic small cell cancer. He has declined and is currently comfort care. He remains low to moderate risk due to comfort care status and management of acute symptoms. Mr Vega appears comfortable. He is confused when answering questions. No fever. Not able to take PO. Exam Alert. Comfortable Mucus membranes dry Heart tachy Lungs diminished Abd soft Edema present I/P 1. Metastatic small cell cancer 2. Dysphagia Pt now comfort care only. Working on d/c planning Further diagnoses and plan as above.
--- NOTE | 2016-11-17 10:15 | Palliative Progress Note ---
Date of Encounter: 11/17/16 Time of Encounter: 10:13 - Assessment and plan (1) Restlessness and agitation Current Visit: Yes Status: Acute Assessment and plan: Mr. Vega has lorazepam 1mg PRN for agitation. He has required one dose in the past 24 hours. Supportive care with comfort measures. (2) Cancer associated pain Current Visit: Yes Status: Acute Assessment and plan: Hydromorphone 0.5mg as needed for pain. He has used one dose in the past 24 hours. Continue to follow. (3) Counseling regarding advanced care planning and goals of care Current Visit: Yes Status: Acute Assessment and plan: Goals of care discussion yesterday with multidisciplinary team including palliative, oncology and hospitalist. Plan is to pursue comfort measures. Code status changed to reflect change in course. building services coordinator following for discharge needs. (4) Constipation due to opioid therapy Current Visit: Yes Status: Acute Assessment and plan: Bisacodyl PRN for constipation. Last documented BM was 11/14/16. (5) Malnutrition Current Visit: Yes Status: Acute Assessment and plan: Failed speech therapy swallow evaluation yesterday. He was unable to initiate swallow on command. He is alert this morning, but not fully cooperative with exam. Will discuss nutrition and dysphagia waiver with hospitalist. Qualifiers: Malnutrition type: protein-calorie malnutrition Protein-calorie malnutrition severity: moderate Qualified Code(s): E44.0 - Moderate protein- calorie malnutrition (6) Metastatic malignant neuroendocrine tumor to liver Current Visit: Yes Status: Acute - Time Spent With Patient Total time spent is greater than 50% in coordination of care (as documented) at patient's floor/unit and/or counseling patient: - Subjective Interval history: Mr. Vega is lying in bed, alert to person and place. He reports pain, but will not rate pain or describe the pain. He declines pain medication or intervention. Mr. Vega requests "peace and quiet". - Constitutional Vitals: Abnormal lab results RBC 3.00 M/mcL (4.19-5.50) L 11/16/16 05:56 Hgb 8.8 g/dL (12.9-16.9) L 11/16/16 05:56 Hct 27.7 % (37.5-50.1) L 11/16/16 05:56 RDW 17.1 % (11.5-14.5) H 11/16/16 05:56 Plt Count 124 K/mcL (140-400) L 11/16/16 05:56 Anisocytosis 1+ (Not Present) A 11/12/16 03:22 Percent Retic 1.4 % (1.6-2.8) L 11/11/16 09:22 Immature Retic Fraction 7.6 % (11.0-38.0) L 11/11/16 09:22 PT 12.2 Seconds (9.4-12.1) H 11/06/16 18:06 Chloride 117 mEq/L (98-109) H 11/16/16 07:01 Carbon Dioxide 17 mEq/L (19-29) L 11/16/16 07:01 BUN 55 mg/dL (8-26) H 11/16/16 07:01 Creatinine 1.63 mg/dL (0.72-1.25) H 11/16/16 07:01 Est GFR ( Amer) 51 (> 60) L 11/16/16 07:01 Est GFR (Non-Af Amer) 42 (> 60) L 11/16/16 07:01 BUN/Creatinine Ratio 34 (6-26) H 11/16/16 07:01 Calculated Osmolality 314 (280-300) H 11/16/16 07:01 Iron 41 mcg/dL (65-175) L 11/11/16 09:22 Transferrin 138 mg/dL (174-364) L 11/11/16 09:22 Ferritin 1554 ng/ml (22-275) H 11/11/16 09:22 Total Bilirubin 2.1 mg/dL (0.2-1.2) H 11/16/16 07:01 Direct Bilirubin 1.4 mg/dL (0.0-0.5) H 11/06/16 17:15 AST 81 Units/L (5-34) H 11/16/16 07:01 Alkaline Phosphatase 461 Units/L (38-126) H 11/16/16 07:01 Lactate Dehydrogenase > 3325 Units/L (159-327) H 11/11/16 09:22 Creatine Kinase 468 Units/L (30-200) H 11/06/16 18:06 Serum Total Protein 5.3 g/dL (6.0-8.3) L 11/16/16 07:01 Albumin 1.5 g/dL (3.5-5.0) L 11/16/16 07:01 Globulin 3.8 g/dL (2.4-3.5) H 11/16/16 07:01 Albumin/Globulin Ratio 0.4 (1.1-2.2) L 11/16/16 07:01 Vitamin B12 > 2000 pg/mL (213-816) H 11/11/16 09:22 Folate 5.4 ng/mL (7.0-31.4) L 11/11/16 09:22 Urine Clarity Turbid (Clear) A 11/14/16 13:20 Urine Protein 30 mg/dL (Neg-Trace) H 11/14/16 13:20 Urine Blood Moderate (Negative) H 11/14/16 13:20 Ur Leukocyte Esterase Trace (Negative) H 11/14/16 13:20 Urine Microscopic RBC 3-5 per hpf (0-3) H 11/14/16 13:20 Urine Microscopic WBC 15-30 per hpf (0-3) H 11/14/16 13:20 Ur Squamous Epith Cells Many per lpf (None-Few) H 11/14/16 13:20 Granular Casts Moderate per lpf (None Seen) H 11/14/16 13:20 Ur Culture Indicated? YES (NO) A 11/14/16 13:20 General appearance: Present: cooperative, no acute distress Exam: 66 year old male patient, cachectic, somewhat cooperative - Eye Eye exam: Present: PERRL - Respiratory Respiratory exam: Present: decreased breath sounds. Absent: accessory muscle use, respiratory distress, tachypnea - Cardiovascular Cardiovascular exam: Present: RRR - GI/Abdominal GI/Abdominal exam: Present: soft. Absent: tenderness - Extremities Exam Extremities exam: Present: pedal edema - Expanded Upper Extremity Exam Forearm wrist exam: Present: swelling (weeping edema) - Neurological Exam Neurological exam: Present: alert (oriented to person and place. ) - Psychiatric Psychiatric exam: Present: agitated. Absent: anxious - Skin Additional comments: upper extremities edematous with weeping areas. Palliative Quality Palliative Quality: Screen for Code Status: Yes, Screen for Goals of Care: Yes, Screen for Pain: Yes, If Pain Regimen Started, Initiate Bowel Regimen: NA ( Kayexelate inducing diarrhea), Screen for Nausea/Vomitting: Yes Code Status: 11/16/16 14:02 DNR [Resuscitation Status: Active] [RES] Routine Comment: Resuscitation Status: [id number] DNR [Resuscitation Status: Active] [RES] Routine Comment: Resuscitation Status: DNR-Comfort Care - Labs CBC & Chem 7: 11/16/16 05:56 11/16/16 07:01 Labs: Laboratory Results - last 24 hr 11/15/16 11/16/16 11/16/16 05:59 11:13 17:37 POC Glucose 100 H 79 85 - ABG Interpretation ABG results: PT/INR, D-dimer PT 12.2 Seconds (9.4-12.1) H 11/06/16 18:06 Consult Discharge Plan - Plan Referrals: [facility] [Primary Care Provider] - (Patient will follow up with PCP at the [facility])
[2016-11-18] MEDS: *HR* HYDROmorphone 2 MG/ML SYRINGE IVP PRN ×3 (02:21→21:30)
--- NOTE | 2016-11-18 10:15 | Internal Med Progress Note ---
<RizviNeptali - Last Filed: 11/18/16 10:15> Date of Encounter: 11/18/16 Time of Encounter: 10:14 - Assessment and plan (1) Metastatic malignant neuroendocrine tumor to liver Current Visit: Yes Status: Acute Assessment and plan: Liver, biopsy: Positive for carcinoma with neuroendocrine features, This tumor is aggressive and behaving clinically like small cell carcinoma. Multiple liver metastasis with hepatomegaly. As discussed yesterday, patient is DNR-CC and is actively dying (2) Altered mental status Current Visit: Yes Status: Acute Assessment and plan: Multifactorial, secondary to medications given for agitation and progression of cancer Remains NPO as he could not tolerate NGT and not a candidate for TPN Qualifiers: Altered mental status type: unspecified Qualified Code(s): R41.82 - Altered mental status, unspecified (3) Cancer associated pain Current Visit: Yes Status: Acute Assessment and plan: Secondary to aggressive neuroendocrine tumor Palliative care managing pain meds as he cannot tolerate anything by mouth (4) Aspiration into airway Current Visit: Yes Status: Acute Assessment and plan: NPO for now as he failed swallow evaluation Joana -girlfriend and MPOA may sign dysphagia waiver today Qualifiers: Encounter type: initial encounter Qualified Code(s): T17.908A - Unspecified foreign body in respiratory tract, part unspecified causing other injury, initial encounter - Subjective Interval history: Pt seen and examined. He remains lethargic, minimally responsive, and not answering questions appropriately this morning. No one at bedside this morning. - Constitutional Vitals: Temp Pulse Resp BP Pulse Ox 98.3 F 134 18 168/105 98 11/17/16 19:49 11/18/16 02:13 11/18/16 02:13 11/18/16 02:13 11/18/16 02:13 General appearance: Present: cachectic, A&O X 0, disheveled, underweight. Absent: answers questions appropriately - Head Head exam: Present: atraumatic, normocephalic - Eye Eye exam: Present: PERRL, conjuntiva pink, sclera anicteric - Neck Neck exam general surgery: Present: supple, trachea midline. Absent: lymphadenopathy - Respiratory Respiratory exam: Present: wheezes. Absent: accessory muscle use, rales, rhonchi - Cardiovascular Cardiovascular exam: Present: RRR, +S1, +S2. Absent: diastolic murmur, gallop, rubs, systolic murmur - GI/Abdominal GI/Abdominal exam: Present: normal bowel sounds, soft, no peritoneal signs. Absent: distended, tenderness - Extremities Exam Extremities exam: Present: warm, radial pulses palpable and symetrical. Absent : calf tenderness, cyanotic, pedal edema - Neurological Exam Neurological exam: Present: altered, no focal deficits. Absent: facial droop, speech deficit - Skin Skin exam: Present: dry, intact Internal Medicine: Result - Labs CBC & Chem 7: 11/16/16 05:56 11/16/16 07:01 - ABG Interpretation ABG results: PT/INR, D-dimer PT 12.2 Seconds (9.4-12.1) H 11/06/16 18:06 Consult Discharge Plan - Plan Referrals: [facility] [Primary Care Provider] - (Patient will follow up with PCP at the [facility]) <Donovan Sagastume - Last Filed: 11/18/16 13:47> Date of Encounter: 11/18/16 - Assessment and plan (1) Aspiration pneumonia Current Visit: Yes Status: Acute Qualifiers: Aspiration pneumonia type: due to regurgitated food Laterality: right Lung location: unspecified part of lung Qualified Code(s): J69.0 - Pneumonitis due to inhalation of food and vomit (2) Small cell lung cancer Current Visit: Yes Status: Acute Qualifiers: Laterality: unspecified laterality Qualified Code(s): C34.90 - Malignant neoplasm of unspecified part of unspecified bronchus or lung (3) Metastatic malignant neuroendocrine tumor to liver Current Visit: Yes Status: Acute (4) Generalized weakness Current Visit: Yes Status: Acute (5) Restlessness and agitation Current Visit: Yes Status: Acute (6) Malnutrition Current Visit: Yes Status: Acute Qualifiers: Malnutrition type: protein-calorie malnutrition Protein-calorie malnutrition severity: moderate Qualified Code(s): E44.0 - Moderate protein- calorie malnutrition (7) Dysphagia Current Visit: Yes Status: Acute Qualifiers: Dysphagia type: oral phase Qualified Code(s): R13.11 - Dysphagia, oral phase - Constitutional Vitals: Temp Pulse Resp BP Pulse Ox 97.7 F 115 20 162/91 95 11/18/16 10:44 11/18/16 10:44 11/18/16 10:44 11/18/16 10:44 11/18/16 10:44 Internal Medicine: Result - Labs CBC & Chem 7: 11/16/16 05:56 11/16/16 07:01 - ABG Interpretation ABG results: PT/INR, D-dimer PT 12.2 Seconds (9.4-12.1) H 11/06/16 18:06 - Attending Attestation I examined this patient and my medical decision-making was reviewed with the Resident Physician on 11/18/16. I agree with the documented findings, disposition and treatment plan as described except to the extent set forth below. Mr. Vega is currently admitted with new diagnosis of metastatic small cell cancer presumed to be lung primary. He is now comfort care. He remains moderate risk due to multiple IV meds and adjustments to care. He is being seen by palliative care as well. Mr. Vega is restless at this time. No fever or chills. He opens his eyes but speech is unintelligible. Says "no" to questions about pain. Exam Alert but unable to answer questions. Mucus membranes dry Heart tachy Lungs with some rhonchi Abd soft Edema present I/P 1. Metastatic cancer 2. Dysphagia 3. Comfort care. Working on d/c planning. Further diagnoses and plan as above.
--- NOTE | 2016-11-18 10:39 | Palliative Progress Note ---
Date of Encounter: 11/18/16 Time of Encounter: 10:41 - Assessment and plan (1) Restlessness and agitation Current Visit: Yes Status: Acute Assessment and plan: Mr. Vega has lorazepam 1mg PRN for agitation. He has required two doses in the past 24 hours. Supportive care with comfort measures. (2) Cancer associated pain Current Visit: Yes Status: Acute Assessment and plan: Hydromorphone 0.5mg as needed for pain. He has used one dose in the past 24 hours. Continue to follow. (3) Counseling regarding advanced care planning and goals of care Current Visit: Yes Status: Acute Assessment and plan: Comfort measures and supportive care. Mr. Vega has failed swallow evaluation in the past week. Consider dysphagia waiver and comfort feeds/hydration when POA arrives. Supportive care for pain and agitation. (4) Constipation due to opioid therapy Current Visit: Yes Status: Acute Assessment and plan: Bisacodyl PRN for constipation. Last documented BM was 11/14/16. (5) Malnutrition Current Visit: Yes Status: Acute Assessment and plan: Failed speech therapy swallow evaluation this past week. He was unable to initiate swallow on command. He is alert this morning, but not fully cooperative with exam. Will discuss nutrition and dysphagia waiver with hospitalist. Qualifiers: Malnutrition type: protein-calorie malnutrition Protein-calorie malnutrition severity: moderate Qualified Code(s): E44.0 - Moderate protein- calorie malnutrition (6) Metastatic malignant neuroendocrine tumor to liver Current Visit: Yes Status: Acute (7) Airway clearance impairment Current Visit: Yes Status: Acute Assessment and plan: Likely related to terminal secretions vs. Aspiration. Start atropine drops PRN for oral secretions. - Time Spent With Patient Total time spent is greater than 50% in coordination of care (as documented) at patient's floor/unit and/or counseling patient: - Subjective Interval history: Mr. Vgea is lying in bed, altered mental status with periodic agitation. Uncooperative with exam and interview, subjective information limited. - Constitutional Vitals: Abnormal lab results RBC 3.00 M/mcL (4.19-5.50) L 11/16/16 05:56 Hgb 8.8 g/dL (12.9-16.9) L 11/16/16 05:56 Hct 27.7 % (37.5-50.1) L 11/16/16 05:56 RDW 17.1 % (11.5-14.5) H 11/16/16 05:56 Plt Count 124 K/mcL (140-400) L 11/16/16 05:56 Anisocytosis 1+ (Not Present) A 11/12/16 03:22 Percent Retic 1.4 % (1.6-2.8) L 11/11/16 09:22 Immature Retic Fraction 7.6 % (11.0-38.0) L 11/11/16 09:22 PT 12.2 Seconds (9.4-12.1) H 11/06/16 18:06 Chloride 117 mEq/L (98-109) H 11/16/16 07:01 Carbon Dioxide 17 mEq/L (19-29) L 11/16/16 07:01 BUN 55 mg/dL (8-26) H 11/16/16 07:01 Creatinine 1.63 mg/dL (0.72-1.25) H 11/16/16 07:01 Est GFR ( Amer) 51 (> 60) L 11/16/16 07:01 Est GFR (Non-Af Amer) 42 (> 60) L 11/16/16 07:01 BUN/Creatinine Ratio 34 (6-26) H 11/16/16 07:01 Calculated Osmolality 314 (280-300) H 11/16/16 07:01 Iron 41 mcg/dL (65-175) L 11/11/16 09:22 Transferrin 138 mg/dL (174-364) L 11/11/16 09:22 Ferritin 1554 ng/ml (22-275) H 11/11/16 09:22 Total Bilirubin 2.1 mg/dL (0.2-1.2) H 11/16/16 07:01 Direct Bilirubin 1.4 mg/dL (0.0-0.5) H 11/06/16 17:15 AST 81 Units/L (5-34) H 11/16/16 07:01 Alkaline Phosphatase 461 Units/L (38-126) H 11/16/16 07:01 Lactate Dehydrogenase > 3325 Units/L (159-327) H 11/11/16 09:22 Creatine Kinase 468 Units/L (30-200) H 11/06/16 18:06 Serum Total Protein 5.3 g/dL (6.0-8.3) L 11/16/16 07:01 Albumin 1.5 g/dL (3.5-5.0) L 11/16/16 07:01 Globulin 3.8 g/dL (2.4-3.5) H 11/16/16 07:01 Albumin/Globulin Ratio 0.4 (1.1-2.2) L 11/16/16 07:01 Vitamin B12 > 2000 pg/mL (213-816) H 11/11/16 09:22 Folate 5.4 ng/mL (7.0-31.4) L 11/11/16 09:22 Urine Clarity Turbid (Clear) A 11/14/16 13:20 Urine Protein 30 mg/dL (Neg-Trace) H 11/14/16 13:20 Urine Blood Moderate (Negative) H 11/14/16 13:20 Ur Leukocyte Esterase Trace (Negative) H 11/14/16 13:20 Urine Microscopic RBC 3-5 per hpf (0-3) H 11/14/16 13:20 Urine Microscopic WBC 15-30 per hpf (0-3) H 11/14/16 13:20 Ur Squamous Epith Cells Many per lpf (None-Few) H 11/14/16 13:20 Granular Casts Moderate per lpf (None Seen) H 11/14/16 13:20 Ur Culture Indicated? YES (NO) A 11/14/16 13:20 Exam: 66 year old male, cachectic, confused with mild agitation. - ENT ENT exam: Present: mucous membranes dry - Respiratory Respiratory exam: Present: rhonchi Additional comments: respirations shallow - Cardiovascular Cardiovascular exam: Present: RRR - GI/Abdominal GI/Abdominal exam: Absent: tenderness - Additional comments: gibbons - Expanded Upper Extremity Exam Forearm wrist exam: Present: swelling (weeping) - Neurological Exam Neurological exam: Present: altered, strengths equal and symetr throughout ( global weakness) - Psychiatric Psychiatric exam: Present: agitated, anxious - Skin Additional comments: Allevyn to bilateral heels for protection. Palliative Quality Palliative Quality: Screen for Code Status: Yes, Screen for Goals of Care: Yes, Screen for Pain: Yes, If Pain Regimen Started, Initiate Bowel Regimen: NA ( Kayexelate inducing diarrhea), Screen for Nausea/Vomitting: Yes Code Status: 11/16/16 14:02 DNR [Resuscitation Status: Active] [RES] Routine Comment: Resuscitation Status: [id number] DNR [Resuscitation Status: Active] [RES] Routine Comment: Resuscitation Status: DNR-Comfort Care - Labs CBC & Chem 7: 11/16/16 05:56 11/16/16 07:01 - ABG Interpretation ABG results: PT/INR, D-dimer PT 12.2 Seconds (9.4-12.1) H 11/06/16 18:06 Consult Discharge Plan - Plan [facility]errals: [facility] [Primary Care Provider] - (Patient will follow up with PCP at the [facility])
[2016-11-18] MEDS: *HR* LORazepam 2 MG/ML VIAL IVP PRN ×2 (11:59→21:32)
[2016-11-18] MEDS: Atropine Sulfate 1% 40 DROP/2 ML BOTTLE SL PRN ×2 (14:31→17:17)
[2016-11-19] MEDS: *HR* HYDROmorphone 2 MG/ML SYRINGE IVP PRN ×4 (01:50→17:16)
--- NOTE | 2016-11-19 09:00 | Internal Med Progress Note ---
<DmitriNeptali - Last Filed: 11/19/16 14:15> Date of Encounter: 11/19/16 Time of Encounter: 08:59 - Assessment and plan (1) Metastatic malignant neuroendocrine tumor to liver Current Visit: Yes Status: Acute Assessment and plan: Liver, biopsy: Positive for carcinoma with neuroendocrine features, This tumor is aggressive and behaving clinically like small cell carcinoma. Multiple liver metastasis with hepatomegaly. As discussed with girlfriend over the weekend, patient is DNR-CC and is actively dying (2) Altered mental status Current Visit: Yes Status: Acute Assessment and plan: Multifactorial, secondary to medications given for agitation and progression of cancer Remains NPO as he could not tolerate NGT and not a candidate for TPN Ativan PRN for agitation Qualifiers: Altered mental status type: unspecified Qualified Code(s): R41.82 - Altered mental status, unspecified (3) Cancer associated pain Current Visit: Yes Status: Acute Assessment and plan: Secondary to aggressive neuroendocrine tumor Palliative care managing pain meds as he cannot tolerate anything by mouth (4) Aspiration into airway Current Visit: Yes Status: Acute Assessment and plan: NPO for now as he failed swallow evaluation Joana -girlfriend and MPOA may signed disphagia waiver 11/18/16 Qualifiers: Encounter type: initial encounter Qualified Code(s): T17.908A - Unspecified foreign body in respiratory tract, part unspecified causing other injury, initial encounter - Subjective Interval history: Pt seen and examined. His aunt is at bedside this morning and stated he was somewhat jittery this morning. He has not wanted anything to eat, but does have diet ordered as girlfriend (DPOCTAVIO) signed a dysphagia waiver. - Constitutional Vitals: Temp Pulse Resp BP Pulse Ox 97.7 F 113 18 172/101 96 11/19/16 08:10 11/19/16 08:10 11/19/16 08:10 11/19/16 08:10 11/19/16 08:10 General appearance: Present: cachectic, A&O X 0, disheveled, underweight. Absent: answers questions appropriately - Head Head exam: Present: atraumatic, normocephalic - Eye Eye exam: Present: PERRL, conjuntiva pink, sclera anicteric - Neck Neck exam general surgery: Present: supple, trachea midline. Absent: lymphadenopathy - Respiratory Respiratory exam: Present: rales. Absent: accessory muscle use, rhonchi, wheezes - Cardiovascular Cardiovascular exam: Present: RRR, +S1, +S2. Absent: diastolic murmur, gallop, rubs, systolic murmur - GI/Abdominal GI/Abdominal exam: Present: normal bowel sounds, soft, no peritoneal signs. Absent: distended, tenderness - Extremities Exam Extremities exam: Present: warm, radial pulses palpable and symetrical. Absent : calf tenderness, cyanotic, pedal edema - Neurological Exam Neurological exam: Present: altered, no focal deficits. Absent: oriented X3, pronater drift, facial droop, speech deficit - Skin Skin exam: Present: dry, intact Internal Medicine: Result - Labs CBC & Chem 7: 11/16/16 05:56 11/16/16 07:01 - ABG Interpretation ABG results: PT/INR, D-dimer PT 12.2 Seconds (9.4-12.1) H 11/06/16 18:06 Consult Discharge Plan - Plan Referrals: [facility],PC[facility] [Primary Care Provider] - (Patient will follow up with PCP at the [facility]) <Donovan Sagastume - Last Filed: 11/19/16 16:24> Date of Encounter: 11/19/16 - Assessment and plan (1) Aspiration pneumonia Current Visit: Yes Status: Acute Qualifiers: Aspiration pneumonia type: due to regurgitated food Laterality: right Lung location: unspecified part of lung Qualified Code(s): J69.0 - Pneumonitis due to inhalation of food and vomit (2) Small cell lung cancer Current Visit: Yes Status: Acute Qualifiers: Laterality: unspecified laterality Qualified Code(s): C34.90 - Malignant neoplasm of unspecified part of unspecified bronchus or lung (3) Metastatic malignant neuroendocrine tumor to liver Current Visit: Yes Status: Acute (4) Generalized weakness Current Visit: Yes Status: Acute (5) Restlessness and agitation Current Visit: Yes Status: Acute (6) Malnutrition Current Visit: Yes Status: Acute Qualifiers: Malnutrition type: protein-calorie malnutrition Protein-calorie malnutrition severity: moderate Qualified Code(s): E44.0 - Moderate protein- calorie malnutrition (7) Dysphagia Current Visit: Yes Status: Acute Qualifiers: Dysphagia type: oral phase Qualified Code(s): R13.11 - Dysphagia, oral phase - Constitutional Vitals: Temp Pulse Resp BP Pulse Ox 97.7 F 113 18 172/101 96 11/19/16 09:35 11/19/16 09:35 11/19/16 09:35 11/19/16 09:35 11/19/16 09:35 Internal Medicine: Result - Labs CBC & Chem 7: 11/16/16 05:56 11/16/16 07:01 - ABG Interpretation ABG results: PT/INR, D-dimer PT 12.2 Seconds (9.4-12.1) H 11/06/16 18:06 - Attending Attestation I examined this patient and my medical decision-making was reviewed with the Resident Physician on 11/19/16. I agree with the documented findings, disposition and treatment plan as described except to the extent set forth below. Mr Vega is currently admitted for new diagnosis of metastatic small cell cancer. He is actively dying. He remains moderate risk at this time. Mr. Vega is resting in bed. He appears comfortable. Exam Alert. Comfortable Mucus membranes dry Heart reg No wheeze Abd soft I/P 1. Metastatic small cell cancer 2. Actively dying. Further diagnoses and plan as above.
[2016-11-19] MEDS ORDERED: Haloperidol Lactate 5 MG/ML VIAL IVP PRN (09:06)
[2016-11-19] MEDS: *HR* LORazepam 2 MG/ML VIAL IVP PRN ×3 (09:07→22:58)
--- NOTE | 2016-11-19 09:14 | Palliative Progress Note ---
Date of Encounter: 11/19/16 Time of Encounter: 09:00 - Assessment and plan (1) Restlessness and agitation Current Visit: Yes Status: Acute Assessment and plan: Continue Lorazepam PRN. Utilized x2 last 24 hours. Will add PRN Haloperidol if needed for comfort. (2) Malnutrition Current Visit: Yes Status: Acute Assessment and plan: Comfort feeds if pt alert. Qualifiers: Malnutrition type: protein-calorie malnutrition Protein-calorie malnutrition severity: moderate Qualified Code(s): E44.0 - Moderate protein- calorie malnutrition (3) Cancer associated pain Current Visit: Yes Status: Acute Assessment and plan: Continue IV Hydromorphone PRN and monitor. Utilized x 4 last 24 hours. (4) Constipation due to opioid therapy Current Visit: Yes Status: Acute Assessment and plan: Continue suppository PRN. (5) Nausea & vomiting Current Visit: Yes Status: Acute Qualifiers: Vomiting type: unspecified Vomiting Intractability: unspecified Qualified Code(s): R11.2 - Nausea with vomiting, unspecified (6) Generalized weakness Current Visit: Yes Status: Acute (7) Counseling regarding advanced care planning and goals of care Current Visit: Yes Status: Acute Assessment and plan: POA has began Medicaid process. He will not be able to be placed at ECF until complete. unable to provide care at home. Plan is for [place] and enroll in [facility] hospice at this time, but will re-discuss with her today. (8) Metastatic malignant neuroendocrine tumor to liver Current Visit: Yes Status: Acute - Time Spent With Patient Total time spent is greater than 50% in coordination of care (as documented) at patient's floor/unit and/or counseling patient: - Subjective Interval history: Patient awake and alert, confused. Aunt at bedside. He appears restless, currently receiving Ativan. POA not present - Constitutional Vitals: Abnormal lab results RBC 3.00 M/mcL (4.19-5.50) L 11/16/16 05:56 Hgb 8.8 g/dL (12.9-16.9) L 11/16/16 05:56 Hct 27.7 % (37.5-50.1) L 11/16/16 05:56 RDW 17.1 % (11.5-14.5) H 11/16/16 05:56 Plt Count 124 K/mcL (140-400) L 11/16/16 05:56 Anisocytosis 1+ (Not Present) A 11/12/16 03:22 Percent Retic 1.4 % (1.6-2.8) L 11/11/16 09:22 Immature Retic Fraction 7.6 % (11.0-38.0) L 11/11/16 09:22 PT 12.2 Seconds (9.4-12.1) H 11/06/16 18:06 Chloride 117 mEq/L (98-109) H 11/16/16 07:01 Carbon Dioxide 17 mEq/L (19-29) L 11/16/16 07:01 BUN 55 mg/dL (8-26) H 11/16/16 07:01 Creatinine 1.63 mg/dL (0.72-1.25) H 11/16/16 07:01 Est GFR ( Amer) 51 (> 60) L 11/16/16 07:01 Est GFR (Non-Af Amer) 42 (> 60) L 11/16/16 07:01 BUN/Creatinine Ratio 34 (6-26) H 11/16/16 07:01 Calculated Osmolality 314 (280-300) H 11/16/16 07:01 Iron 41 mcg/dL (65-175) L 11/11/16 09:22 Transferrin 138 mg/dL (174-364) L 11/11/16 09:22 Ferritin 1554 ng/ml (22-275) H 11/11/16 09:22 Total Bilirubin 2.1 mg/dL (0.2-1.2) H 11/16/16 07:01 Direct Bilirubin 1.4 mg/dL (0.0-0.5) H 11/06/16 17:15 AST 81 Units/L (5-34) H 11/16/16 07:01 Alkaline Phosphatase 461 Units/L (38-126) H 11/16/16 07:01 Lactate Dehydrogenase > 3325 Units/L (159-327) H 11/11/16 09:22 Creatine Kinase 468 Units/L (30-200) H 11/06/16 18:06 Serum Total Protein 5.3 g/dL (6.0-8.3) L 11/16/16 07:01 Albumin 1.5 g/dL (3.5-5.0) L 11/16/16 07:01 Globulin 3.8 g/dL (2.4-3.5) H 11/16/16 07:01 Albumin/Globulin Ratio 0.4 (1.1-2.2) L 11/16/16 07:01 Vitamin B12 > 2000 pg/mL (213-816) H 11/11/16 09:22 Folate 5.4 ng/mL (7.0-31.4) L 11/11/16 09:22 Urine Clarity Turbid (Clear) A 11/14/16 13:20 Urine Protein 30 mg/dL (Neg-Trace) H 11/14/16 13:20 Urine Blood Moderate (Negative) H 11/14/16 13:20 Ur Leukocyte Esterase Trace (Negative) H 11/14/16 13:20 Urine Microscopic RBC 3-5 per hpf (0-3) H 11/14/16 13:20 Urine Microscopic WBC 15-30 per hpf (0-3) H 11/14/16 13:20 Ur Squamous Epith Cells Many per lpf (None-Few) H 11/14/16 13:20 Granular Casts Moderate per lpf (None Seen) H 11/14/16 13:20 Ur Culture Indicated? YES (NO) A 11/14/16 13:20 General appearance: Present: no acute distress - Respiratory Respiratory exam: Present: decreased breath sounds, CTAB - Cardiovascular Cardiovascular exam: Present: tachycardia - GI/Abdominal GI/Abdominal exam: Present: normal bowel sounds, soft - Extremities Exam Extremities exam: Present: normal capillary refill, normal inspection - Neurological Exam Additional comments: Alert, confused. Does not follow commands. - Skin Skin exam: Present: dry, warm Palliative Quality Palliative Quality: Screen for Code Status: Yes, Screen for Goals of Care: Yes, Screen for Pain: Yes, If Pain Regimen Started, Initiate Bowel Regimen: NA ( Kayexelate inducing diarrhea), Screen for Nausea/Vomitting: Yes Code Status: 11/16/16 14:02 DNR [Resuscitation Status: Active] [RES] Routine Comment: Resuscitation Status: [id number] DNR [Resuscitation Status: Active] [RES] Routine Comment: Resuscitation Status: DNR-Comfort Care - Labs CBC & Chem 7: 11/16/16 05:56 11/16/16 07:01 - ABG Interpretation ABG results: PT/INR, D-dimer PT 12.2 Seconds (9.4-12.1) H 11/06/16 18:06 Consult Discharge Plan - Plan Referrals: [facility] [Primary Care Provider] - (Patient will [facility] with [facility]CP at the [facility])
[2016-11-19] MEDS: Haloperidol Lactate 5 MG/ML VIAL IVP PRN (13:30)
[2016-11-20] MEDS: Haloperidol Lactate 5 MG/ML VIAL IVP PRN (00:46)
[2016-11-20] MEDS: *HR* LORazepam 2 MG/ML VIAL IVP PRN ×4 (01:32→14:32)
[2016-11-20] MEDS: *HR* HYDROmorphone 2 MG/ML SYRINGE IVP PRN ×2 (08:42→15:08)
[2016-11-20] MEDS ORDERED: *HR* HYDROmorphone 2 MG/ML SYRINGE IVP PRN (08:49)
--- NOTE | 2016-11-20 08:53 | Palliative Progress Note ---
Date of Encounter: 11/20/16 Time of Encounter: 08:45 - Assessment and plan (1) Restlessness and agitation Current Visit: Yes Status: Acute Assessment and plan: In discussion with family at bedside, agitation is increasing. Will schedule Haloperidol 1mg every 6 hours and adjust if needed. (2) Malnutrition Current Visit: Yes Status: Acute Qualifiers: Malnutrition type: protein-calorie malnutrition Protein-calorie malnutrition severity: moderate Qualified Code(s): E44.0 - Moderate protein- calorie malnutrition (3) Cancer associated pain Current Visit: Yes Status: Acute Assessment and plan: Will schedule Hydromorphone 0.5 every 4 hours and allow every 2 hours PRN. MOnitor. If he loses IV access, will transition to Roxanol 10mg. (4) Constipation due to opioid therapy Current Visit: Yes Status: Acute (5) Nausea & vomiting Current Visit: Yes Status: Acute Assessment and plan: No BM for 6 days. Will give suppository today. Qualifiers: Vomiting type: unspecified Vomiting Intractability: unspecified Qualified Code(s): R11.2 - Nausea with vomiting, unspecified (6) Generalized weakness Current Visit: Yes Status: Acute (7) Counseling regarding advanced care planning and goals of care Current Visit: Yes Status: Acute Assessment and plan: Awaiting medicaid approval to place at [facility] with [place] hosp[facility]. Will continue comfort care measures. He did have mottling yesterday that is not present today at my visit. (8) Metastatic malignant neuroendocrine tumor to liver Current Visit: Yes Status: Acute - Time Spent With Patient Total time spent is greater than 50% in coordination of care (as documented) at patient's floor/unit and/or counseling patient: 25 - 35 minutes - Subjective Interval history: Patient awake and alert, confused. Aunt at bedside. Restless and complaining of abd pain. Primary nurse in room and medicating at this time. Patient turned to left side. - Constitutional Vitals: Abnormal lab results RBC 3.00 M/mcL (4.19-5.50) L 11/16/16 05:56 Hgb 8.8 g/dL (12.9-16.9) L 11/16/16 05:56 Hct 27.7 % (37.5-50.1) L 11/16/16 05:56 RDW 17.1 % (11.5-14.5) H 11/16/16 05:56 Plt Count 124 K/mcL (140-400) L 11/16/16 05:56 Anisocytosis 1+ (Not Present) A 11/12/16 03:22 Percent Retic 1.4 % (1.6-2.8) L 11/11/16 09:22 Immature Retic Fraction 7.6 % (11.0-38.0) L 11/11/16 09:22 PT 12.2 Seconds (9.4-12.1) H 11/06/16 18:06 Chloride 117 mEq/L (98-109) H 11/16/16 07:01 Carbon Dioxide 17 mEq/L (19-29) L 11/16/16 07:01 BUN 55 mg/dL (8-26) H 11/16/16 07:01 Creatinine 1.63 mg/dL (0.72-1.25) H 11/16/16 07:01 Est GFR ( Amer) 51 (> 60) L 11/16/16 07:01 Est GFR (Non-Af Amer) 42 (> 60) L 11/16/16 07:01 BUN/Creatinine Ratio 34 (6-26) H 11/16/16 07:01 Calculated Osmolality 314 (280-300) H 11/16/16 07:01 Iron 41 mcg/dL (65-175) L 11/11/16 09:22 Transferrin 138 mg/dL (174-364) L 11/11/16 09:22 Ferritin 1554 ng/ml (22-275) H 11/11/16 09:22 Total Bilirubin 2.1 mg/dL (0.2-1.2) H 11/16/16 07:01 Direct Bilirubin 1.4 mg/dL (0.0-0.5) H 11/06/16 17:15 AST 81 Units/L (5-34) H 11/16/16 07:01 Alkaline Phosphatase 461 Units/L (38-126) H 11/16/16 07:01 Lactate Dehydrogenase > 3325 Units/L (159-327) H 11/11/16 09:22 Creatine Kinase 468 Units/L (30-200) H 11/06/16 18:06 Serum Total Protein 5.3 g/dL (6.0-8.3) L 11/16/16 07:01 Albumin 1.5 g/dL (3.5-5.0) L 11/16/16 07:01 Globulin 3.8 g/dL (2.4-3.5) H 11/16/16 07:01 Albumin/Globulin Ratio 0.4 (1.1-2.2) L 11/16/16 07:01 Vitamin B12 > 2000 pg/mL (213-816) H 11/11/16 09:22 Folate 5.4 ng/mL (7.0-31.4) L 11/11/16 09:22 Urine Clarity Turbid (Clear) A 11/14/16 13:20 Urine Protein 30 mg/dL (Neg-Trace) H 11/14/16 13:20 Urine Blood Moderate (Negative) H 11/14/16 13:20 Ur Leukocyte Esterase Trace (Negative) H 11/14/16 13:20 Urine Microscopic RBC 3-5 per hpf (0-3) H 11/14/16 13:20 Urine Microscopic WBC 15-30 per hpf (0-3) H 11/14/16 13:20 Ur Squamous Epith Cells Many per lpf (None-Few) H 11/14/16 13:20 Granular Casts Moderate per lpf (None Seen) H 11/14/16 13:20 Ur Culture Indicated? YES (NO) A 11/14/16 13:20 General appearance: Present: mild distress - Respiratory Respiratory exam: Present: decreased breath sounds, CTAB - Cardiovascular Cardiovascular exam: Present: +S1, +S2, tachycardia - GI/Abdominal GI/Abdominal exam: Present: normal bowel sounds, soft, tenderness - Additional comments: Light holland urine in catheter tubing - Extremities Exam Additional comments: Lower extremities cool to touch. - Neurological Exam Neurological exam: Present: alert Additional comments: restless. Does not follow commands. - Skin Skin exam: Present: dry, pallor, warm Palliative Quality Palliative Quality: Screen for Code Status: Yes, Screen for Goals of Care: Yes, Screen for Pain: Yes, If Pain Regimen Started, Initiate Bowel Regimen: NA ( Kayexelate inducing diarrhea), Screen for Nausea/Vomitting: Yes Code Status: 11/16/16 14:02 DNR [Resuscitation Status: Active] [RES] Routine Comment: Resuscitation Status: [id number] DNR [Resuscitation Status: Active] [RES] Routine Comment: Resuscitation Status: DNR-Comfort Care - Labs CBC & Chem 7: 11/16/16 05:56 11/16/16 07:01 - ABG Interpretation ABG results: PT/INR, D-dimer PT 12.2 Seconds (9.4-12.1) H 11/06/16 18:06 Consult Discharge Plan - Plan Referrals: [facility],PCP [Primary Care Provider] - (Patient will follow up with PCP at the [facility])
[2016-11-20] MEDS ORDERED: Bisacodyl 10 MG RECTAL SUPPOSITORY RC ONE (10:00)
[2016-11-20] MEDS: Atropine Sulfate 1% 40 DROP/2 ML BOTTLE SL PRN (10:19)
[2016-11-20] MEDS: Haloperidol Lactate 5 MG/ML VIAL IVP SCH ×2 (11:40→17:00)
[2016-11-20] MEDS ORDERED: *HR* HYDROmorphone 2 MG/ML SYRINGE IVP SCH (12:00)
[2016-11-20] MEDS: *HR* HYDROmorphone 2 MG/ML SYRINGE IVP SCH ×2 (17:00→19:47)
--- NOTE | 2016-11-20 17:50 | Internal Med Progress Note ---
Date of Encounter: 11/20/16 Time of Encounter: 15:00 - Assessment and plan (1) Aspiration pneumonia Current Visit: Yes Status: Acute Assessment and plan: Off abx at this time. PO as able. Comfort care. Qualifiers: Aspiration pneumonia type: due to regurgitated food Laterality: right Lung location: unspecified part of lung Qualified Code(s): J69.0 - Pneumonitis due to inhalation of food and vomit (2) Small cell lung cancer Current Visit: Yes Status: Acute Assessment and plan: Comfort care at this time. Qualifiers: Laterality: unspecified laterality Qualified Code(s): C34.90 - Malignant neoplasm of unspecified part of unspecified bronchus or lung (3) Metastatic malignant neuroendocrine tumor to liver Current Visit: Yes Status: Acute (4) Generalized weakness Current Visit: Yes Status: Acute (5) Restlessness and agitation Current Visit: Yes Status: Acute Assessment and plan: Seems to be improved with current medicine regimen. (6) Dysphagia Current Visit: Yes Status: Acute Assessment and plan: PO intake as able. Qualifiers: Dysphagia type: oral phase Qualified Code(s): R13.11 - Dysphagia, oral phase (7) Malnutrition Current Visit: Yes Status: Acute Qualifiers: Malnutrition type: protein-calorie malnutrition Protein-calorie malnutrition severity: moderate Qualified Code(s): E44.0 - Moderate protein- calorie malnutrition - Subjective Interval history: Mr. Vega is currently admitted for new diagnosis of SCLC with mets. He is now DNRCC and unable to take in any nutrition. He remains low risk due to his overall clinical condition and comfort care status. Mr. Vega was more agitated this AM but is resting better now. Aunt at bedside. - Constitutional Vitals: Temp Pulse Resp BP Pulse Ox 99.2 F 135 10 167/102 95 11/20/16 07:17 11/20/16 07:17 11/20/16 07:17 11/20/16 07:17 11/20/16 07:17 General appearance: Present: cachectic, A&O X 0, disheveled, underweight. Absent: answers questions appropriately - Head Head exam: Present: normocephalic - ENT ENT exam: Present: mucous membranes dry - Respiratory Respiratory exam: Present: CTAB. Absent: rhonchi, wheezes - Cardiovascular Cardiovascular exam: Present: RRR. Absent: tachycardia - GI/Abdominal GI/Abdominal exam: Present: soft - Extremities Exam Extremities exam: Present: pedal edema, warm - Skin Skin exam: Present: warm. Absent: erythema, rash Internal Medicine: Result - Labs CBC & Chem 7: 11/16/16 05:56 11/16/16 07:01 - ABG Interpretation ABG results: PT/INR, D-dimer PT 12.2 Seconds (9.4-12.1) H 11/06/16 18:06 Consult Discharge Plan - Plan [facility]errals: [facility] [Primary Care Provider] - (Patient will follow up with PCP at the [facility])
[2016-11-20 19:35] VITALS: BP 168/95
[2016-11-21] MEDS: *HR* HYDROmorphone 2 MG/ML SYRINGE IVP SCH ×3 (00:24→08:16)
[2016-11-21] MEDS: Haloperidol Lactate 5 MG/ML VIAL IVP SCH ×2 (00:24→05:53)
[2016-11-21] MEDS: *HR* HYDROmorphone 2 MG/ML SYRINGE IVP PRN ×2 (04:21→09:40)
[2016-11-21] MEDS: *HR* LORazepam 2 MG/ML VIAL IVP PRN (08:20)
[2016-11-21] MEDS: Atropine Sulfate 1% 40 DROP/2 ML BOTTLE SL PRN (08:22)
--- NOTE | 2016-11-21 09:05 | Palliative Progress Note ---
Date of Encounter: 11/21/16 Time of Encounter: 09:00 - Assessment and plan (1) Restlessness and agitation Current Visit: Yes Status: Acute Assessment and plan: Continue scheduled Haldol and PRN Lorazepam. He is much less agitated today. MOnitor (2) Malnutrition Current Visit: Yes Status: Acute Qualifiers: Malnutrition type: protein-calorie malnutrition Protein-calorie malnutrition severity: moderate Qualified Code(s): E44.0 - Moderate protein- calorie malnutrition (3) Cancer associated pain Current Visit: Yes Status: Acute Assessment and plan: Continue scheduled Dilaudid. Appears comfortable. Has only required one breakthrough dose last 24 hours. Monitor (4) Constipation due to opioid therapy Current Visit: Yes Status: Acute Assessment and plan: Had Dulcolax supp yesterday. No results documented. Abd is soft and he appears comfortable. Monitor (5) Nausea & vomiting Current Visit: Yes Status: Acute Qualifiers: Vomiting type: unspecified Vomiting Intractability: unspecified Qualified Code(s): R11.2 - Nausea with vomiting, unspecified (6) Generalized weakness Current Visit: Yes Status: Acute (7) Counseling regarding advanced care planning and goals of care Current Visit: Yes Status: Acute Assessment and plan: D/W and aunt at bedside. Decreased mental status may be related to opioids , but they desire him comfortable, and state he is resting much better with scheduled medications. Resp slightly more shallow than at my visit yesterday, still regular. Does have some mottling lower extremities and is more tachycardic. D/W that pt may in hours to a few days. She verbalized understanding and stated she is aware and has been preparing for his passing. Medicaid still not approved for transition to ECF, however, not sure at this point if he could survive transfer. (8) Metastatic malignant neuroendocrine tumor to liver Current Visit: Yes Status: Acute - Time Spent With Patient Total time spent is greater than 50% in coordination of care (as documented) at patient's floor/unit and/or counseling patient: - Subjective Interval history: Patient sleeping. Girlfriend and aunt at bedside. Appears comfortable and not in any distress. Family pleased with care. - Constitutional Vitals: Abnormal lab results RBC 3.00 M/mcL (4.19-5.50) L 11/16/16 05:56 Hgb 8.8 g/dL (12.9-16.9) L 11/16/16 05:56 Hct 27.7 % (37.5-50.1) L 11/16/16 05:56 RDW 17.1 % (11.5-14.5) H 11/16/16 05:56 Plt Count 124 K/mcL (140-400) L 11/16/16 05:56 Anisocytosis 1+ (Not Present) A 11/12/16 03:22 Percent Retic 1.4 % (1.6-2.8) L 11/11/16 09:22 Immature Retic Fraction 7.6 % (11.0-38.0) L 11/11/16 09:22 PT 12.2 Seconds (9.4-12.1) H 11/06/16 18:06 Chloride 117 mEq/L (98-109) H 11/16/16 07:01 Carbon Dioxide 17 mEq/L (19-29) L 11/16/16 07:01 BUN 55 mg/dL (8-26) H 11/16/16 07:01 Creatinine 1.63 mg/dL (0.72-1.25) H 11/16/16 07:01 Est GFR ( Amer) 51 (> 60) L 11/16/16 07:01 Est GFR (Non-Af Amer) 42 (> 60) L 11/16/16 07:01 BUN/Creatinine Ratio 34 (6-26) H 11/16/16 07:01 Calculated Osmolality 314 (280-300) H 11/16/16 07:01 Iron 41 mcg/dL (65-175) L 11/11/16 09:22 Transferrin 138 mg/dL (174-364) L 11/11/16 09:22 Ferritin 1554 ng/ml (22-275) H 11/11/16 09:22 Total Bilirubin 2.1 mg/dL (0.2-1.2) H 11/16/16 07:01 Direct Bilirubin 1.4 mg/dL (0.0-0.5) H 11/06/16 17:15 AST 81 Units/L (5-34) H 11/16/16 07:01 Alkaline Phosphatase 461 Units/L (38-126) H 11/16/16 07:01 Lactate Dehydrogenase > 3325 Units/L (159-327) H 11/11/16 09:22 Creatine Kinase 468 Units/L (30-200) H 11/06/16 18:06 Serum Total Protein 5.3 g/dL (6.0-8.3) L 11/16/16 07:01 Albumin 1.5 g/dL (3.5-5.0) L 11/16/16 07:01 Globulin 3.8 g/dL (2.4-3.5) H 11/16/16 07:01 Albumin/Globulin Ratio 0.4 (1.1-2.2) L 11/16/16 07:01 Vitamin B12 > 2000 pg/mL (213-816) H 11/11/16 09:22 Folate 5.4 ng/mL (7.0-31.4) L 11/11/16 09:22 Urine Clarity Turbid (Clear) A 11/14/16 13:20 Urine Protein 30 mg/dL (Neg-Trace) H 11/14/16 13:20 Urine Blood Moderate (Negative) H 11/14/16 13:20 Ur Leukocyte Esterase Trace (Negative) H 11/14/16 13:20 Urine Microscopic RBC 3-5 per hpf (0-3) H 11/14/16 13:20 Urine Microscopic WBC 15-30 per hpf (0-3) H 11/14/16 13:20 Ur Squamous Epith Cells Many per lpf (None-Few) H 11/14/16 13:20 Granular Casts Moderate per lpf (None Seen) H 11/14/16 13:20 Ur Culture Indicated? YES (NO) A 11/14/16 13:20 General appearance: Present: no acute distress - Respiratory Respiratory exam: Present: decreased breath sounds, CTAB - Cardiovascular Cardiovascular exam: Present: irregular rhythm, tachycardia - GI/Abdominal GI/Abdominal exam: Present: normal bowel sounds, soft - Additional comments: Clear yellow urine in gibbons - Extremities Exam Additional comments: Some mottling to lower extremities noted - Neurological Exam Additional comments: Patient moving occasionally, sleeping through assessment. Does not follow commands. - Skin Skin exam: Present: dry, pallor, warm Palliative Quality Palliative Quality: Screen for Code Status: Yes, Screen for Goals of Care: Yes, Screen for Pain: Yes, If Pain Regimen Started, Initiate Bowel Regimen: NA ( Kayexelate inducing diarrhea), Screen for Nausea/Vomitting: Yes Code Status: 11/16/16 14:02 DNR [Resuscitation Status: Active] [RES] Routine Comment: Resuscitation Status: [id number] DNR [Resuscitation Status: Active] [RES] Routine Comment: Resuscitation Status: DNR-Comfort Care - Labs CBC & Chem 7: 11/16/16 05:56 11/16/16 07:01 - ABG Interpretation ABG results: PT/INR, D-dimer PT 12.2 Seconds (9.4-12.1) H 11/06/16 18:06 Consult Discharge Plan - Plan [facility]errals: [facility] [Primary Care Provider] - (Patient will follow up with PCP at the [facility])
--- NOTE | 2016-11-21 15:59 | Death Note ---
Discharge Sum: Summary - Date and Time Date of admission: 11/07/16 08:43 Date of : 11/21/16 Time of : 10:40 - Summary Details: 66 y/o male presented to ED with complaints of abdominal pain. CT showed diffuse hepatic metastatic disease. He had previously had a biopsy revealing carcinoma and was felt to be metastatic small cell lung cancer. He was admitted to [facility]. He was evaluated by oncology and started on carboplatin and etoposide. He received nine doses. He also was seen by palliative care service. He did not have significant response to treatment. He began to decline and have increased pain. He was more agitated and somnolent and began to have difficulty with dysphagia. He was unable to take any PO. Further discussion with POA/girlfriend and he was made comfort care. He continued to decline and on 11/21 he peacefully. D/C time 41min - Additional Data Confirmation of as documented by pronouncing clinician: no pulse Family: at bedside Attending/PCP notified?: Yes Attending physician: Donovan Sagastume, DO Was code activated?: No Autopsy requested?: No forensic computer examiner notified?: No Organ bank notified?: No Advance directives: Yes Hospice patient?: No Discharge Sum: Diag - PCOD Probable Cause of : Small cell carcinoma of lung Discharge Sum: Prov - Provider [facility] clinician: Jacky Marques Attending physician on admission: Jacky Marques Consults: 11/12/16 16:00 Consult to Physical Therapy [CONS] Routine Comment: Evaluate, develop and implement POC Reason for Consult: evaluate and treat, pt rehab candidate? 11/12/16 16:01 Consult to Occupational Therapy [CONS] Routine Comment: Evaluate, develop and implement POC Reason for Consult: rehab candidate? 11/14/16 14:23 Consult to Speech Therapy [CONS] Stat Comment: Evaluate, develop and implement POC Reason for Consult: possible aspiration, pt began coughing while eating lunch and required staff assistance to clear his throat. Time Notified: 14:26 Call Completed: Yes 11/16/16 15:09 Consult to Invasive Line Access Team [CONS] Routine Reason for Consult: PICC insertion Line Type: PICC Pronouncing clinician: Donovan Sagastume
== END 2016-11-21 10:40 | disposition expired | DRG 871 ==
LOC: 2ANU 16:28 → EMEROO 16:28 → 2ANU 20:20 → SUATTDRO 11-07 08:43 → 2ANU 11-16 18:34
PROVIDERS: ADMIT Internal Medicine; ATTEND Internal Medicine